=== PATIENT | female | born 1950 | race Caucasian/White ===

== ENCOUNTER → 2016-09-18 | Outpatient (CLI) | payer MEDICARE ==
[~2016-09-18] MED LIST: AMLO10TA2 PO; ASPI81TA13 PO; AZOP0.2S OU; AZUL500T3 PO; BIMA01SOL OD; BISO5TAB5 PO; COMB0.2S OU; DOXA1TAB41 PO; DRIS50002 PO; FENO145T PO; FOLI1TAB2 PO; HUMU70IN SC; METH2.5TA PO; MULTCAP PO; PRED1SUS OS; PRED5TA PO; QUIN40TA5 PO; SPIR50TA2 PO; SULF500T2 PO; VITA1CAP25 PO
[2016-09-18 13:36] LABS: CALCIUM LEVEL 8.6 MG/DL (8.8-10.2); CREATININE FOR GFR 2.72 MG/DL (0.55-1.02); GLOMERULAR FILTRATION RATE 18.7 (>45); POTASSIUM SERUM 3.6 MEQ/L (3.5-5.1)
== END ==
LOC: M WUC 09:45
PROVIDERS: ATTEND Physician Assistant Surgical
DX: N18.4 Chronic kidney disease, stage 4 (severe) (principal)

== ENCOUNTER 2017-08-04 19:52 | Emergency (ER) | payer MEDICARE, OTHER, BC ==
[2017-08-04] MEDS: MORPHINE 2 MG/ML 1ML SYRINGE (J2270) IV (21:00)
[2017-08-04 21:14] LABS: BASO % 0.5 % (0.0-1.0); EOS # 0.1 10^3/uL (0.0-0.50); EOS % 1.6 % (0.0-3.0); HEMATOCRIT 35.1 % (36.0-47.0); HEMOGLOBIN 11.1 g/dl (12.0-16.0); IMMATURE GRANULOCYTE % 1.3 % (0-3.0); LYMPH # 1.2 10^3/uL (1.5-4.5); LYMPH % 13.5 % (24.0-44.0); MEAN CORPUSCULAR HGB CONC 31.6 g/dl (32.0-36.5); MEAN CORPUSCULAR VOLUME 85.4 fl (80.0-96.0); MONO # 0.4 10^3/uL (0.0-0.8); MONO % 4.9 % (0.0-5.0); NEUTROPHILS # 6.8 10^3/uL (1.8-7.7); NEUTROPHILS % 78.2 % (36.0-66.0); PLATELET COUNT, AUTOMATED 194 10^3/uL (150-450); RED BLOOD COUNT 4.11 10^6/uL (4.00-5.40); RED CELL DISTRIBUTION WIDTH 14.6 % (11.5-14.5); WHITE BLOOD COUNT 8.6 10^3/uL (4.0-10.0)
[2017-08-04] MEDS: ASPIRIN 325 MG TAB PO (21:30)
[2017-08-04] MEDS: cloNIDine 0.1 MG TAB PO ×2 (21:30→23:49)
[2017-08-04 21:45] LABS: ANION GAP 11 MEQ/L (8-16); BLOOD UREA NITROGEN 43 MG/DL (7-18); CALCIUM LEVEL 9.2 MG/DL (8.8-10.2); CARBON DIOXIDE LEVEL 24 MEQ/L (21-32); CHLORIDE LEVEL 107 MEQ/L (98-107); CPK CREATINE PHOSPHOKINASE 76 U/L (26-192); CREATININE FOR GFR 2.99 MG/DL (0.55-1.30); GLOMERULAR FILTRATION RATE 16.7 (>45); GLUCOSE, FASTING 199 MG/DL (70-100); POTASSIUM SERUM 3.5 MEQ/L (3.5-5.1); SODIUM LEVEL 142 MEQ/L (136-145); TROPONIN I < 0.02 NG/ML (< 0.10)
[2017-08-04 21:46] LABS: CK-MB VALUE MASS 1.1 NG/ML (0.0-3.6); MB/CK RELATIVE INDEX 1.44 (< OR =4)
[2017-08-04 23:08] LABS: BEDSIDE GLUCOSE 155 MG/DL (80-115)
[2017-08-05 02:49] LABS: CPK CREATINE PHOSPHOKINASE 112 U/L (26-192); TROPONIN I 0.67 NG/ML (< 0.10)
[2017-08-05 02:50] LABS: CK-MB VALUE MASS 2.6 NG/ML (0.0-3.6); MB/CK RELATIVE INDEX 2.32 (< OR =4)
[2017-08-05 03:21] LABS: INR 1.08; PROTHROMBIN TIME 14.2 SECONDS (12.4-14.5)
[2017-08-05 03:22] LABS: PARTIAL THROMBOPLASTIN TIME 36.2 SECONDS (26.8-37.9)
[2017-08-05] MEDS: HEPARIN DRIP 25,000 UNITS in APPROPRIATE DILUENT 1 EA IV (03:25)
[2017-08-05] MEDS: HEPARIN SOD (PORCINE) 5000 UNITS/ML VIAL IV (03:25)
== END 2017-08-05 04:20 | disposition short-term general hospital (02) ==
LOC: M ED 08-05 04:20
DX: I21.4 Non-ST elevation (NSTEMI) myocardial infarction (principal); E11.9 Type 2 diabetes mellitus without complications; I10 Essential (primary) hypertension; E78.5 Hyperlipidemia, unspecified; N28.9 Disorder of kidney and ureter, unspecified; I25.10 Atherosclerotic heart disease of native coronary artery without angina pectoris; Z99.2 Dependence on renal dialysis; Z95.5 Presence of coronary angioplasty implant and graft; Z79.899 Other long term (current) drug therapy; Z79.82 Long term (current) use of aspirin; Z79.4 Long term (current) use of insulin
CPT/HCPCS: 71045

== ENCOUNTER → 2018-03-09 | Outpatient (CLI) | payer MEDICARE, OTHER | LOC: M WUC 09:33 | DX: M17.12 Unilateral primary osteoarthritis, left knee (principal); I73.9 Peripheral vascular disease, unspecified; M25.562 Pain in left knee ==

== ENCOUNTER 2018-03-10 02:13 | Inpatient (IN) | payer MEDICARE, OTHER ==
[2018-03-10 02:43] LABS: BEDSIDE GLUCOSE 120 MG/DL (80-115)
[2018-03-10 03:03] LABS: ABG BASE EXCESS -2.7 (-2.0-2.0); ABG HCO3 23.3 MEQ/L (22.0-26.0); ABG O2 SATURATION 91.2 % (95.0-99.0); ABG PARTIAL PRESSURE CO2 45.8 mmHg (35.0-45.0); ABG PARTIAL PRESSURE O2 67.6 mmHg (75.0-100.0); ABG STANDARD HCO3 22.1 MEQ/L (22.0-26.0); ABG TOTAL CO2 24.7 MEQ/L (23.0-31.0); ABG pH (ARTERIAL) 7.324 UNITS (7.350-7.450); BASO % 0.2 % (0.0-1.0); EOS # 0.2 10^3/uL (0.0-0.50); EOS % 1.5 % (0.0-3.0); HEMOGLOBIN 8.6 g/dl (12.0-15.5); IMMATURE GRANULOCYTE % 0.7 % (0-3.0); LYMPH # 1.1 10^3/uL (1.5-4.5); LYMPH % 8.1 % (24.0-44.0); MEAN CORPUSCULAR HEMOGLOBIN 27.2 pg (27.0-33.0); MEAN CORPUSCULAR HGB CONC 30.7 g/dl (32.0-36.5); MEAN CORPUSCULAR VOLUME 88.6 fl (80.0-96.0); MONO # 0.7 10^3/uL (0.0-0.8); MONO % 5.5 % (0.0-5.0); NEUTROPHILS # 10.9 10^3/uL (1.8-7.7); PLATELET COUNT, AUTOMATED 164 10^3/uL (150-450); RED BLOOD COUNT 3.16 10^6/uL (4.00-5.40); RED CELL DISTRIBUTION WIDTH 14.8 % (11.5-14.5)
[2018-03-10] MEDS: NITROGLYCERIN 2% OINT 1 GM *U/D* PKT TOP (03:03)
[2018-03-10 03:14] LABS: ANION GAP 12 MEQ/L (8-16); BLOOD UREA NITROGEN 60 MG/DL (7-18); CALCIUM LEVEL 8.4 MG/DL (8.8-10.2); CARBON DIOXIDE LEVEL 22 MEQ/L (21-32); CHLORIDE LEVEL 111 MEQ/L (98-107); CPK CREATINE PHOSPHOKINASE 78 U/L (26-192); CREATININE FOR GFR 3.68 MG/DL (0.55-1.30); GLOMERULAR FILTRATION RATE 13.1 (>45); GLUCOSE, FASTING 119 MG/DL (70-100); MB/CK RELATIVE INDEX 1.41 (< OR =4); NT-PRO BNP 23771 PG/ML (<125); SODIUM LEVEL 145 MEQ/L (136-145); TROPONIN I 0.05 NG/ML (< 0.10)
[2018-03-10] MEDS ORDERED: NITROGLYCERIN IN D5W 25MG/250ML (100MCG/ML) As Ordered (03:33)
[2018-03-10] MEDS ORDERED: FUROSEMIDE 100 MG/10 ML VIAL (J1940) As Ordered (03:42)
[2018-03-10] MEDS: FUROSEMIDE 100 MG/10 ML VIAL (J1940) IV ×3 (03:45→10:57)
[2018-03-10] MEDS: NITROGLYCERIN/D5W 100MCG/ML 25 MG in APPROPRIATE DILUENT 1 EA IV ×2 (03:45→09:06)
[2018-03-10] MEDS: hydrALAZINE INJ 20 MG/ML VIAL IV (04:45)
[2018-03-10] MEDS ORDERED: GLUCOSE 4 GM CHEW TABLET PO (06:00)
[2018-03-10] MEDS ORDERED: GLUCAGON FOR INJ 1 MG VIAL (J1610) SC (06:00)
[2018-03-10] MEDS: HumaLOG INSULIN (NovoLOG) PER UNIT SC ×3 (06:00→18:00)
[2018-03-10] MEDS ORDERED: DEXTROSE 50% 50 ML SYRINGE IV (06:00)
[2018-03-10 06:14] LABS: FERRITIN 105 NG/ML (8-252); IRON (FE) 20 UG/DL (50-170); MAGNESIUM LEVEL 2.2 MG/DL (1.8-2.4); PERCENT SATURATION 7.5 % (13.2-45.0); PHOSPHORUS LEVEL 5.3 MG/DL (2.5-4.9); THYROID STIMULATING HORMONE 0.698 uIU/ML (0.358-3.740); TOTAL IRON BINDING CAPACITY 266 UG/DL (250-450)
[2018-03-10 06:44] LABS: BEDSIDE GLUCOSE 139 MG/DL (80-115)
[2018-03-10] MEDS: cefTRIAXone SOD 1 GM in D5W MINI-BAG PLUS 50 ML IV (07:01)
[2018-03-10] MEDS: CHLOROTHIAZIDE 500 MG VIAL (J1205) IV ×2 (07:01→16:07)
[2018-03-10 08:26] LABS: TROPONIN I 0.28 NG/ML (< 0.10)
[2018-03-10] MEDS: TICAGRELOR 90 MG TABLET (BRILINTA) PO ×2 (08:58→21:30)
[2018-03-10] MEDS: sulfaSALAzine 500 MG TABEC PO ×2 (08:58→21:18)
[2018-03-10] MEDS: POTASSIUM CHLORIDE 10 MEQ SR TABLET PO (08:59)
[2018-03-10] MEDS: FOLIC ACID 1 MG TAB PO (08:59)
[2018-03-10] MEDS: predniSONE 5 MG TAB PO (08:59)
[2018-03-10] MEDS: ASPIRIN 81 MG ENTERIC TAB PO (08:59)
[2018-03-10] MEDS: TIMOLOL MALEATE 0.5% OPHTH SOLN 5 ML OU ×2 (09:06→21:26)
[2018-03-10] MEDS: AZITHROMYCIN INJ 500 MG, VIAL MATE ADAPTER 1 EACH in D5W 250 ML IV (09:06)
[2018-03-10] MEDS: prednisoLONE ACET 1% OPHTH SUSP 5ML OS (09:09)
[2018-03-10 12:24] LABS: BEDSIDE GLUCOSE 242 MG/DL (80-115)
[2018-03-10] MEDS: FUROSEMIDE injection 250 MG in D5W 225 ML IV (12:25)
[2018-03-10] MEDS ORDERED: ETOMIDATE INJ 20MG/10ML VIAL As Ordered (12:50)
[2018-03-10] MEDS ORDERED: fentaNYL 100 MCG/2 ML INJECTION (J3010) As Ordered (12:50)
[2018-03-10] MEDS ORDERED: PROPOFOL 1,000 MG/100 ML VIAL As Ordered (12:50)
[2018-03-10] MEDS: fentaNYL 100 MCG/2 ML INJECTION (J3010) IV (12:57)
[2018-03-10] MEDS: ETOMIDATE INJ 20MG/10ML VIAL IV (13:00)
[2018-03-10] MEDS ORDERED: MIDAZOLAM INJ 2 MG/2 ML VIAL (J2250) As Ordered ×3 (13:01→13:33)
[2018-03-10] MEDS: MIDAZOLAM INJ 2 MG/2 ML VIAL (J2250) IV ×2 (13:15→13:43)
[2018-03-10] MEDS: PROPOFOL 1,000 MG in APPROPRIATE DILUENT 1 EA IV ×4 (13:20→18:48)
[2018-03-10 14:40] LABS: HEMOGLOBIN 7.4 g/dl (12.0-15.5)
[2018-03-10 15:06] LABS: ANION GAP 10 MEQ/L (8-16); BLOOD UREA NITROGEN 60 MG/DL (7-18); CALCIUM LEVEL 7.7 MG/DL (8.8-10.2); CARBON DIOXIDE LEVEL 25 MEQ/L (21-32); CHLORIDE LEVEL 108 MEQ/L (98-107); CREATININE FOR GFR 3.92 MG/DL (0.55-1.30); GLOMERULAR FILTRATION RATE 12.2 (>45); GLUCOSE, FASTING 151 MG/DL (70-100); POTASSIUM SERUM 3.5 MEQ/L (3.5-5.1); SODIUM LEVEL 143 MEQ/L (136-145)
[2018-03-10] MEDS ORDERED: SODIUM CHLORIDE 0.9% INJ 10 ML SYR IV (15:15)
[2018-03-10 15:27] LABS: ABG O2 SATURATION 93.6 % (95.0-99.0); ABG PARTIAL PRESSURE CO2 33.8 mmHg (35.0-45.0); ABG PARTIAL PRESSURE O2 69.3 mmHg (75.0-100.0); ABG STANDARD HCO3 22.8 MEQ/L (22.0-26.0); ABG pH (ARTERIAL) 7.431 UNITS (7.350-7.450)
[2018-03-10] MEDS: PANTOPRAZOLE 40MG INJ (PROTONIX) (C9113) IV (16:07)
[2018-03-10 16:20] LABS: ESTIMATED AVERAGE GLUCOSE 160 MG/DL (60-110); HEMOGLOBIN A1c 7.2 %
[2018-03-10 16:34] LABS: CHOLESTEROL LEVEL 100 MG/DL (<200); CHOLESTEROL RISK RATIO 2.222 (<5); HDL CHOLESTEROL 45 MG/DL (>40); LDL CHOLESTEROL 29 MG/DL (<100); NON-HDL-C 55 MG/DL; TRIGLYCERIDES LEVEL 130 MG/DL (<150)
[2018-03-10 18:12] LABS: BEDSIDE GLUCOSE 80 MG/DL (80-115)
[2018-03-10 18:52] LABS: BEDSIDE GLUCOSE 73 MG/DL (80-115)
[2018-03-10 19:34] LABS: BEDSIDE GLUCOSE 74 MG/DL (80-115)
[2018-03-10] MEDS: AMPICILLIN SOD/SULBACTAM SOD 3 GM in D5W MINI-BAG PLUS 100 ML IV (19:47)
[2018-03-10 19:50] LABS: HEMATOCRIT 25.2 % (36.0-47.0); HEMOGLOBIN 7.9 g/dl (12.0-15.5)
[2018-03-10 19:57] LABS: BEDSIDE GLUCOSE 62 MG/DL (80-115)
[2018-03-10 19:58] LABS: BEDSIDE GLUCOSE 66 MG/DL (80-115)
[2018-03-10 20:16] LABS: BEDSIDE GLUCOSE 95 MG/DL (80-115)
[2018-03-10] MEDS: IPRATROPIUM 0.5MG/ALBUTEROL 2.5MG INH SOL UD 3ML (DUONEB)(J7620) NEB (20:24)
[2018-03-10] MEDS ORDERED: HEPARIN SOD (PORCINE) 5000 UNITS/ML VIAL SQ (21:00)
[2018-03-10] MEDS: CARVedilol 12.5 MG TAB PO ×3 (21:00→21:58)
[2018-03-10] MEDS: ATORVASTATIN 20 MG TAB PO (21:18)
[2018-03-10] MEDS: TERAZOSIN 1 MG CAP PO (21:20)
[2018-03-10] MEDS: CHLORHEXIDINE ORAL RINSE 0.12%/15ML 120ML BOTTLE MT (21:25)
[2018-03-10] MEDS: LEVEMIR (INSULIN DETEMIR) 1 UNITS/0.01ML SC (21:26)
[2018-03-10] MEDS: SODIUM CHLORIDE 0.9% INJ 10 ML SYR IV (21:27)
[2018-03-10 21:47] LABS: BEDSIDE GLUCOSE 94 MG/DL (80-115)
[2018-03-10 22:03] LABS: CPK CREATINE PHOSPHOKINASE 117 U/L (26-192); MB/CK RELATIVE INDEX 3.08 (< OR =4); TROPONIN I 1.34 NG/ML (< 0.10)
[2018-03-11] MEDS: FUROSEMIDE injection 250 MG in D5W 225 ML IV ×2 (00:53→14:19)
[2018-03-11 00:58] LABS: BEDSIDE GLUCOSE 81 MG/DL (80-115)
[2018-03-11] MEDS: PROPOFOL 1,000 MG in APPROPRIATE DILUENT 1 EA IV ×3 (04:07→18:24)
[2018-03-11 05:30] LABS: HEMATOCRIT 23.8 % (36.0-47.0); HEMOGLOBIN 7.4 g/dl (12.0-15.5); MEAN CORPUSCULAR HEMOGLOBIN 26.7 pg (27.0-33.0); MEAN CORPUSCULAR HGB CONC 31.1 g/dl (32.0-36.5); MEAN CORPUSCULAR VOLUME 85.9 fl (80.0-96.0); PLATELET COUNT, AUTOMATED 109 10^3/uL (150-450); RED BLOOD COUNT 2.77 10^6/uL (4.00-5.40); RED CELL DISTRIBUTION WIDTH 14.9 % (11.5-14.5); WHITE BLOOD COUNT 14.7 10^3/uL (4.0-10.0)
[2018-03-11 05:31] LABS: BEDSIDE GLUCOSE 80 MG/DL (80-115)
[2018-03-11 05:35] LABS: ABG BASE EXCESS 1.2 (-2.0-2.0); ABG HCO3 23.5 MEQ/L (22.0-26.0); ABG O2 SATURATION 98.8 % (95.0-99.0); ABG PARTIAL PRESSURE CO2 28.3 mmHg (35.0-45.0); ABG STANDARD HCO3 25.6 MEQ/L (22.0-26.0); ABG TOTAL CO2 24.4 MEQ/L (23.0-31.0); ABG pH (ARTERIAL) 7.537 UNITS (7.350-7.450)
[2018-03-11 05:58] LABS: ANION GAP 9 MEQ/L (8-16); BLOOD UREA NITROGEN 32 MG/DL (7-18); CALCIUM LEVEL 7.9 MG/DL (8.8-10.2); CARBON DIOXIDE LEVEL 28 MEQ/L (21-32); CHLORIDE LEVEL 105 MEQ/L (98-107); CREATININE FOR GFR 2.82 MG/DL (0.55-1.30); GLOMERULAR FILTRATION RATE 17.9 (>45); GLUCOSE, FASTING 76 MG/DL (70-100); POTASSIUM SERUM 3.4 MEQ/L (3.5-5.1); SODIUM LEVEL 142 MEQ/L (136-145)
[2018-03-11] MEDS: SODIUM CHLORIDE 0.9% INJ 10 ML SYR IV ×3 (06:00→21:14)
[2018-03-11] MEDS: HumaLOG INSULIN (NovoLOG) PER UNIT SC ×4 (06:00→18:25)
[2018-03-11] MEDS ORDERED: FUROSEMIDE 40 MG/4 ML VIAL (J1940) IV (06:00)
[2018-03-11] MEDS: IPRATROPIUM 0.5MG/ALBUTEROL 2.5MG INH SOL UD 3ML (DUONEB)(J7620) NEB ×4 (07:15→19:36)
[2018-03-11] MEDS ORDERED: FLUBLOK(EGG FREE)(QUAD)INFLUENZA VACC 0.5ML SYRINGE (90682)18YRS&OLDER IM (09:00)
[2018-03-11] MEDS: predniSONE 5 MG TAB PO (09:00)
[2018-03-11] MEDS: CHLORHEXIDINE ORAL RINSE 0.12%/15ML 120ML BOTTLE MT ×2 (09:28→20:16)
[2018-03-11] MEDS: prednisoLONE ACET 1% OPHTH SUSP 5ML OS (09:29)
[2018-03-11] MEDS: PANTOPRAZOLE 40MG INJ (PROTONIX) (C9113) IV (09:29)
[2018-03-11] MEDS: TIMOLOL MALEATE 0.5% OPHTH SOLN 5 ML OU ×2 (09:29→20:16)
[2018-03-11] MEDS ORDERED: PILL CRUSHER/CUTTER 1 EACH XX (09:30)
[2018-03-11 10:00] LABS: HEPATITIS B SURFACE ANTIBODY NEGATIVE (POSITIVE)
[2018-03-11] MEDS: ASPIRIN 81 MG ENTERIC TAB PO (10:08)
[2018-03-11] MEDS: methylPREDNISolone INJ 40 MG/1 ML VIAL (J2920) IV (10:08)
[2018-03-11] MEDS: sulfaSALAzine 500 MG TABEC PO ×2 (10:09→20:16)
[2018-03-11] MEDS: TICAGRELOR 90 MG TABLET (BRILINTA) PO ×2 (10:09→20:15)
[2018-03-11] MEDS: FOLIC ACID 1 MG TAB PO (10:09)
[2018-03-11 10:11] LABS: HEPATITIS B SURFACE ANTIGEN NEGATIVE (NEGATIVE)
[2018-03-11 10:39] LABS: HEPATITIS B CORE ANTIBODY IGM NEGATIVE (NEGATIVE); HEPATITIS C VIRUS ABY INDEX 0.1 INDEX (<0.8)
[2018-03-11 10:41] LABS: ABG BASE EXCESS 3.7 (-2.0-2.0); ABG HCO3 26.7 MEQ/L (22.0-26.0); ABG PARTIAL PRESSURE CO2 33.4 mmHg (35.0-45.0); ABG STANDARD HCO3 27.7 MEQ/L (22.0-26.0); ABG TOTAL CO2 27.7 MEQ/L (23.0-31.0)
[2018-03-11] MEDS: HEPARIN SOD (PORCINE) 5000 UNITS/ML VIAL SQ ×2 (12:04→20:16)
[2018-03-11 12:19] LABS: BEDSIDE GLUCOSE 116 MG/DL (80-115)
[2018-03-11 13:13] LABS: IMMEDIATE SPIN CROSSMATCH 1 1
[2018-03-11 13:25] LABS: PROCALCITONIN 18.93 NG/ML (<0.10)
[2018-03-11] MEDS: POTASSIUM CHLORIDE 10% LIQ 20 MEQ/15 ML UDC PO (13:52)
[2018-03-11 17:55] LABS: BEDSIDE GLUCOSE 202 MG/DL (80-115)
[2018-03-11] MEDS: AMPICILLIN SOD/SULBACTAM SOD 3 GM in D5W MINI-BAG PLUS 100 ML IV (18:25)
[2018-03-11] MEDS: TERAZOSIN 1 MG CAP PO (20:14)
[2018-03-11] MEDS: ATORVASTATIN 20 MG TAB PO (20:16)
[2018-03-12] MEDS: HumaLOG INSULIN (NovoLOG) PER UNIT SC ×4 (00:08→17:50)
[2018-03-12 00:09] LABS: BEDSIDE GLUCOSE 307 MG/DL (80-115)
[2018-03-12] MEDS: PROPOFOL 1,000 MG in APPROPRIATE DILUENT 1 EA IV ×3 (02:14→17:49)
[2018-03-12 05:09] LABS: HEMOGLOBIN 8.4 g/dl (12.0-15.5); MEAN CORPUSCULAR HEMOGLOBIN 26.5 pg (27.0-33.0); MEAN CORPUSCULAR HGB CONC 32.3 g/dl (32.0-36.5); PLATELET COUNT, AUTOMATED 106 10^3/uL (150-450); RED BLOOD COUNT 3.17 10^6/uL (4.00-5.40); RED CELL DISTRIBUTION WIDTH 15.7 % (11.5-14.5); WHITE BLOOD COUNT 15.8 10^3/uL (4.0-10.0)
[2018-03-12 05:45] LABS: ANION GAP 9 MEQ/L (8-16); BLOOD UREA NITROGEN 50 MG/DL (7-18); CALCIUM LEVEL 7.6 MG/DL (8.8-10.2); CARBON DIOXIDE LEVEL 29 MEQ/L (21-32); CHLORIDE LEVEL 102 MEQ/L (98-107); CREATININE FOR GFR 3.99 MG/DL (0.55-1.30); GLUCOSE, FASTING 301 MG/DL (70-100); POTASSIUM SERUM 3.5 MEQ/L (3.5-5.1); SODIUM LEVEL 140 MEQ/L (136-145)
[2018-03-12 05:51] LABS: ABG HCO3 26.5 MEQ/L (22.0-26.0); ABG O2 SATURATION 98.2 % (95.0-99.0); ABG PARTIAL PRESSURE CO2 35.6 mmHg (35.0-45.0); ABG PARTIAL PRESSURE O2 100.7 mmHg (75.0-100.0); ABG STANDARD HCO3 27.2 MEQ/L (22.0-26.0); ABG TOTAL CO2 27.6 MEQ/L (23.0-31.0); ABG pH (ARTERIAL) 7.489 UNITS (7.350-7.450)
[2018-03-12] MEDS: SODIUM CHLORIDE 0.9% INJ 10 ML SYR IV ×3 (06:14→22:34)
[2018-03-12] MEDS: IPRATROPIUM 0.5MG/ALBUTEROL 2.5MG INH SOL UD 3ML (DUONEB)(J7620) NEB ×4 (08:09→20:17)
[2018-03-12] MEDS: TIMOLOL MALEATE 0.5% OPHTH SOLN 5 ML OU ×2 (08:16→20:09)
[2018-03-12] MEDS: prednisoLONE ACET 1% OPHTH SUSP 5ML OS (08:16)
[2018-03-12] MEDS: PANTOPRAZOLE 40MG INJ (PROTONIX) (C9113) IV (08:23)
[2018-03-12] MEDS: sulfaSALAzine 500 MG TABEC PO ×2 (08:24→20:05)
[2018-03-12] MEDS: HEPARIN SOD (PORCINE) 5000 UNITS/ML VIAL SQ ×3 (08:24→22:34)
[2018-03-12] MEDS: TICAGRELOR 90 MG TABLET (BRILINTA) PO ×2 (08:24→20:07)
[2018-03-12] MEDS: ASPIRIN 81 MG ENTERIC TAB PO (08:24)
[2018-03-12] MEDS: FOLIC ACID 1 MG TAB PO (08:25)
[2018-03-12] MEDS: CHLORHEXIDINE ORAL RINSE 0.12%/15ML 120ML BOTTLE MT ×2 (08:25→20:04)
[2018-03-12 08:39] LABS: HEPATITIS B CORE ANTIBODY IGG Negative (Negative)
[2018-03-12] MEDS: methylPREDNISolone INJ 40 MG/1 ML VIAL (J2920) IV (09:10)
[2018-03-12 09:12] LABS: TROPONIN I 0.99 NG/ML (< 0.10)
[2018-03-12 12:04] LABS: BEDSIDE GLUCOSE 293 MG/DL (80-115)
[2018-03-12] MEDS: CARVedilol 12.5 MG TAB PO ×2 (12:08→20:07)
[2018-03-12] MEDS ORDERED: DOCUSATE SOD LIQ 100MG/10ML UDC GT (13:30)
[2018-03-12] MEDS: IRON POLYSAC (NIFEREX) 150 MG CAP PO ×2 (15:21→20:05)
[2018-03-12 17:39] LABS: BEDSIDE GLUCOSE 230 MG/DL (80-115)
[2018-03-12] MEDS: AMPICILLIN SOD/SULBACTAM SOD 3 GM in D5W MINI-BAG PLUS 100 ML IV (17:49)
[2018-03-12] MEDS: LEVEMIR (INSULIN DETEMIR) 1 UNITS/0.01ML SC (20:04)
[2018-03-12] MEDS: ATORVASTATIN 20 MG TAB PO (20:08)
[2018-03-12] MEDS: TERAZOSIN 1 MG CAP PO (20:09)
[2018-03-12] MEDS: FUROSEMIDE injection 250 MG in D5W 225 ML IV (20:12)
[2018-03-12] MEDS ORDERED: IRON SUCROSE 100MG 5ML VIAL (J1756 PER 1MG) IV (20:45)
[2018-03-13 00:08] LABS: BODY FLUID CULTURE Not Indicated (.); LEGIONELLA ANTIGEN URINE Negative (Negative); ORGANISM ID Not indicated. (.); SPECIMEN SOURCE Urine (.); URINE STREP PNEUMONIAE ANTIGEN Negative (Negative)
[2018-03-13 00:12] LABS: BEDSIDE GLUCOSE 283 MG/DL (80-115)
[2018-03-13] MEDS: HumaLOG INSULIN (NovoLOG) PER UNIT SC ×5 (01:08→23:40)
[2018-03-13 05:22] LABS: HEMATOCRIT 24.7 % (36.0-47.0); HEMOGLOBIN 7.8 g/dl (12.0-15.5); MEAN CORPUSCULAR HEMOGLOBIN 26.2 pg (27.0-33.0); MEAN CORPUSCULAR HGB CONC 31.6 g/dl (32.0-36.5); MEAN CORPUSCULAR VOLUME 82.9 fl (80.0-96.0); PLATELET COUNT, AUTOMATED 124 10^3/uL (150-450); RED BLOOD COUNT 2.98 10^6/uL (4.00-5.40); RED CELL DISTRIBUTION WIDTH 15.9 % (11.5-14.5); WHITE BLOOD COUNT 15.3 10^3/uL (4.0-10.0)
[2018-03-13 05:49] LABS: ANION GAP 7 MEQ/L (8-16); BLOOD UREA NITROGEN 41 MG/DL (7-18); CALCIUM LEVEL 8.2 MG/DL (8.8-10.2); CARBON DIOXIDE LEVEL 31 MEQ/L (21-32); CHLORIDE LEVEL 102 MEQ/L (98-107); CREATININE FOR GFR 2.82 MG/DL (0.55-1.30); GLOMERULAR FILTRATION RATE 17.9 (>45); GLUCOSE, FASTING 187 MG/DL (70-100); POTASSIUM SERUM 3.8 MEQ/L (3.5-5.1); SODIUM LEVEL 140 MEQ/L (136-145)
[2018-03-13 06:17] LABS: BEDSIDE GLUCOSE 169 MG/DL (80-115)
[2018-03-13] MEDS: HEPARIN SOD (PORCINE) 5000 UNITS/ML VIAL SQ ×3 (06:25→22:39)
[2018-03-13] MEDS: SODIUM CHLORIDE 0.9% INJ 10 ML SYR IV ×3 (06:26→22:39)
[2018-03-13 06:27] LABS: ABG BASE EXCESS 4.1 (-2.0-2.0); ABG HCO3 27.2 MEQ/L (22.0-26.0); ABG O2 SATURATION 97.3 % (95.0-99.0); ABG PARTIAL PRESSURE CO2 34.9 mmHg (35.0-45.0); ABG PARTIAL PRESSURE O2 89.3 mmHg (75.0-100.0); ABG STANDARD HCO3 28.1 MEQ/L (22.0-26.0); ABG TOTAL CO2 28.3 MEQ/L (23.0-31.0)
[2018-03-13] MEDS: IPRATROPIUM 0.5MG/ALBUTEROL 2.5MG INH SOL UD 3ML (DUONEB)(J7620) NEB ×4 (07:16→19:47)
[2018-03-13] MEDS: PROPOFOL 1,000 MG in APPROPRIATE DILUENT 1 EA IV (07:55)
[2018-03-13] MEDS: CHLORHEXIDINE ORAL RINSE 0.12%/15ML 120ML BOTTLE MT (08:49)
[2018-03-13] MEDS: ASPIRIN 81 MG CHEW TABLET NG (08:49)
[2018-03-13] MEDS: PANTOPRAZOLE 40MG INJ (PROTONIX) (C9113) IV (08:49)
[2018-03-13] MEDS: FOLIC ACID 1 MG TAB PO (08:50)
[2018-03-13] MEDS: CARVedilol 12.5 MG TAB PO ×2 (08:50→20:26)
[2018-03-13] MEDS: TICAGRELOR 90 MG TABLET (BRILINTA) PO ×2 (08:50→20:26)
[2018-03-13] MEDS: predniSONE 20 MG TAB PO (08:50)
[2018-03-13] MEDS: TIMOLOL MALEATE 0.5% OPHTH SOLN 5 ML OU ×2 (08:50→20:26)
[2018-03-13] MEDS: sulfaSALAzine 500 MG TABEC PO ×2 (08:51→20:27)
[2018-03-13] MEDS: prednisoLONE ACET 1% OPHTH SUSP 5ML OS (08:51)
[2018-03-13] MEDS: IRON POLYSAC (NIFEREX) 150 MG CAP PO ×2 (09:00→20:24)
[2018-03-13 09:23] LABS: ABG BASE EXCESS 2.5 (-2.0-2.0); ABG HCO3 25.2 MEQ/L (22.0-26.0); ABG O2 SATURATION 95.3 % (95.0-99.0); ABG PARTIAL PRESSURE CO2 31.9 mmHg (35.0-45.0); ABG PARTIAL PRESSURE O2 73.9 mmHg (75.0-100.0); ABG STANDARD HCO3 26.6 MEQ/L (22.0-26.0); ABG TOTAL CO2 26.2 MEQ/L (23.0-31.0); ABG pH (ARTERIAL) 7.516 UNITS (7.350-7.450)
[2018-03-13 12:01] LABS: BEDSIDE GLUCOSE 137 MG/DL (80-115)
[2018-03-13] MEDS: hydrALAZINE INJ 20 MG/ML VIAL IV (12:47)
[2018-03-13 18:01] LABS: BEDSIDE GLUCOSE 220 MG/DL (80-115)
[2018-03-13] MEDS: AMPICILLIN SOD/SULBACTAM SOD 3 GM in D5W MINI-BAG PLUS 100 ML IV (18:06)
[2018-03-13] MEDS: amLODIPine 10 MG TAB PO (18:31)
[2018-03-13] MEDS: ATORVASTATIN 20 MG TAB PO (20:20)
[2018-03-13] MEDS: LEVEMIR (INSULIN DETEMIR) 1 UNITS/0.01ML SC (20:22)
[2018-03-13] MEDS: TERAZOSIN 1 MG CAP PO (20:24)
[2018-03-13 23:37] LABS: BEDSIDE GLUCOSE 155 MG/DL (80-115)
[2018-03-14 05:38] LABS: BEDSIDE GLUCOSE 68 MG/DL (80-115)
[2018-03-14 05:53] LABS: HEMATOCRIT 25.9 % (36.0-47.0); HEMOGLOBIN 8.3 g/dl (12.0-15.5); MEAN CORPUSCULAR HEMOGLOBIN 26.8 pg (27.0-33.0); MEAN CORPUSCULAR VOLUME 83.5 fl (80.0-96.0); PLATELET COUNT, AUTOMATED 136 10^3/uL (150-450); RED CELL DISTRIBUTION WIDTH 15.9 % (11.5-14.5)
[2018-03-14] MEDS: HumaLOG INSULIN (NovoLOG) PER UNIT SC ×4 (06:00→21:44)
[2018-03-14 06:05] LABS: BEDSIDE GLUCOSE 71 MG/DL (80-115)
[2018-03-14] MEDS: HEPARIN SOD (PORCINE) 5000 UNITS/ML VIAL SQ ×3 (06:30→21:43)
[2018-03-14] MEDS: SODIUM CHLORIDE 0.9% INJ 10 ML SYR IV ×3 (06:30→22:37)
[2018-03-14 06:34] LABS: BEDSIDE GLUCOSE 90 MG/DL (80-115)
[2018-03-14 06:52] LABS: ANION GAP 10 MEQ/L (8-16); BLOOD UREA NITROGEN 61 MG/DL (7-18); CALCIUM LEVEL 7.7 MG/DL (8.8-10.2); CARBON DIOXIDE LEVEL 30 MEQ/L (21-32); CHLORIDE LEVEL 103 MEQ/L (98-107); GLOMERULAR FILTRATION RATE 14.4 (>45); GLUCOSE, FASTING 62 MG/DL (70-100); POTASSIUM SERUM 3.6 MEQ/L (3.5-5.1); SODIUM LEVEL 143 MEQ/L (136-145)
[2018-03-14] MEDS: IPRATROPIUM 0.5MG/ALBUTEROL 2.5MG INH SOL UD 3ML (DUONEB)(J7620) NEB (07:47)
[2018-03-14] MEDS: TIMOLOL MALEATE 0.5% OPHTH SOLN 5 ML OU ×2 (09:44→21:41)
[2018-03-14] MEDS: prednisoLONE ACET 1% OPHTH SUSP 5ML OS (09:44)
[2018-03-14] MEDS: PANTOPRAZOLE 40MG INJ (PROTONIX) (C9113) IV (09:44)
[2018-03-14] MEDS: CARVedilol 12.5 MG TAB PO ×2 (09:45→21:42)
[2018-03-14] MEDS: predniSONE 20 MG TAB PO (09:45)
[2018-03-14] MEDS: HEPARIN 1,000 UNITS/ML 10ML VIAL (FOR RADIOLOGY& DIALYSIS ONLY) IV (11:45)
[2018-03-14] MEDS ORDERED: DARBEPOETIN 100 MCG/0.5 ML *DIALYSIS* SYRINGE (J0882) IV (12:00)
[2018-03-14 12:57] LABS: BEDSIDE GLUCOSE 147 MG/DL (80-115)
[2018-03-14] MEDS: FOLIC ACID 1 MG TAB PO (13:24)
[2018-03-14] MEDS: ASPIRIN 81 MG CHEW TABLET NG (13:24)
[2018-03-14] MEDS: TICAGRELOR 90 MG TABLET (BRILINTA) PO ×2 (13:24→21:42)
[2018-03-14] MEDS: IRON POLYSAC (NIFEREX) 150 MG CAP PO ×2 (13:25→21:43)
[2018-03-14] MEDS: amLODIPine 10 MG TAB PO (13:26)
[2018-03-14] MEDS: sulfaSALAzine 500 MG TABEC PO ×2 (13:35→21:43)
[2018-03-14 17:27] LABS: BEDSIDE GLUCOSE 279 MG/DL (80-115)
[2018-03-14] MEDS: AMPICILLIN SOD/SULBACTAM SOD 3 GM in D5W MINI-BAG PLUS 100 ML IV (17:35)
[2018-03-14] MEDS: BRIMONIDINE 0.15% OPHTH SOLN 5 ML OU ×2 (17:36→21:41)
[2018-03-14] MEDS: BRINZOLAMIDE 1 % OPHTH SUSP (AZOPT) 10ML OU ×2 (17:36→21:41)
[2018-03-14] MEDS: LATANOPROST 0.005% OPHTH SOLN 2.5 ML OD (21:41)
[2018-03-14] MEDS: ATORVASTATIN 20 MG TAB PO (21:42)
[2018-03-14] MEDS: TERAZOSIN 1 MG CAP PO (21:43)
[2018-03-14] MEDS: LEVEMIR (INSULIN DETEMIR) 1 UNITS/0.01ML SC (21:44)
[2018-03-14 23:59] LABS: BEDSIDE GLUCOSE 238 MG/DL (80-115)
[2018-03-15] MEDS: SODIUM CHLORIDE 0.9% INJ 10 ML SYR IV ×4 (05:03→22:00)
[2018-03-15] MEDS: HEPARIN SOD (PORCINE) 5000 UNITS/ML VIAL SQ ×3 (05:04→21:13)
[2018-03-15 05:19] LABS: HEMATOCRIT 26.8 % (36.0-47.0); HEMOGLOBIN 8.3 g/dl (12.0-15.5); MEAN CORPUSCULAR HEMOGLOBIN 26.3 pg (27.0-33.0); MEAN CORPUSCULAR VOLUME 85.1 fl (80.0-96.0); PLATELET COUNT, AUTOMATED 143 10^3/uL (150-450); RED BLOOD COUNT 3.15 10^6/uL (4.00-5.40); RED CELL DISTRIBUTION WIDTH 15.6 % (11.5-14.5); WHITE BLOOD COUNT 10.9 10^3/uL (4.0-10.0)
[2018-03-15 05:53] LABS: ANION GAP 7 MEQ/L (8-16); BLOOD UREA NITROGEN 39 MG/DL (7-18); CALCIUM LEVEL 7.8 MG/DL (8.8-10.2); CARBON DIOXIDE LEVEL 30 MEQ/L (21-32); CHLORIDE LEVEL 105 MEQ/L (98-107); CREATININE FOR GFR 2.45 MG/DL (0.55-1.30); GLUCOSE, FASTING 144 MG/DL (70-100); POTASSIUM SERUM 3.5 MEQ/L (3.5-5.1); SODIUM LEVEL 142 MEQ/L (136-145)
[2018-03-15] MEDS: PANTOPRAZOLE 40MG TAB (PROTONIX) PO (08:40)
[2018-03-15] MEDS: HumaLOG INSULIN (NovoLOG) PER UNIT SC ×4 (08:40→21:12)
[2018-03-15] MEDS: sulfaSALAzine 500 MG TABEC PO ×2 (08:41→20:15)
[2018-03-15] MEDS: amLODIPine 10 MG TAB PO (08:43)
[2018-03-15] MEDS: predniSONE 10 MG TAB PO (08:43)
[2018-03-15] MEDS: TICAGRELOR 90 MG TABLET (BRILINTA) PO ×2 (08:43→20:15)
[2018-03-15] MEDS: ASPIRIN 81 MG CHEW TABLET NG (08:43)
[2018-03-15] MEDS: IRON POLYSAC (NIFEREX) 150 MG CAP PO ×2 (08:44→20:15)
[2018-03-15] MEDS: CARVedilol 12.5 MG TAB PO ×2 (08:44→20:16)
[2018-03-15] MEDS: TIMOLOL MALEATE 0.5% OPHTH SOLN 5 ML OU ×2 (08:44→20:17)
[2018-03-15] MEDS: FOLIC ACID 1 MG TAB PO (08:44)
[2018-03-15] MEDS: prednisoLONE ACET 1% OPHTH SUSP 5ML OS (08:44)
[2018-03-15] MEDS: BRIMONIDINE 0.15% OPHTH SOLN 5 ML OU ×3 (08:45→20:17)
[2018-03-15] MEDS: BRINZOLAMIDE 1 % OPHTH SUSP (AZOPT) 10ML OU ×3 (08:45→20:17)
[2018-03-15 11:44] LABS: BEDSIDE GLUCOSE 177 MG/DL (80-115)
[2018-03-15 16:54] LABS: BEDSIDE GLUCOSE 268 MG/DL (80-115)
[2018-03-15] MEDS: AMPICILLIN SOD/SULBACTAM SOD 3 GM in D5W MINI-BAG PLUS 100 ML IV (18:24)
[2018-03-15 20:00] LABS: BEDSIDE GLUCOSE 319 MG/DL (80-115)
[2018-03-15] MEDS: ATORVASTATIN 20 MG TAB PO (20:16)
[2018-03-15] MEDS: TERAZOSIN 1 MG CAP PO (20:16)
[2018-03-15] MEDS: LATANOPROST 0.005% OPHTH SOLN 2.5 ML OD (20:17)
[2018-03-15] MEDS: LEVEMIR (INSULIN DETEMIR) 1 UNITS/0.01ML SC (21:12)
[2018-03-16] MEDS: HEPARIN SOD (PORCINE) 5000 UNITS/ML VIAL SQ ×4 (05:09→21:54)
[2018-03-16] MEDS: SODIUM CHLORIDE 0.9% INJ 10 ML SYR IV ×3 (05:10→21:54)
[2018-03-16 05:41] LABS: HEMATOCRIT 26.7 % (36.0-47.0); HEMOGLOBIN 8.4 g/dl (12.0-15.5); MEAN CORPUSCULAR HEMOGLOBIN 26.3 pg (27.0-33.0); MEAN CORPUSCULAR HGB CONC 31.5 g/dl (32.0-36.5); MEAN CORPUSCULAR VOLUME 83.7 fl (80.0-96.0); PLATELET COUNT, AUTOMATED 167 10^3/uL (150-450); RED BLOOD COUNT 3.19 10^6/uL (4.00-5.40); RED CELL DISTRIBUTION WIDTH 15.3 % (11.5-14.5); WHITE BLOOD COUNT 14.8 10^3/uL (4.0-10.0)
[2018-03-16 06:25] LABS: ANION GAP 9 MEQ/L (8-16); BLOOD UREA NITROGEN 52 MG/DL (7-18); CALCIUM LEVEL 7.8 MG/DL (8.8-10.2); CARBON DIOXIDE LEVEL 28 MEQ/L (21-32); CHLORIDE LEVEL 105 MEQ/L (98-107); CREATININE FOR GFR 3.14 MG/DL (0.55-1.30); GLOMERULAR FILTRATION RATE 15.8 (>45); GLUCOSE, FASTING 101 MG/DL (70-100); POTASSIUM SERUM 3.1 MEQ/L (3.5-5.1); SODIUM LEVEL 142 MEQ/L (136-145)
[2018-03-16] MEDS: BRIMONIDINE 0.15% OPHTH SOLN 5 ML OU ×3 (08:54→21:56)
[2018-03-16] MEDS: IRON POLYSAC (NIFEREX) 150 MG CAP PO ×2 (08:56→21:57)
[2018-03-16] MEDS: sulfaSALAzine 500 MG TABEC PO ×2 (08:56→21:55)
[2018-03-16] MEDS: FOLIC ACID 1 MG TAB PO (08:57)
[2018-03-16] MEDS: predniSONE 10 MG TAB PO (08:57)
[2018-03-16] MEDS: amLODIPine 10 MG TAB PO (08:57)
[2018-03-16] MEDS: **hydrALAZINE HCL** 25 MG TAB PO ×3 (08:57→21:56)
[2018-03-16] MEDS: TICAGRELOR 90 MG TABLET (BRILINTA) PO ×2 (08:57→21:56)
[2018-03-16] MEDS: CARVedilol 12.5 MG TAB PO ×2 (08:58→21:56)
[2018-03-16] MEDS: ASPIRIN 81 MG CHEW TABLET NG (08:58)
[2018-03-16] MEDS: PANTOPRAZOLE 40MG TAB (PROTONIX) PO (08:58)
[2018-03-16] MEDS: HumaLOG INSULIN (NovoLOG) PER UNIT SC ×4 (09:00→21:53)
[2018-03-16] MEDS: BRINZOLAMIDE 1 % OPHTH SUSP (AZOPT) 10ML OU ×3 (09:01→21:56)
[2018-03-16] MEDS: prednisoLONE ACET 1% OPHTH SUSP 5ML OS (09:01)
[2018-03-16] MEDS: TIMOLOL MALEATE 0.5% OPHTH SOLN 5 ML OU ×2 (09:02→21:57)
[2018-03-16 11:57] LABS: BEDSIDE GLUCOSE 186 MG/DL (80-115)
[2018-03-16] MEDS: POTASSIUM CHLORIDE 10 MEQ SR TABLET PO (12:30)
[2018-03-16 16:36] LABS: BEDSIDE GLUCOSE 275 MG/DL (80-115)
[2018-03-16] MEDS: AMPICILLIN SOD/SULBACTAM SOD 3 GM in D5W MINI-BAG PLUS 100 ML IV (17:18)
[2018-03-16 21:27] LABS: BEDSIDE GLUCOSE 296 MG/DL (80-115)
[2018-03-16] MEDS: LEVEMIR (INSULIN DETEMIR) 1 UNITS/0.01ML SC (21:54)
[2018-03-16] MEDS: TERAZOSIN 1 MG CAP PO (21:55)
[2018-03-16] MEDS: ATORVASTATIN 20 MG TAB PO (21:56)
[2018-03-16] MEDS: LATANOPROST 0.005% OPHTH SOLN 2.5 ML OD (21:57)
[2018-03-17] MEDS: SODIUM CHLORIDE 0.9% INJ 10 ML SYR IV ×3 (06:38→22:11)
[2018-03-17] MEDS: HEPARIN SOD (PORCINE) 5000 UNITS/ML VIAL SQ ×3 (06:38→22:09)
[2018-03-17] MEDS: **hydrALAZINE HCL** 25 MG TAB PO ×3 (06:38→22:07)
[2018-03-17 06:57] LABS: HEMOGLOBIN 8.7 g/dl (12.0-15.5); MEAN CORPUSCULAR HEMOGLOBIN 26.7 pg (27.0-33.0); MEAN CORPUSCULAR HGB CONC 31.1 g/dl (32.0-36.5); MEAN CORPUSCULAR VOLUME 85.9 fl (80.0-96.0); PLATELET COUNT, AUTOMATED 194 10^3/uL (150-450); RED BLOOD COUNT 3.26 10^6/uL (4.00-5.40); RED CELL DISTRIBUTION WIDTH 15.7 % (11.5-14.5); WHITE BLOOD COUNT 15.3 10^3/uL (4.0-10.0)
[2018-03-17 07:30] LABS: ANION GAP 12 MEQ/L (8-16); BLOOD UREA NITROGEN 58 MG/DL (7-18); CALCIUM LEVEL 8.2 MG/DL (8.8-10.2); CARBON DIOXIDE LEVEL 25 MEQ/L (21-32); CHLORIDE LEVEL 107 MEQ/L (98-107); CREATININE FOR GFR 3.43 MG/DL (0.55-1.30); GLOMERULAR FILTRATION RATE 14.2 (>45); GLUCOSE, FASTING 141 MG/DL (70-100); POTASSIUM SERUM 3.3 MEQ/L (3.5-5.1); SODIUM LEVEL 144 MEQ/L (136-145)
[2018-03-17] MEDS: sulfaSALAzine 500 MG TABEC PO ×2 (08:58→22:07)
[2018-03-17] MEDS: predniSONE 20 MG TAB PO (08:58)
[2018-03-17] MEDS: HumaLOG INSULIN (NovoLOG) PER UNIT SC ×4 (08:58→22:10)
[2018-03-17] MEDS: TICAGRELOR 90 MG TABLET (BRILINTA) PO ×2 (08:58→22:08)
[2018-03-17] MEDS: FOLIC ACID 1 MG TAB PO (08:58)
[2018-03-17] MEDS: IRON POLYSAC (NIFEREX) 150 MG CAP PO ×2 (08:58→22:07)
[2018-03-17] MEDS: PANTOPRAZOLE 40MG TAB (PROTONIX) PO (08:58)
[2018-03-17] MEDS: ASPIRIN 81 MG CHEW TABLET NG (08:58)
[2018-03-17] MEDS: prednisoLONE ACET 1% OPHTH SUSP 5ML OS ×2 (08:59→22:11)
[2018-03-17] MEDS: CARVedilol 12.5 MG TAB PO ×2 (08:59→22:09)
[2018-03-17] MEDS: amLODIPine 10 MG TAB PO (08:59)
[2018-03-17] MEDS: TIMOLOL MALEATE 0.5% OPHTH SOLN 5 ML OU ×2 (08:59→22:11)
[2018-03-17] MEDS: BRINZOLAMIDE 1 % OPHTH SUSP (AZOPT) 10ML OU ×3 (09:00→22:11)
[2018-03-17] MEDS: BRIMONIDINE 0.15% OPHTH SOLN 5 ML OU ×3 (09:00→22:20)
[2018-03-17 11:29] LABS: BEDSIDE GLUCOSE 182 MG/DL (80-115)
[2018-03-17] MEDS: POTASSIUM CHLORIDE 10 MEQ SR TABLET PO (13:14)
[2018-03-17 16:48] LABS: BEDSIDE GLUCOSE 229 MG/DL (80-115)
[2018-03-17] MEDS: AMPICILLIN SOD/SULBACTAM SOD 3 GM in D5W MINI-BAG PLUS 100 ML IV (17:31)
[2018-03-17 21:25] LABS: BEDSIDE GLUCOSE 293 MG/DL (80-115)
[2018-03-17] MEDS: ATORVASTATIN 20 MG TAB PO (22:08)
[2018-03-17] MEDS: TERAZOSIN 1 MG CAP PO (22:08)
[2018-03-17] MEDS: LEVEMIR (INSULIN DETEMIR) 1 UNITS/0.01ML SC (22:10)
[2018-03-17] MEDS: LATANOPROST 0.005% OPHTH SOLN 2.5 ML OD (22:11)
[2018-03-17] MEDS: ACETAMINOPHEN TAB 650MG DOSE (2X325MG) PO (22:50)
[2018-03-18] MEDS: HEPARIN SOD (PORCINE) 5000 UNITS/ML VIAL SQ ×3 (06:19→21:51)
[2018-03-18] MEDS: **hydrALAZINE HCL** 25 MG TAB PO ×3 (06:19→21:51)
[2018-03-18] MEDS: SODIUM CHLORIDE 0.9% INJ 10 ML SYR IV ×3 (06:20→21:52)
[2018-03-18 06:39] LABS: HEMATOCRIT 28.5 % (36.0-47.0); HEMOGLOBIN 8.6 g/dl (12.0-15.5); MEAN CORPUSCULAR HEMOGLOBIN 26.3 pg (27.0-33.0); MEAN CORPUSCULAR HGB CONC 30.2 g/dl (32.0-36.5); MEAN CORPUSCULAR VOLUME 87.2 fl (80.0-96.0); PLATELET COUNT, AUTOMATED 225 10^3/uL (150-450); RED BLOOD COUNT 3.27 10^6/uL (4.00-5.40); WHITE BLOOD COUNT 11.4 10^3/uL (4.0-10.0)
[2018-03-18 07:04] LABS: ALBUMIN 2.3 GM/DL (3.2-5.2); ANION GAP 9 MEQ/L (8-16); BLOOD UREA NITROGEN 57 MG/DL (7-18); C REACTIVE PROTEIN QUANTITATIV 3.06 MG/DL (0.00-0.30); CALCIUM LEVEL 7.9 MG/DL (8.8-10.2); CARBON DIOXIDE LEVEL 24 MEQ/L (21-32); CHLORIDE LEVEL 108 MEQ/L (98-107); CREATININE FOR GFR 3.57 MG/DL (0.55-1.30); GLOMERULAR FILTRATION RATE 13.6 (>45); GLUCOSE, FASTING 150 MG/DL (70-100); MAGNESIUM LEVEL 2.4 MG/DL (1.8-2.4); PHOSPHORUS LEVEL 3.6 MG/DL (2.5-4.9); POTASSIUM SERUM 3.2 MEQ/L (3.5-5.1); SODIUM LEVEL 141 MEQ/L (136-145)
[2018-03-18] MEDS: TICAGRELOR 90 MG TABLET (BRILINTA) PO ×2 (07:51→21:50)
[2018-03-18] MEDS: HumaLOG INSULIN (NovoLOG) PER UNIT SC ×4 (07:51→21:39)
[2018-03-18] MEDS: PANTOPRAZOLE 40MG TAB (PROTONIX) PO (07:52)
[2018-03-18] MEDS: sulfaSALAzine 500 MG TABEC PO ×2 (07:52→21:49)
[2018-03-18] MEDS: predniSONE 20 MG TAB PO (07:52)
[2018-03-18] MEDS: IRON POLYSAC (NIFEREX) 150 MG CAP PO ×2 (07:52→21:49)
[2018-03-18] MEDS: ASPIRIN 81 MG CHEW TABLET NG (07:52)
[2018-03-18] MEDS: FOLIC ACID 1 MG TAB PO (07:52)
[2018-03-18] MEDS: CARVedilol 12.5 MG TAB PO ×2 (07:53→21:50)
[2018-03-18] MEDS: amLODIPine 10 MG TAB PO (07:54)
[2018-03-18] MEDS: BRIMONIDINE 0.15% OPHTH SOLN 5 ML OU ×3 (07:54→21:52)
[2018-03-18] MEDS: TIMOLOL MALEATE 0.5% OPHTH SOLN 5 ML OU ×2 (07:54→21:52)
[2018-03-18] MEDS: prednisoLONE ACET 1% OPHTH SUSP 5ML OS (07:54)
[2018-03-18] MEDS: BRINZOLAMIDE 1 % OPHTH SUSP (AZOPT) 10ML OU ×3 (07:55→21:52)
[2018-03-18] MEDS ORDERED: HEPARIN 1,000 UNITS/ML 10ML VIAL (FOR RADIOLOGY& DIALYSIS ONLY) As Ordered (09:41)
[2018-03-18] MEDS ORDERED: LIDOCAINE 2% MDV 20 ML VIAL As Ordered (09:42)
[2018-03-18] MEDS ORDERED: fentaNYL 100 MCG/2 ML INJECTION (J3010) As Ordered (10:02)
[2018-03-18] MEDS ORDERED: MIDAZOLAM INJ 2 MG/2 ML VIAL (J2250) As Ordered (10:02)
[2018-03-18] MEDS ORDERED: ACETAMINOPHEN TAB 650MG DOSE (2X325MG) PO (10:15)
[2018-03-18 11:42] LABS: BEDSIDE GLUCOSE 218 MG/DL (80-115)
[2018-03-18] MEDS: HEPARIN 1,000 UNITS/ML 10ML VIAL (FOR RADIOLOGY& DIALYSIS ONLY) XX (12:15)
[2018-03-18] MEDS: HEPARIN 1,000 UNITS/ML 10ML VIAL (FOR RADIOLOGY& DIALYSIS ONLY) IV (12:15)
[2018-03-18] MEDS: AMPICILLIN SOD/SULBACTAM SOD 3 GM in D5W MINI-BAG PLUS 100 ML IV (18:50)
[2018-03-18] MEDS: ATORVASTATIN 20 MG TAB PO (21:49)
[2018-03-18] MEDS: TERAZOSIN 1 MG CAP PO (21:50)
[2018-03-18] MEDS: LEVEMIR (INSULIN DETEMIR) 1 UNITS/0.01ML SC (21:51)
[2018-03-18] MEDS: LATANOPROST 0.005% OPHTH SOLN 2.5 ML OD (21:52)
[2018-03-19 03:04] LABS: BEDSIDE GLUCOSE 127 MG/DL (80-115)
[2018-03-19 03:04] LABS: BEDSIDE GLUCOSE 203 MG/DL (80-115)
[2018-03-19] MEDS: **hydrALAZINE HCL** 25 MG TAB PO ×2 (05:46→14:00)
[2018-03-19] MEDS: HEPARIN SOD (PORCINE) 5000 UNITS/ML VIAL SQ ×2 (05:47→14:25)
[2018-03-19] MEDS: ASPIRIN 81 MG CHEW TABLET NG (08:41)
[2018-03-19] MEDS: CARVedilol 12.5 MG TAB PO (08:41)
[2018-03-19] MEDS: TICAGRELOR 90 MG TABLET (BRILINTA) PO (08:41)
[2018-03-19] MEDS: predniSONE 10 MG TAB PO (08:41)
[2018-03-19] MEDS: FOLIC ACID 1 MG TAB PO (08:42)
[2018-03-19] MEDS: sulfaSALAzine 500 MG TABEC PO (08:42)
[2018-03-19] MEDS: amLODIPine 10 MG TAB PO (08:42)
[2018-03-19] MEDS: PANTOPRAZOLE 40MG TAB (PROTONIX) PO (08:42)
[2018-03-19] MEDS: TIMOLOL MALEATE 0.5% OPHTH SOLN 5 ML OU (08:42)
[2018-03-19] MEDS: BRINZOLAMIDE 1 % OPHTH SUSP (AZOPT) 10ML OU (08:42)
[2018-03-19] MEDS: prednisoLONE ACET 1% OPHTH SUSP 5ML OS (08:43)
[2018-03-19] MEDS: BRIMONIDINE 0.15% OPHTH SOLN 5 ML OU (08:43)
[2018-03-19] MEDS: HumaLOG INSULIN (NovoLOG) PER UNIT SC ×2 (08:44→13:38)
[2018-03-19] MEDS: IRON POLYSAC (NIFEREX) 150 MG CAP PO (08:45)
[2018-03-19] MEDS ORDERED: ISOVUE-300 61% 50ML VIAL (Q9967) As Ordered (11:25)
[2018-03-19] MEDS ORDERED: LIDOCAINE 2% MDV 20 ML VIAL As Ordered (11:25)
[2018-03-19] MEDS ORDERED: fentaNYL 100 MCG/2 ML INJECTION (J3010) As Ordered (11:57)
[2018-03-19] MEDS ORDERED: MIDAZOLAM INJ 2 MG/2 ML VIAL (J2250) As Ordered (11:58)
[2018-03-19 13:24] LABS: HEMATOCRIT 29.8 % (36.0-47.0); HEMOGLOBIN 9.2 g/dl (12.0-15.5); MEAN CORPUSCULAR HEMOGLOBIN 26.9 pg (27.0-33.0); MEAN CORPUSCULAR HGB CONC 30.9 g/dl (32.0-36.5); MEAN CORPUSCULAR VOLUME 87.1 fl (80.0-96.0); PLATELET COUNT, AUTOMATED 254 10^3/uL (150-450); RED BLOOD COUNT 3.42 10^6/uL (4.00-5.40); RED CELL DISTRIBUTION WIDTH 17.5 % (11.5-14.5); WHITE BLOOD COUNT 13.6 10^3/uL (4.0-10.0)
[2018-03-19 13:57] LABS: ALBUMIN 2.6 GM/DL (3.2-5.2); ANION GAP 12 MEQ/L (8-16); BLOOD UREA NITROGEN 24 MG/DL (7-18); C REACTIVE PROTEIN QUANTITATIV 3.43 MG/DL (0.00-0.30); CALCIUM LEVEL 8.9 MG/DL (8.8-10.2); CARBON DIOXIDE LEVEL 26 MEQ/L (21-32); CHLORIDE LEVEL 104 MEQ/L (98-107); CREATININE FOR GFR 2.65 MG/DL (0.55-1.30); GLOMERULAR FILTRATION RATE 19.2 (>45); GLUCOSE, FASTING 169 MG/DL (70-100); MAGNESIUM LEVEL 2.2 MG/DL (1.8-2.4); PHOSPHORUS LEVEL 2.9 MG/DL (2.5-4.9); POTASSIUM SERUM 3.9 MEQ/L (3.5-5.1); SODIUM LEVEL 142 MEQ/L (136-145)
[2018-03-19 14:19] LABS: ERYTHROCYTE SEDIMENTATION RATE 71 mm/hr (0-30)
[2018-03-19] MEDS: FLUBLOK(EGG FREE)(QUAD)INFLUENZA VACC 0.5ML SYRINGE (90682)18YRS&OLDER IM (14:26)
[2018-03-20 12:01] LABS: BEDSIDE GLUCOSE 171 MG/DL (80-115)
[2018-03-20 12:01] LABS: BEDSIDE GLUCOSE 129 MG/DL (80-115)
[2018-03-21] MEDS ORDERED: predniSONE 5 MG TAB PO (09:00)
== END 2018-03-19 15:10 | disposition home or self-care (01) | DRG 981 ==
LOC: M MSPAV 03-14 15:22 → M ED 02:13 → M ED INP 05:51 → M ICU 06:30
PROC: 0JH60WZ Insertion of Totally Implantable Vascular Access Device into Chest Subcutaneous Tissue and Fascia, Open Approach (ICD-10-PCS; principal; 2018-03-10)
PROC: 5A1945Z Respiratory Ventilation, 24-96 Consecutive Hours (ICD-10-PCS; 2018-03-10)
PROC: 0JH60XZ Insertion of Tunneled Vascular Access Device into Chest Subcutaneous Tissue and Fascia, Open Approach (ICD-10-PCS; 2018-03-10)
PROC: 0JH63XZ Insertion of Tunneled Vascular Access Device into Chest Subcutaneous Tissue and Fascia, Percutaneous Approach (ICD-10-PCS; 2018-03-10)
PROC: 30233N1 Transfusion of Nonautologous Red Blood Cells into Peripheral Vein, Percutaneous Approach (ICD-10-PCS; 2018-03-11)
DX: J96.01 Acute respiratory failure with hypoxia (principal); J69.0 Pneumonitis due to inhalation of food and vomit; N18.6 End stage renal disease; N17.9 Acute kidney failure, unspecified; I16.1 Hypertensive emergency; E46 Unspecified protein-calorie malnutrition; E87.79 Other fluid overload; K21.9 Gastro-esophageal reflux disease without esophagitis; E78.5 Hyperlipidemia, unspecified; E11.9 Type 2 diabetes mellitus without complications; M06.9 Rheumatoid arthritis, unspecified; I25.10 Atherosclerotic heart disease of native coronary artery without angina pectoris; Z95.2 Presence of prosthetic heart valve; Z79.82 Long term (current) use of aspirin; Z79.4 Long term (current) use of insulin; Z79.899 Other long term (current) drug therapy; I25.2 Old myocardial infarction; Z79.52 Long term (current) use of systemic steroids; D63.1 Anemia in chronic kidney disease; D50.9 Iron deficiency anemia, unspecified; E87.6 Hypokalemia; I15.0 Renovascular hypertension; M79.81 Nontraumatic hematoma of soft tissue

== ENCOUNTER 2018-03-19 15:32 | Inpatient (IN) | payer MEDICARE ==
[2018-03-19] MEDS ORDERED: NITROGLYCERIN 0.4 MG SUBL TABLET SL (17:00)
[2018-03-19] MEDS: AMPICILLIN SOD/SULBACTAM SOD 3 GM in D5W MINI-BAG PLUS 100 ML IV (18:12)
[2018-03-19 20:20] LABS: BEDSIDE GLUCOSE 220 MG/DL (80-115)
[2018-03-19] MEDS: LEVEMIR (INSULIN DETEMIR) 1 UNITS/0.01ML SC (21:13)
[2018-03-19] MEDS: TICAGRELOR 90 MG TABLET (BRILINTA) PO (21:13)
[2018-03-19] MEDS: sulfaSALAzine 500 MG TABEC PO (21:13)
[2018-03-19] MEDS: HEPARIN SOD (PORCINE) 5000 UNITS/ML VIAL SQ (21:14)
[2018-03-19] MEDS: **hydrALAZINE HCL** 25 MG TAB PO (21:15)
[2018-03-19] MEDS: BRINZOLAMIDE 1 % OPHTH SUSP (AZOPT) 10ML OU (21:15)
[2018-03-19] MEDS: BRIMONIDINE 0.1% OPHTH SOLN 5 ML OU (21:16)
[2018-03-19] MEDS: TIMOLOL XE GFS 0.5% OPHTH 5 ML OU (21:16)
[2018-03-19] MEDS: TERAZOSIN 1 MG CAP PO (21:17)
[2018-03-19] MEDS: ATORVASTATIN 20 MG TAB PO (21:17)
[2018-03-20 06:03] LABS: BEDSIDE GLUCOSE 78 MG/DL (80-115)
[2018-03-20] MEDS: **hydrALAZINE HCL** 25 MG TAB PO ×3 (06:11→21:48)
[2018-03-20] MEDS: HEPARIN SOD (PORCINE) 5000 UNITS/ML VIAL SQ ×3 (06:12→21:48)
[2018-03-20] MEDS ORDERED: AMPICILLIN SOD/SULBACTAM SOD 3 GM in D5W MINI-BAG PLUS 100 ML IV (06:15)
[2018-03-20 07:23] LABS: HEMATOCRIT 30.3 % (36.0-47.0); HEMOGLOBIN 9.4 g/dl (12.0-15.5); MEAN CORPUSCULAR HEMOGLOBIN 27.1 pg (27.0-33.0); MEAN CORPUSCULAR VOLUME 87.3 fl (80.0-96.0); PLATELET COUNT, AUTOMATED 246 10^3/uL (150-450); RED BLOOD COUNT 3.47 10^6/uL (4.00-5.40); RED CELL DISTRIBUTION WIDTH 18.2 % (11.5-14.5); WHITE BLOOD COUNT 11.2 10^3/uL (4.0-10.0)
[2018-03-20 07:24] LABS: POS COUNT POS FLAG; POSITIVE MORPH POS FLAG
[2018-03-20 07:25] LABS: ADD MANUAL DIFFER YES; DIFF SLIDE NUMBER 76
[2018-03-20 07:58] LABS: BANDS 2 % (< 11); EOSINOPHILS 2 % (0-5); LYMPHOCYTES 13 % (16-52); METAMYELOCYTES 2 % (0-0); MONOCYTES 5 % (0-8); MYELOCYTES 3 % (0-0); NEUTROPHILS 73 % (35-75)
[2018-03-20 07:59] LABS: ANISOCYTOSIS 1+; MICROCYTOSIS 1+; POLYCHROMASIA 1+
[2018-03-20 08:00] LABS: PLATELET ESTIMATE NORMAL (NORMAL)
[2018-03-20 08:03] LABS: ALBUMIN 2.4 GM/DL (3.2-5.2); ALBUMIN/GLOBULIN RATIO 0.67 (1.00-1.93); ALKALINE PHOSPHATASE 45 U/L (45-117); ALT/SGPT 14 U/L (12-78); ANION GAP 10 MEQ/L (8-16); AST/SGOT 17 U/L (7-37); BILIRUBIN,TOTAL 0.6 MG/DL (0.2-1.0); BLOOD UREA NITROGEN 27 MG/DL (7-18); CALCIUM LEVEL 8.5 MG/DL (8.8-10.2); CARBON DIOXIDE LEVEL 27 MEQ/L (21-32); CHLORIDE LEVEL 108 MEQ/L (98-107); CREATININE FOR GFR 3.09 MG/DL (0.55-1.30); GLOMERULAR FILTRATION RATE 16.1 (>45); GLUCOSE, FASTING 79 MG/DL (70-100); POTASSIUM SERUM 3.3 MEQ/L (3.5-5.1); SODIUM LEVEL 145 MEQ/L (136-145)
[2018-03-20] MEDS: predniSONE 5 MG TAB PO (08:50)
[2018-03-20] MEDS: ASPIRIN 81 MG CHEW TABLET GT (08:50)
[2018-03-20] MEDS: FOLIC ACID 1 MG TAB PO (08:51)
[2018-03-20] MEDS: amLODIPine 10 MG TAB PO (08:51)
[2018-03-20] MEDS: sulfaSALAzine 500 MG TABEC PO ×2 (08:51→21:49)
[2018-03-20] MEDS: PANTOPRAZOLE 40MG TAB (PROTONIX) PO (08:51)
[2018-03-20] MEDS: TICAGRELOR 90 MG TABLET (BRILINTA) PO ×2 (08:52→21:50)
[2018-03-20] MEDS: BRIMONIDINE 0.1% OPHTH SOLN 5 ML OU ×3 (08:53→21:50)
[2018-03-20] MEDS: TIMOLOL XE GFS 0.5% OPHTH 5 ML OU ×2 (08:54→21:50)
[2018-03-20] MEDS: BRINZOLAMIDE 1 % OPHTH SUSP (AZOPT) 10ML OU ×3 (08:55→21:50)
[2018-03-20] MEDS: prednisoLONE ACET 1% OPHTH SUSP 5ML OS (08:55)
[2018-03-20] MEDS ORDERED: predniSONE 10 MG TAB PO (09:00)
[2018-03-20 09:24] LABS: C REACTIVE PROTEIN QUANTITATIV 3.59 MG/DL (0.00-0.30)
[2018-03-20] MEDS: CARVedilol 12.5 MG TAB PO ×2 (10:00→21:00)
[2018-03-20] MEDS ORDERED: DARBEPOETIN 100 MCG/0.5 ML *DIALYSIS* SYRINGE (J0882) IV (11:00)
[2018-03-20] MEDS: POTASSIUM CHLORIDE 10 MEQ SR TABLET PO (11:04)
[2018-03-20 12:35] LABS: BEDSIDE GLUCOSE 299 MG/DL (80-115)
[2018-03-20 16:47] LABS: BEDSIDE GLUCOSE 265 MG/DL (80-115)
[2018-03-20] MEDS: AMPICILLIN SOD/SULBACTAM SOD 3 GM in D5W MINI-BAG PLUS 100 ML IV (17:31)
[2018-03-20 19:42] LABS: BEDSIDE GLUCOSE 310 MG/DL (80-115)
[2018-03-20 21:47] LABS: APPEARANCE, URINE HAZY (CLEAR); BACTERIA, URINE AUTO NEGATIVE (NEGATIVE); BILIRUBIN, URINE AUTO NEGATIVE (NEGATIVE); BLOOD, URINE BLOOD NEGATIVE (NEGATIVE); COLOR, URINE YELLOW (YELLOW); GLUCOSE, URINE (UA) AUTO 3+ mg/dL (NEGATIVE); KETONE, URINE AUTO TRACE mg/dL (NEGATIVE); LEUKOCYTE ESTERASE, URINE AUTO TRACE (NEGATIVE); NITRITE, URINE AUTO NEGATIVE (NEGATIVE); PROTEIN, URINE AUTO 2+ mg/dL (NEGATIVE); RBC, URINE AUTO 3 /HPF (0-3); SPECIFIC GRAVITY URINE AUTO 1.018 (1.002-1.035); SQUAMOUS EPITHELIAL CELL UR AU 6 /HPF (0-6); UROBILINOGEN, URINE AUTO 0.2 mg/dL (0.0-2.0); WBC, URINE AUTO 6 /HPF (0-3); YEAST LIKE CELL URINE AUTO LARGE
[2018-03-20] MEDS: ATORVASTATIN 20 MG TAB PO (21:48)
[2018-03-20] MEDS: ACETAMINOPHEN TAB 650MG DOSE (2X325MG) PO (21:48)
[2018-03-20] MEDS: TERAZOSIN 1 MG CAP PO (21:49)
[2018-03-20] MEDS: LEVEMIR (INSULIN DETEMIR) 1 UNITS/0.01ML SC (21:49)
[2018-03-21 05:48] LABS: BEDSIDE GLUCOSE 150 MG/DL (80-115)
[2018-03-21] MEDS: **hydrALAZINE HCL** 25 MG TAB PO ×3 (06:13→21:10)
[2018-03-21] MEDS: HEPARIN SOD (PORCINE) 5000 UNITS/ML VIAL SQ ×3 (06:13→21:10)
[2018-03-21] MEDS: ASPIRIN 81 MG CHEW TABLET GT (06:14)
[2018-03-21] MEDS: TICAGRELOR 90 MG TABLET (BRILINTA) PO ×2 (06:14→21:10)
[2018-03-21] MEDS: sulfaSALAzine 500 MG TABEC PO ×2 (06:14→21:11)
[2018-03-21] MEDS: ACETAMINOPHEN TAB 650MG DOSE (2X325MG) PO ×2 (06:14→21:09)
[2018-03-21] MEDS: predniSONE 5 MG TAB PO (06:14)
[2018-03-21] MEDS: PANTOPRAZOLE 40MG TAB (PROTONIX) PO (06:15)
[2018-03-21] MEDS: FOLIC ACID 1 MG TAB PO (06:15)
[2018-03-21 07:10] LABS: HEMATOCRIT 28.1 % (36.0-47.0); HEMOGLOBIN 8.7 g/dl (12.0-15.5); MEAN CORPUSCULAR HEMOGLOBIN 27.2 pg (27.0-33.0); MEAN CORPUSCULAR VOLUME 87.8 fl (80.0-96.0); PLATELET COUNT, AUTOMATED 236 10^3/uL (150-450); RED CELL DISTRIBUTION WIDTH 18.5 % (11.5-14.5)
[2018-03-21 07:12] LABS: ADD MANUAL DIFFER YES; DIFF SLIDE NUMBER 49; POS COUNT POS FLAG; POSITIVE MORPH POS FLAG
[2018-03-21 07:40] LABS: ANION GAP 12 MEQ/L (8-16); BLOOD UREA NITROGEN 29 MG/DL (7-18); CARBON DIOXIDE LEVEL 24 MEQ/L (21-32); CHLORIDE LEVEL 108 MEQ/L (98-107); CREATININE FOR GFR 3.47 MG/DL (0.55-1.30); GLOMERULAR FILTRATION RATE 14.1 (>45); GLUCOSE, FASTING 149 MG/DL (70-100); POTASSIUM SERUM 3.9 MEQ/L (3.5-5.1); SODIUM LEVEL 144 MEQ/L (136-145)
[2018-03-21 07:50] LABS: ATYPICAL LYMPH 1 % (0-5); BANDS 1 % (< 11); BASOPHILS 1 % (0-4); EOSINOPHILS 1 % (0-5); LYMPHOCYTES 22 % (16-52); METAMYELOCYTES 2 % (0-0); MONOCYTES 6 % (0-8); MYELOCYTES 1 % (0-0); NEUTROPHILS 65 % (35-75); PLATELET ESTIMATE NORMAL (NORMAL)
[2018-03-21 07:51] LABS: ANISOCYTOSIS 2+; POLYCHROMASIA 1+
[2018-03-21 07:52] LABS: HYPOCHROMASIA 1+; OVALOCYTES 1+
[2018-03-21] MEDS ORDERED: IRON SUCROSE 100MG 5ML VIAL (J1756 PER 1MG) IV (08:00)
[2018-03-21] MEDS: CARVedilol 12.5 MG TAB PO ×2 (08:52→21:00)
[2018-03-21] MEDS: amLODIPine 10 MG TAB PO (08:52)
[2018-03-21] MEDS: prednisoLONE ACET 1% OPHTH SUSP 5ML OS (08:53)
[2018-03-21] MEDS: TIMOLOL XE GFS 0.5% OPHTH 5 ML OU ×2 (08:53→21:11)
[2018-03-21] MEDS: BRINZOLAMIDE 1 % OPHTH SUSP (AZOPT) 10ML OU ×3 (08:54→21:11)
[2018-03-21] MEDS: BRIMONIDINE 0.1% OPHTH SOLN 5 ML OU ×3 (08:54→21:11)
[2018-03-21 11:27] LABS: BEDSIDE GLUCOSE 275 MG/DL (80-115)
[2018-03-21] MEDS: HEPARIN 1,000 UNITS/ML 10ML VIAL (FOR RADIOLOGY& DIALYSIS ONLY) XX (13:00)
[2018-03-21] MEDS: HEPARIN 1,000 UNITS/ML 10ML VIAL (FOR RADIOLOGY& DIALYSIS ONLY) IV (13:00)
[2018-03-21 16:24] LABS: BEDSIDE GLUCOSE 156 MG/DL (80-115)
[2018-03-21 20:34] LABS: BEDSIDE GLUCOSE 163 MG/DL (80-115)
[2018-03-21] MEDS: ATORVASTATIN 20 MG TAB PO (21:10)
[2018-03-21] MEDS: TERAZOSIN 1 MG CAP PO (21:11)
[2018-03-21] MEDS: LEVEMIR (INSULIN DETEMIR) 1 UNITS/0.01ML SC (21:11)
[2018-03-22 06:17] LABS: BEDSIDE GLUCOSE 108 MG/DL (80-115)
[2018-03-22] MEDS: HEPARIN SOD (PORCINE) 5000 UNITS/ML VIAL SQ ×3 (06:26→21:40)
[2018-03-22] MEDS: **hydrALAZINE HCL** 25 MG TAB PO ×3 (06:27→22:00)
[2018-03-22] MEDS: ASPIRIN 81 MG CHEW TABLET GT (08:43)
[2018-03-22] MEDS: amLODIPine 10 MG TAB PO (08:43)
[2018-03-22] MEDS: sulfaSALAzine 500 MG TABEC PO ×2 (08:43→21:37)
[2018-03-22] MEDS: TICAGRELOR 90 MG TABLET (BRILINTA) PO ×2 (08:44→21:38)
[2018-03-22] MEDS: CARVedilol 12.5 MG TAB PO ×2 (08:44→21:38)
[2018-03-22] MEDS: FOLIC ACID 1 MG TAB PO (08:44)
[2018-03-22] MEDS: predniSONE 5 MG TAB PO (08:44)
[2018-03-22] MEDS: BRINZOLAMIDE 1 % OPHTH SUSP (AZOPT) 10ML OU ×3 (08:44→21:41)
[2018-03-22] MEDS: PANTOPRAZOLE 40MG TAB (PROTONIX) PO (08:44)
[2018-03-22] MEDS: TIMOLOL XE GFS 0.5% OPHTH 5 ML OU ×2 (08:45→21:42)
[2018-03-22] MEDS: prednisoLONE ACET 1% OPHTH SUSP 5ML OS (08:45)
[2018-03-22] MEDS: BRIMONIDINE 0.1% OPHTH SOLN 5 ML OU ×3 (08:45→21:41)
[2018-03-22 11:33] LABS: BEDSIDE GLUCOSE 253 MG/DL (80-115)
[2018-03-22 16:37] LABS: BEDSIDE GLUCOSE 195 MG/DL (80-115)
[2018-03-22 19:31] LABS: BEDSIDE GLUCOSE 181 MG/DL (80-115)
[2018-03-22] MEDS: TERAZOSIN 1 MG CAP PO (21:37)
[2018-03-22] MEDS: ATORVASTATIN 20 MG TAB PO (21:38)
[2018-03-22] MEDS: LEVEMIR (INSULIN DETEMIR) 1 UNITS/0.01ML SC (21:38)
[2018-03-23] MEDS: HEPARIN SOD (PORCINE) 5000 UNITS/ML VIAL SQ ×3 (05:58→21:11)
[2018-03-23] MEDS: **hydrALAZINE HCL** 25 MG TAB PO ×3 (05:58→22:17)
[2018-03-23 06:50] LABS: BEDSIDE GLUCOSE 95 MG/DL (80-115)
[2018-03-23] MEDS: BRINZOLAMIDE 1 % OPHTH SUSP (AZOPT) 10ML OU ×3 (08:35→21:14)
[2018-03-23] MEDS: ASPIRIN 81 MG CHEW TABLET GT (08:37)
[2018-03-23] MEDS: sulfaSALAzine 500 MG TABEC PO ×2 (08:37→21:13)
[2018-03-23] MEDS: PANTOPRAZOLE 40MG TAB (PROTONIX) PO (08:37)
[2018-03-23] MEDS: FOLIC ACID 1 MG TAB PO (08:39)
[2018-03-23] MEDS: CARVedilol 12.5 MG TAB PO ×2 (08:39→21:12)
[2018-03-23] MEDS: predniSONE 5 MG TAB PO (08:39)
[2018-03-23] MEDS: amLODIPine 10 MG TAB PO (08:39)
[2018-03-23] MEDS: BRIMONIDINE 0.1% OPHTH SOLN 5 ML OU ×3 (08:40→21:13)
[2018-03-23] MEDS: TICAGRELOR 90 MG TABLET (BRILINTA) PO ×2 (08:40→21:12)
[2018-03-23] MEDS: prednisoLONE ACET 1% OPHTH SUSP 5ML OS (08:42)
[2018-03-23] MEDS: TIMOLOL XE GFS 0.5% OPHTH 5 ML OU ×2 (08:42→21:14)
[2018-03-23 11:33] LABS: BEDSIDE GLUCOSE 252 MG/DL (80-115)
[2018-03-23 16:31] LABS: BEDSIDE GLUCOSE 253 MG/DL (80-115)
[2018-03-23 19:47] LABS: BEDSIDE GLUCOSE 210 MG/DL (80-115)
[2018-03-23] MEDS: LEVEMIR (INSULIN DETEMIR) 1 UNITS/0.01ML SC (21:11)
[2018-03-23] MEDS: ATORVASTATIN 20 MG TAB PO (21:12)
[2018-03-23] MEDS: TERAZOSIN 1 MG CAP PO (21:13)
[2018-03-24] MEDS: HEPARIN SOD (PORCINE) 5000 UNITS/ML VIAL SQ (05:42)
[2018-03-24] MEDS: **hydrALAZINE HCL** 25 MG TAB PO (05:42)
[2018-03-24 06:25] LABS: BEDSIDE GLUCOSE 125 MG/DL (80-115)
[2018-03-24] MEDS: predniSONE 5 MG TAB PO (08:34)
[2018-03-24] MEDS: sulfaSALAzine 500 MG TABEC PO (08:34)
[2018-03-24] MEDS: ASPIRIN 81 MG CHEW TABLET GT (08:34)
[2018-03-24] MEDS: PANTOPRAZOLE 40MG TAB (PROTONIX) PO (08:34)
[2018-03-24] MEDS: FOLIC ACID 1 MG TAB PO (08:34)
[2018-03-24] MEDS: amLODIPine 10 MG TAB PO (08:34)
[2018-03-24] MEDS: BRINZOLAMIDE 1 % OPHTH SUSP (AZOPT) 10ML OU (08:35)
[2018-03-24] MEDS: CARVedilol 12.5 MG TAB PO (08:35)
[2018-03-24] MEDS: prednisoLONE ACET 1% OPHTH SUSP 5ML OS (08:35)
[2018-03-24] MEDS: BRIMONIDINE 0.1% OPHTH SOLN 5 ML OU (08:36)
[2018-03-24] MEDS: TIMOLOL XE GFS 0.5% OPHTH 5 ML OU (08:36)
[2018-03-24] MEDS: TICAGRELOR 90 MG TABLET (BRILINTA) PO (08:41)
[2018-03-24 11:26] LABS: BEDSIDE GLUCOSE 244 MG/DL (80-115)
== END 2018-03-24 13:40 | disposition home or self-care (01) | DRG 947 ==
LOC: M PM&R 15:32
PROVIDERS: Physical Medicine & Rehabilitation
PROC: 5A1D70Z Performance of Urinary Filtration, Intermittent, Less than 6 Hours Per Day (ICD-10-PCS; principal; 2018-03-21)
DX: R53.81 Other malaise (principal); N18.6 End stage renal disease; I12.0 Hypertensive chronic kidney disease with stage 5 chronic kidney disease or end stage renal disease; E46 Unspecified protein-calorie malnutrition; I25.10 Atherosclerotic heart disease of native coronary artery without angina pectoris; E11.22 Type 2 diabetes mellitus with diabetic chronic kidney disease; K21.9 Gastro-esophageal reflux disease without esophagitis; H02.402 Unspecified ptosis of left eyelid; M06.9 Rheumatoid arthritis, unspecified; D50.9 Iron deficiency anemia, unspecified; E87.6 Hypokalemia; H40.9 Unspecified glaucoma; M70.42 Prepatellar bursitis, left knee; E78.5 Hyperlipidemia, unspecified; D63.1 Anemia in chronic kidney disease; Z99.2 Dependence on renal dialysis; Z95.828 Presence of other vascular implants and grafts; Z79.02 Long term (current) use of antithrombotics/antiplatelets; Z79.82 Long term (current) use of aspirin; Z79.4 Long term (current) use of insulin; Z79.52 Long term (current) use of systemic steroids; Z79.899 Other long term (current) drug therapy; Z68.22 Body mass index [BMI] 22.0-22.9, adult

== ENCOUNTER → 2018-04-21 | Outpatient (CLI) | payer MEDICARE ==
[~2018-04-21] MED LIST changes: -AMLO10TA2 PO; -ASPI81TA13 PO; -AZOP0.2S OU; -AZUL500T3 PO; -BIMA01SOL OD; -BISO5TAB5 PO; -COMB0.2S OU; -DOXA1TAB41 PO; -DRIS50002 PO; -FENO145T PO; -FOLI1TAB2 PO; -HUMU70IN SC; +ISOVUE-300 61% 50ML VIAL (Q9967) As Ordered; +LIDOCAINE 2% MDV 20 ML VIAL As Ordered; -METH2.5TA PO; +MIDAZOLAM INJ 2 MG/2 ML VIAL (J2250) As Ordered; -MULTCAP PO; -PRED1SUS OS; -PRED5TA PO; -QUIN40TA5 PO; -SPIR50TA2 PO; -SULF500T2 PO; -VITA1CAP25 PO; +fentaNYL 100 MCG/2 ML INJECTION (J3010) As Ordered
== END | disposition home or self-care (01) ==
LOC: M IRPRO 06:11
DX: T82.590A Other mechanical complication of surgically created arteriovenous fistula, initial encounter (principal); N18.6 End stage renal disease; Z99.2 Dependence on renal dialysis
CPT/HCPCS: 36901

== ENCOUNTER → 2018-07-09 | Outpatient (CLI) | payer MEDICARE ==
[~2018-07-09] MED LIST changes: +AMLO10TA5 PO; +ASPI81TA24 PO; +ATOR1TAB21 PO; +AZOP0.2S OU; +AZUL500T3 PO; +BIMA01SOL OD; +BIRLINTA; +BISO5TAB5 PO; +BRIL90TA PO; +BRIM0.2S13 OU; +CARV12.5 PO; +COMB0.2S OU; +DOXA1TAB41 PO; +DRIS50003 PO; +FENO145T13 PO; +FOLI1TAB11 PO; +HUMU70IN SC; +HYDR25TA PO; +INSUDET SC; +INSULANT SC; +INSURSDRX SC; +ISOS60TA2 PO; -ISOVUE-300 61% 50ML VIAL (Q9967) As Ordered; +ISOVUE-300 61% 50ML VIAL (Q9967) As Ordered ONE; +KLOR20TA42 PO; -LIDOCAINE 2% MDV 20 ML VIAL As Ordered; +LIDOCAINE 2% MDV 20 ML VIAL As Ordered ONE; +METH2.5T48 PO; -MIDAZOLAM INJ 2 MG/2 ML VIAL (J2250) As Ordered; +MULTCAP PO; +NITR4TASL SL; +PANT40TA3 PO; +PRED1SUS2 OS; +PRED5TA PO; +QUIN1TAB4 PO; +SPIR50TA4 PO; +SULF500T2 PO; +TERA2CAP3 PO; +TIMO0.5S29 OU; +TORS20TA2 PO; +VITA1CAP25 PO; -fentaNYL 100 MCG/2 ML INJECTION (J3010) As Ordered
--- NOTE | 2018-07-22 11:59 | REPIR ---
DATE OF PROCEDURE: 07/09/2018 ATTENDING SURGEON: Dr. Tessa See PREOPERATIVE DIAGNOSIS: End-stage renal disease, dysfunctional left basilic vein transposition arteriovenous fistula. POSTOPERATIVE DIAGNOSIS: End-stage renal disease, dysfunctional left basilic vein transposition arteriovenous fistula. PROCEDURE: Left basilic vein transposition arteriovenous fistulogram, selective left brachial artery catheter placement with angiogram and runoff. INDICATION: The patient is a 67-year-old female with a left basilic vein transposition arteriovenous fistula which has been unable to be used to to difficulty with cannulation. The patient undergo a fistulogram with possible angioplasty stent and/or atherectomy. Risks, benefits, alternative options were discussed with the patient. ANESTHESIA: was local with 2 mL of 2% lidocaine. FLUORO TIME: 0.1 minutes. CONTRAST: 2 mL. HEPARIN: None. COMPLICATIONS: None. DRAINS: None. SPECIMENS: None. IMPLANTS: None. PROCEDURE: The patient was taken to the angiography suite, placed on the angiography room table and then prepped and draped in a standard surgical fashion. The left basilic vein transposition arteriovenous fistula was cannulated with a micropuncture needle after anesthetizing the overlying skin with 2% lidocaine. A micropuncture wire was advanced to the micropuncture needle which was upsized to a micropuncture sheath which was advanced into the brachial artery and angiogram with runoff was performed showing the basilic vein to be widely patent but overlying directly over the brachial artery making cannulation difficult. The sheath was removed and manual compression applied at the puncture site for hemostasis. Dressings were then applied. The patient tolerated the procedure well. All instruments, sponge, and needle counts were correct at the end the case. There were no complications. Dr. See was present for directed the entire case. The patient was transferred to the holding area and subsequent discharged in stable condition. The patient will require surgical revision with translocation of the basilic vein to a more lateral position to be used for hemodialysis access.
== END | disposition home or self-care (01) ==
LOC: M IRPRO 06:46
PROVIDERS: ATTEND Surgery Vascular Surgery
DX: T82.590A Other mechanical complication of surgically created arteriovenous fistula, initial encounter (principal); N18.6 End stage renal disease; Z99.2 Dependence on renal dialysis
CPT/HCPCS: 36901; C1894; Q9967

== ENCOUNTER → 2018-07-30 | Outpatient (CLI) | payer OTHER ==
[~2018-07-30] MED LIST changes: -ISOVUE-300 61% 50ML VIAL (Q9967) As Ordered ONE; -LIDOCAINE 2% MDV 20 ML VIAL As Ordered ONE
--- NOTE | 2018-07-30 20:00 | REP ---
Clinical: Potential renal transplant recipient. Technique: Axial noncontrast images from the lung bases to the pubic symphysis with coronal and sagittal re-formations. Findings: Extensive atherosclerotic changes are noted involving the aorta as well as major branch vessels throughout the abdomen and pelvis. Specifically, the bilateral external iliac arteries demonstrate diffuse and essentially complete circumferential calcified atheromatous changes from their origins to the level of the common femoral arteries. A network of collateral vessels are also identified extending from the left upper quadrant along the left flank into the pelvis. Liver and spleen demonstrate small parenchymal calcifications suggesting prior granulomatous disease. Pancreas, gallbladder, bilateral adrenal glands are relatively normal for noncontrast evaluation. The kidneys demonstrate mild atrophic changes (left greater than right) along with subtle right renal lower pole hypodensity which may reflect cyst and extensive bilateral renovascular calcifications. Evaluation of the enteric system is without obstruction or acute inflammatory process. Pelvis demonstrates partially collapsed normal bladder and enlarged myomatous uterus with innumerable calcified and noncalcified fibroids. No ascites. No free air. No significant intraperitoneal or retroperitoneal adenopathy. Subcentimeter fat containing periumbilical hernia is identified. Musculoskeletal structures demonstrate age-related degenerative changes without focal osseous abnormality. Lung bases demonstrate mild fibroatelectatic changes primarily involving the right middle lobe and lingula. Extensive atherosclerotic changes noted involving the visualized coronary arteries. Impression: 1. Extensive and significantly calcified atheromatous plaquing throughout the abdomen and pelvis and specifically completely involving the bilateral external carotid arteries from their origins to the common femoral arteries. 2. Enlarged uterus with innumerable calcified and noncalcified leiomyomas. The Electronically Signed by Imtiaz Ramirez MD 07/30/2018 07:51 P
== END ==
LOC: M RAD 08:47
PROVIDERS: ATTEND Transplant Surgery
DX: Z01.818 Encounter for other preprocedural examination (principal); D25.9 Leiomyoma of uterus, unspecified; I65.23 Occlusion and stenosis of bilateral carotid arteries

== ENCOUNTER → 2018-08-13 | Outpatient (CLI) | payer OTHER ==
[~2018-08-13] MED LIST changes: -BIMA01SOL OD; +BIMA01SOL OU; +CARV3.12 PO; +ISOVUE-370 76% 125ML VIAL (Q9967 PER ML) As Ordered ONE; +LANTINJ4 SC; -PRED1SUS2 OS; +PRED1SUS2 OU; +RENATAB5 PO
--- NOTE | 2018-08-14 17:08 | REP ---
Clinical: Pre evaluation for renal transplant. Technique: Contrast enhanced CT of the abdomen and pelvis using abdominal angiographic technique for evaluation of arterial vascular disease. Images obtained in maximal arterial enhancement using 100 ml Isovue 370 intravenous contrast material multiplanar re-formations and MIP images. Comparison: Noncontrast CT of the abdomen dated 07/30/2018. Findings: Appropriate arterial enhancement is appreciated and while extensive calcified atherosclerotic changes are noted throughout the aorta and branch vessels including bilateral renal arteries and bilateral iliac arteries, the bilateral iliac vessels demonstrate appropriate, symmetric size and enhancement without evidence for stenosis or occlusion. No evidence for aneurysm or dissection. Hepatic and splenic calcifications consistent with prior granulomas disease. Pancreas, gallbladder, and bilateral adrenal glands appear normal. The kidneys demonstrate chronic atrophic changes. There is a complex low density lesion at the superior pole of the right kidney which cannot be classified as simple cyst. The enteric system is without obstruction or acute inflammatory process. Colonic diverticulosis noted without acute diverticulitis. Pelvis demonstrates partially collapsed bladder and extensive enlarged partially calcified dystrophic myomatous changes to the uterus. No ascites. No free air. No obvious intraperitoneal or retroperitoneal adenopathy. Musculoskeletal structures demonstrate age-related changes. Impression: 1. Extensive calcified atherosclerotic changes to the aorta and vasculature. No areas of stenosis or occlusion identified. 2. Few scattered colonic diverticula without acute diverticulitis. 3. Enlarged partially calcified myomatous uterus. Electronically Signed by Imtiaz Ramirez MD 08/14/2018 05:00 P
== END ==
LOC: M RAD 08:59
PROVIDERS: ATTEND Transplant Surgery
DX: Z01.818 Encounter for other preprocedural examination (principal); I70.0 Atherosclerosis of aorta; K57.90 Diverticulosis of intestine, part unspecified, without perforation or abscess without bleeding; I70.1 Atherosclerosis of renal artery
CPT/HCPCS: 74174; Q9967

== ENCOUNTER 2018-08-20 08:55 | Day surgery (SDC) | payer MEDICARE ==
[~2018-08-20] VITALS: Ht 149.9 cm; Wt 48.4 kg
[~2018-08-20 08:55] MED LIST changes: +BIMA01SOL OD; -BIMA01SOL OU; -ISOVUE-370 76% 125ML VIAL (Q9967 PER ML) As Ordered ONE; +LIDOCAINE 2% INJ 100 MG/5 ML SDV (FOR ANES.) As Ordered ONE; +LR 1,000 ML IV ONE; +MIDAZOLAM INJ 2 MG/2 ML VIAL (J2250) As Ordered ONE; +ONDANSETRON 4MG/2ML VIAL (J2405) As Ordered ONE; +PRED1SUS2 OS; -PRED1SUS2 OU; +PROPOFOL 500 MG/50 ML VIAL As Ordered ONE; +dexameTHASONE 4 MG/ML 1ML VIAL (J1100) As Ordered ONE; +fentaNYL 100 MCG/2 ML INJECTION (J3010) As Ordered ONE
[2018-08-20 09:43] LABS: HEMATOCRIT 39.5 % (36.0-47.0); HEMOGLOBIN 12.5 g/dl (12.0-15.5); MEAN CORPUSCULAR HEMOGLOBIN 28.5 pg (27.0-33.0); MEAN CORPUSCULAR HGB CONC 31.6 g/dl (32.0-36.5); PLATELET COUNT, AUTOMATED 175 10^3/uL (150-450); RED BLOOD COUNT 4.39 10^6/uL (4.00-5.40); WHITE BLOOD COUNT 9.8 10^3/uL (4.0-10.0)
[2018-08-20 09:56] LABS: ALBUMIN 3.6 GM/DL (3.2-5.2); BILIRUBIN,TOTAL 0.5 MG/DL (0.2-1.0); CALCIUM LEVEL 9.4 MG/DL (8.8-10.2); CREATININE FOR GFR 4.78 MG/DL (0.55-1.30); GLOMERULAR FILTRATION RATE 9.7 (>45); POTASSIUM SERUM 3.9 MEQ/L (3.5-5.1); TOTAL PROTEIN 7.5 GM/DL (6.4-8.2)
[2018-08-20] MEDS ORDERED: NS 1,000 ML IV ONE (10:00)
[2018-08-20] MEDS ORDERED: CLINDAMYCIN 600 MG/50 ML PREMIX BAG As Ordered ONE (10:24)
[2018-08-20] MEDS ORDERED: LIDOCAINE 1% SDV INJ 30 ML VIAL As Ordered ONE (10:24)
[2018-08-20] MEDS ORDERED: BUPIVACAINE HCL 0.5% 30 ML VIAL As Ordered ONE (10:25)
[2018-08-20] MEDS ORDERED: HEPARIN SOD (PORCINE) 5000 UNITS/ML VIAL As Ordered ONE ×3 (10:25→12:35)
[2018-08-20] MEDS ORDERED: ceFAZolin 2 GM/D5W 50 ML IV BAG (J0690 PER 500MG) As Ordered ONE (11:13)
[2018-08-20] MEDS ORDERED: CONRAY-60 60% 50ML VIAL (Q9961) As Ordered ONE ×2 (11:55→12:00)
[2018-08-20] MEDS ORDERED: PROTAMINE SULF INJ 50 MG/5 ML VIAL (J2720) As Ordered ONE (13:19)
[2018-08-20] MEDS ORDERED: THROMBIN SOLN 20,000 UNITS KIT As Ordered ONE (13:24)
[2018-08-20 15:45] VITALS: BP 147/72
[2018-08-20 16:15] VITALS: BP 118/60
[2018-08-20] MEDS ORDERED: HUMA100I5 SC (16:34)
[2018-08-20 17:15] VITALS: BP 135/63
[2018-08-20] MEDS ORDERED: NITROGLYCERIN 0.4 MG SUBL TABLET SL PRN (17:15)
[2018-08-20] MEDS ORDERED: GLUCOSE 4 GM CHEW TABLET PO PRN ×2 (17:30)
[2018-08-20] MEDS ORDERED: GLUCAGON FOR INJ 1 MG VIAL (J1610) SC PRN ×2 (17:30)
[2018-08-20] MEDS ORDERED: DEXTROSE 50% 50 ML SYRINGE IV PRN ×2 (17:30)
[2018-08-20] MEDS: HumaLOG INSULIN (NovoLOG) PER UNIT SC SCH (17:57)
[2018-08-20] MEDS: NORCO, ANEXSIA 5/325MG TABLET (HYDROcodone/ACETAMINOPHEN) PO PRN (17:58)
[2018-08-20] MEDS ORDERED: LEVEMIR (INSULIN DETEMIR) 1 UNITS/0.01ML SC SCH (21:00)
[2018-08-20] MEDS: CARVedilol 3.125 MG TAB PO SCH (21:00)
[2018-08-20] MEDS ORDERED: ATORVASTATIN 20 MG TAB PO SCH (21:00)
[2018-08-20 22:00] VITALS: BP 112/78
[2018-08-21 02:00] VITALS: BP 145/72
[2018-08-21] MEDS: NORCO, ANEXSIA 5/325MG TABLET (HYDROcodone/ACETAMINOPHEN) PO PRN (05:48)
[2018-08-21 06:00] VITALS: BP 175/84
[2018-08-21 07:34] VITALS: BP 175/84
[2018-08-21] MEDS: CARVedilol 3.125 MG TAB PO SCH (07:34)
[2018-08-21] MEDS: HumaLOG INSULIN (NovoLOG) PER UNIT SC SCH (07:34)
[2018-08-21] MEDS ORDERED: HYDR-3715 PO (07:36)
[2018-08-21] MEDS ORDERED: ASPIRIN 81 MG ENTERIC TAB PO SCH (09:00)
[2018-08-21] MEDS ORDERED: FOLIC ACID 1 MG TAB PO SCH (09:00)
[2018-08-21] MEDS ORDERED: predniSONE 5 MG TAB PO SCH (09:00)
[2018-08-21] MEDS ORDERED: prednisoLONE ACET 1% OPHTH SUSP 5ML OS SCH (09:00)
--- NOTE | 2018-08-26 14:08 | RO ---
DATE OF PROCEDURE: 08/20/2018 ATTENDING SURGEON: Dr. Tessa See CLASSROOM PARAPROFESSIONAL: Taya Combs PREOPERATIVE DIAGNOSIS: POSTOPERATIVE DIAGNOSIS: PROCEDURE: Revision of left basilic vein transposition arteriovenous fistula. INDICATION: The patient is a 68-year-old female with basilic vein transposition the in left upper extremity, which is unusable for hemodialysis. The patient requires translocation of the basilic vein with possible superficialization. Risks, benefits and alternative treatment options were discussed with the patient. ANESTHESIA: Local monitored anesthesia care (MAC). ESTIMATED BLOOD LOSS: 150 mL. INTRAVENOUS (IV) FLUIDS: 400 mL. HEPARIN: 7000 units. PROTAMINE: 50 mg. COMPLICATIONS: None. DRAINS: None. SPECIMENS: None. IMPLANTS: None. DESCRIPTION OF PROCEDURE: The patient was taken to the operating room, placed supine on the operating room table and the left upper extremity was prepped and draped in a standard surgical fashion. The incision from the previous translocation was opened and the basilic vein was sharply dissected free and then translocated to a more lateral portion of the upper arm. Hemostasis was obtained. After which, the wounds were closed using #2-0 Vicryl to approximate the deeper layers and samson to approximate the skin. Dressings were then applied. The patient tolerated the procedure well. All instrument, sponge and needle counts were correct at the end of the case. There were no complications. Dr. See was present for and directed the entire case. The patient was transferred to the recovery room awake, alert, extubated and in stable condition.
== END 2018-08-21 09:20 | disposition home or self-care (01) ==
LOC: M SDC 08:55 → M MS5PR 15:45 → M SDC 08-21 09:20
PROVIDERS: ATTEND Surgery Vascular Surgery
DX: T82.590A Other mechanical complication of surgically created arteriovenous fistula, initial encounter (principal)
CPT/HCPCS: 36415; 36832; 76000; 80053; 85027; C1725; C1768; C1769; C1887; C1894; J0690; J1100; J2250; J2405; J2720; J3010; Q9961

== ENCOUNTER → 2018-09-10 | Outpatient (CLI) | payer MEDICARE ==
[~2018-09-10] MED LIST changes: +BUPIVACAINE HCL 0.5% 10 ML VIAL As Ordered ONE; +HUMA100I5 SC; +HYDR-3715 PO; +ISOVUE-300 61% 100ML VIAL (Q9967) As Ordered ONE; -LIDOCAINE 2% INJ 100 MG/5 ML SDV (FOR ANES.) As Ordered ONE; +LIDOCAINE 2% MDV 20 ML VIAL As Ordered ONE; -LR 1,000 ML IV ONE; -ONDANSETRON 4MG/2ML VIAL (J2405) As Ordered ONE; -PROPOFOL 500 MG/50 ML VIAL As Ordered ONE; -dexameTHASONE 4 MG/ML 1ML VIAL (J1100) As Ordered ONE
--- NOTE | 2018-09-30 08:42 | REPIR ---
DATE OF PROCEDURE: 09/10/2018 PREPROCEDURE DIAGNOSES: End-stage renal disease, dysfunctional left basilic vein transposition, arteriovenous fistula status post revision. POSTPROCEDURE DIAGNOSES: End-stage renal disease, dysfunctional left basilic vein transposition arteriovenous fistula status post revision. PROCEDURE: Left basilic vein transposition arteriovenous fistulogram, retrograde left brachial artery angiogram, left basilic vein angioplasty with 6 x 100 and 8 x 200 balloon, left axillary vein angioplasty with 6 x 100 and 8 x 200 balloons. SURGEON: Dr. Tessa See MANAGER [place]: Harry Khan and Leann Montgomery. INDICATION: The patient is a 68-year-old female who underwent translocation of her dysfunctional left basilic vein transposition arteriovenous fistula due to inability to undergo cannulation. The patient will now undergo a fistulogram with possible angioplasty, stent and/or atherectomy. Risks, benefits and alternative treatment options were discussed with the patient. ANESTHESIA: Local with 1 mg Versed, 50 mcg of fentanyl and 2 mL of 2% lidocaine mixed with 0.5% Marcaine. FLUORO TIME: 1.2 minutes. CONTRAST: 3 mL of Isovue 300. SEDATION TIME: From 10:27 a.m. to 10:48 a.m. for a total of 21 minutes. COMPLICATIONS: None. DRAINS: None. SPECIMENS: None. IMPLANTS: None. PROCEDURE: The patient was taken to the angiography suite and placed supine on the angiography room table and the left upper extremity was prepped and draped in a standard surgical fashion. The left basilic vein transposition arteriovenous fistula was cannulated. A fistulogram performed showing stenosis at the basilic vein axillary vein junction. The left basilic vein and axillary vein were angioplastied first with a 6 x 100 and then 8 x 200 balloon. During inflation of the 8 x 200 balloon, a retrograde brachial artery angiogram was performed showing no intervention required. A completion fistulogram was performed showing resolution of the stenosis and excellent thrill was noted in the fistula. Catheters and wires were removed. The sheath was removed and a #2-0 Prolene suture was placed at the puncture site for hemostasis. Dressings were then applied. The patient tolerated the procedure well. All instrument, sponge, needle counts were correct at the end the case. There were no complications. Dr. See was present for and directed the entire case. The patient was transferred to the holding area and subsequently discharged in stable condition. The samson from her previous revision were removed during the procedure. The fistula is stable for use for attempted hemodialysis access.
== END | disposition home or self-care (01) ==
LOC: M IRPRO 08:53
PROVIDERS: ATTEND Surgery Vascular Surgery
DX: T82.858A Stenosis of other vascular prosthetic devices, implants and grafts, initial encounter (principal); N18.6 End stage renal disease; Z99.2 Dependence on renal dialysis
CPT/HCPCS: 36902; C1725; C1769; C1894; J2250; J3010; Q9967

== ENCOUNTER 2018-12-10 09:43 | Day surgery (SDC) | payer MEDICARE ==
[~2018-12-10] VITALS: Ht 147.3 cm; Wt 49.9 kg
[~2018-12-10 09:43] MED LIST changes: -BUPIVACAINE HCL 0.5% 10 ML VIAL As Ordered ONE; +FOSR1000 PO; -ISOVUE-300 61% 100ML VIAL (Q9967) As Ordered ONE; -LIDOCAINE 2% MDV 20 ML VIAL As Ordered ONE; -MIDAZOLAM INJ 2 MG/2 ML VIAL (J2250) As Ordered ONE; -fentaNYL 100 MCG/2 ML INJECTION (J3010) As Ordered ONE
[2018-12-10 11:11] LABS: HEMATOCRIT 36.7 % (36.0-47.0); HEMOGLOBIN 11.7 g/dl (12.0-15.5); MEAN CORPUSCULAR HEMOGLOBIN 29.8 pg (27.0-33.0); MEAN CORPUSCULAR HGB CONC 31.9 g/dl (32.0-36.5); MEAN CORPUSCULAR VOLUME 93.6 fl (80.0-96.0); PLATELET COUNT, AUTOMATED 148 10^3/uL (150-450); RED BLOOD COUNT 3.92 10^6/uL (4.00-5.40); WHITE BLOOD COUNT 6.4 10^3/uL (4.0-10.0)
[2018-12-10 11:44] LABS: CALCIUM LEVEL 8.2 MG/DL (8.8-10.2); CREATININE FOR GFR 3.33 MG/DL (0.55-1.30); GLOMERULAR FILTRATION RATE 14.7 (>45); POTASSIUM SERUM 4.5 MEQ/L (3.5-5.1)
[2018-12-10] MEDS ORDERED: ONDANSETRON 4MG/2ML VIAL (J2405) As Ordered ONE (11:46)
[2018-12-10] MEDS ORDERED: KETAMINE HCL 200 MG/20 ML VIAL As Ordered ONE (11:46)
[2018-12-10] MEDS ORDERED: PROPOFOL 200 MG/20 ML VIAL As Ordered ONE (11:46)
[2018-12-10] MEDS ORDERED: LIDOCAINE 2% INJ 100 MG/5 ML SDV (FOR ANES.) As Ordered ONE (11:46)
[2018-12-10] MEDS ORDERED: fentaNYL 100 MCG/2 ML INJECTION (J3010) As Ordered ONE (11:49)
[2018-12-10] MEDS ORDERED: MIDAZOLAM INJ 2 MG/2 ML VIAL (J2250) As Ordered ONE (11:50)
[2018-12-10] MEDS: LIDOCAINE 1% SDV INJ 30 ML VIAL As Ordered ONE (12:15)
[2018-12-10] MEDS: BUPIVACAINE HCL 0.5% 30 ML VIAL As Ordered ONE (12:15)
[2018-12-10] MEDS: HEPARIN SOD (PORCINE) 5000 UNITS/ML VIAL As Ordered ONE (12:21)
[2018-12-10] MEDS ORDERED: hydrALAZINE INJ 20 MG/ML VIAL As Ordered ONE (12:27)
[2018-12-10] MEDS: ISOVUE-300 61% 50ML VIAL (Q9967) As Ordered ONE (12:47)
[2018-12-10] MEDS ORDERED: NS 1,000 ML IV SCH (13:30)
[2018-12-10] MEDS ORDERED: fentaNYL 100 MCG/2 ML INJECTION (J3010) IV PRN (13:30)
[2018-12-10] MEDS ORDERED: ONDANSETRON 4MG/2ML VIAL (J2405) IV PRN (13:30)
[2018-12-10 14:04] VITALS: BP 168/71
--- NOTE | 2018-12-10 19:12 | ECGEPIP ---
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 Electronically Signed on 12-10-2018 19:12:23 EDT by Huber Tucker
[2019-01-06] MEDS ORDERED: PLAV1TAB2 PO (15:03)
--- NOTE | 2019-01-07 09:31 | RO ---
DATE OF PROCEDURE: 12/10/2018 ATTENDING PHYSICIAN: Dr. Mandy See SUPERVISOR GENERAL: None. PREOPERATIVE DIAGNOSES: End-stage renal disease, dysfunctional left basilic vein transposition arteriovenous fistula. POSTOPERATIVE DIAGNOSES: End-stage renal disease, dysfunctional left basilic vein transposition arteriovenous fistula. PROCEDURE: Right brachiocephalic arteriovenous fistula creation. INDICATION: The patient is 68-year-old female with end-stage renal disease who dialyzes through a right tunneled central venous catheter who requires access for hemodialysis. The patient will undergo a right arm arteriovenous fistula creation. ANESTHESIA: Local monitored anesthesia care (MAC). ESTIMATED BLOOD LOSS: 15 mL. IV FLUIDS: 200 mL. HEPARIN: None. COMPLICATIONS: None. DRAINS: None. SPECIMENS: None. IMPLANTS: None. PROCEDURE: The patient was taken to the operating room, placed supine on the operating room table, then prepped and draped in a standard surgical fashion. The skin and subcutaneous tissue at the antecubital fossa was anesthetized with 1% lidocaine mixed with 0.5% Marcaine. The incision was made and the cephalic vein was identified, dissected sharply and then transected as far distal as possible. The brachial artery was sharply dissected free proximally distally and then clamped. The cephalic vein was anastomosed to the brachial artery in an end-to-side fashion using #6-0 Prolene suture in a running continuous fashion. There was good flow in the fistula, which had to dual outflow through the basilic and cephalic veins into the upper arm. Hemostasis was obtained, after which, the incision was closed with #3-0 Monocryl to approximate the skin in a running subcuticular fashion. Steri-Strips and dressings were applied. The patient tolerated procedure well. All instrument, sponge, and needle counts were correct at the end the case. There were no complications. Dr. See was present for and directed the entire case. The patient was transferred to the recovery room and subsequently discharged in stable condition.
== END 2018-12-10 14:25 | disposition home or self-care (01) ==
LOC: M SDC 09:43
PROVIDERS: ATTEND Surgery Vascular Surgery
DX: N18.6 End stage renal disease (principal); T82.898A Other specified complication of vascular prosthetic devices, implants and grafts, initial encounter; I25.2 Old myocardial infarction; I25.10 Atherosclerotic heart disease of native coronary artery without angina pectoris; M06.9 Rheumatoid arthritis, unspecified; E78.5 Hyperlipidemia, unspecified; E11.22 Type 2 diabetes mellitus with diabetic chronic kidney disease; I12.0 Hypertensive chronic kidney disease with stage 5 chronic kidney disease or end stage renal disease; H40.9 Unspecified glaucoma; M81.0 Age-related osteoporosis without current pathological fracture; Z79.899 Other long term (current) drug therapy; Z79.82 Long term (current) use of aspirin; Z79.4 Long term (current) use of insulin; Z95.5 Presence of coronary angioplasty implant and graft; X58.XXXA Exposure to other specified factors, initial encounter; Y93.9 Activity, unspecified; Y92.9 Unspecified place or not applicable; Y99.9 Unspecified external cause status
CPT/HCPCS: 36415; 36821; 80048; 84132; 85027; 93005; J2250; J2405; J3010

== ENCOUNTER 2018-12-13 19:24 | Inpatient (IN) | payer MEDICARE ==
[~2018-12-13] VITALS: Ht 147.3 cm; Wt 51.1 kg
[~2018-12-13 19:24] MED LIST changes: +BISO5TAB14 PO; -BISO5TAB5 PO; -FENO145T13 PO; +FENO145T7 PO
[2018-12-13] MEDS ORDERED: GI COCKTAIL 50ML BTL(HYOSCYAMINE/MAALOX/LIDOCAINE VISCOUS)(1:3:1) PO ONE (20:00)
[2018-12-13] MEDS ORDERED: NITROGLYCERIN 2% OINT 1 GM *U/D* PKT TOP ONE (20:00)
[2018-12-13] MEDS ORDERED: MORPHINE 2 MG/ML 1ML VIAL (J2270) IV PRN (20:15)
[2018-12-13 20:17] LABS: BASO # 0.1 10^3/uL (0.0-0.2); EOS # 0.1 10^3/uL (0.0-0.50); EOS % 0.9 % (0.0-3.0); HEMATOCRIT 39.9 % (36.0-47.0); HEMOGLOBIN 12.6 g/dl (12.0-15.5); LYMPH # 1.1 10^3/uL (1.5-4.5); LYMPH % 11.5 % (24.0-44.0); MEAN CORPUSCULAR HEMOGLOBIN 29.5 pg (27.0-33.0); MEAN CORPUSCULAR HGB CONC 31.6 g/dl (32.0-36.5); MEAN CORPUSCULAR VOLUME 93.4 fl (80.0-96.0); MONO # 0.2 10^3/uL (0.0-0.8); MONO % 2.5 % (0.0-5.0); NEUTROPHILS # 7.6 10^3/uL (1.8-7.7); NEUTROPHILS % 83.2 % (36.0-66.0); PLATELET COUNT, AUTOMATED 168 10^3/uL (150-450); RED BLOOD COUNT 4.27 10^6/uL (4.00-5.40); WHITE BLOOD COUNT 9.2 10^3/uL (4.0-10.0)
[2018-12-13 20:21] LABS: PROTHROMBIN TIME 12.9 SECONDS (11.8-14.0)
[2018-12-13 20:22] LABS: PARTIAL THROMBOPLASTIN TIME 33.8 SECONDS (25.0-38.4)
[2018-12-13 20:49] LABS: ALBUMIN 3.5 GM/DL (3.2-5.2); BILIRUBIN,DIRECT 0.1 MG/DL (0.0-0.2); BILIRUBIN,TOTAL 0.3 MG/DL (0.2-1.0); C REACTIVE PROTEIN QUANTITATIV 0.3 MG/DL (0.00-0.30); CALCIUM LEVEL 9.2 MG/DL (8.8-10.2); CREATININE FOR GFR 4.76 MG/DL (0.55-1.30); GLOMERULAR FILTRATION RATE 9.7 (>45); MB/CK RELATIVE INDEX 1.83 (< OR =4); POTASSIUM SERUM 4.8 MEQ/L (3.5-5.1); THYROID STIMULATING HORMONE 0.197 uIU/ML (0.358-3.740); TOTAL PROTEIN 7.1 GM/DL (6.4-8.2); TROPONIN I 0.03 NG/ML (< 0.10)
[2018-12-13] MEDS: DOCUSATE SODIUM 100 MG CAP PO SCH (21:00)
[2018-12-13] MEDS: CARVedilol 3.125 MG TAB PO SCH (21:00)
[2018-12-13] MEDS ORDERED: ATORVASTATIN 20 MG TAB PO SCH (21:00)
[2018-12-13] MEDS ORDERED: ISOVUE-370 76% 100ML VIAL (Q9967) As Ordered ONE (21:13)
[2018-12-13] MEDS ORDERED: hydrALAZINE INJ 20 MG/ML VIAL IV STA (22:22)
--- NOTE | 2018-12-13 23:25 | REPVR ---
EXAM: CT Abdomen and Pelvis With Contrast EXAM DATE/TIME: 12/13/2018 9:25 PM CLINICAL HISTORY: 68 years old, female; Abnormal Findings; Abnormal Lab Test; Elevated Lipase; Additional Info: elevated lipase (approved by nephro) TECHNIQUE: Imaging protocol: Axial computed tomography images of the abdomen and pelvis with intravenous contrast. Coronal and sagittal reformatted images were created and reviewed. Radiation optimization: All CT scans at this facility use at least one of these dose optimization techniques: automated exposure control; mA and/or kV adjustment per patient size (includes targeted exams where dose is matched to clinical indication); or iterative reconstruction. Contrast material: ISOVUE 370; Contrast volume: 100 ml; Contrast route: IV; COMPARISON: CT ANGIO ABD/PEL 08/13/2018 9:15 AM FINDINGS: Lungs: Abnormal lungs. Liver: Multiple calcified granulomas in the liver. No masses. Gallbladder and bile ducts: Normal. No calcified stones. No ductal dilation. Pancreas: Normal. No ductal dilation. Spleen: Multiple calcified myomas in the spleen. No masses. Adrenals: Normal. No mass. Kidneys and ureters: No hydronephrosis. Hypodense lesion in upper pole right kidney measuring 10 mm. Stomach and bowel: No obstruction. Diffuse mild thickening of the small bowel. Copious stool throughout the colon. Appendix: The appendix is not seen. However, there is no evidence of appendicitis. Intraperitoneal space: Normal. No free air. No significant fluid collection. Vasculature: Severe atherosclerotic disease. No aortic aneurysm. Splenorenal collaterals. Lymph nodes: Normal. No enlarged lymph nodes. Bladder: Unremarkable as visualized. Reproductive: Multiple calcified fibroids in the uterus. Bones/joints: No acute fracture. No dislocation. Soft tissues: Mild diffuse subcutaneous edema. IMPRESSION: 1. Pancreas is unremarkable. 2. Diffuse mild thickening of the small bowel. Mild enteritis cannot be excluded. 3. Hypodense lesion in upper pole right kidney. No change from prior. No followup is necessary. 4. Additional findings as described. 5. See CT chest report. COMMENT: Consistent with the [employer]'s Incidental Findings Committee Report (J Am Jamel Radiol 2010): Unless the patient's specific circumstances suggest otherwise, any liver lesion 0.5 cm or less, any cystic kidney lesion less than 1.0 cm, and/or any adrenal lesion 1.0 cm or less not otherwise characterized in this report as possessing suspicious or indeterminate imaging features is/are highly likely to be benign and do not require follow-up imaging or biopsy. Electronically signed by: Michael Tillman On 12/13/2018 23:25:07 PM
--- NOTE | 2018-12-13 23:28 | REPVR ---
EXAM: CT Angiography Chest With Contrast EXAM DATE/TIME: 12/13/2018 9:25 PM CLINICAL HISTORY: 68 years old, female; Chest pain; Additional Info: chest pain, radiates to back (approved by nephro) TECHNIQUE: Imaging protocol: Axial computed tomographic angiography images of the chest with intravenous contrast using CT angiography protocol. Coronal and sagittal reformatted images were created and reviewed. 3D rendering: MIP reconstructed images were created and reviewed. Radiation optimization: All CT scans at this facility use at least one of these dose optimization techniques: automated exposure control; mA and/or kV adjustment per patient size (includes targeted exams where dose is matched to clinical indication); or iterative reconstruction. Contrast material: ISOVUE 370; Contrast volume: 100 ml; Contrast route: IV; COMPARISON: CR PORTABLE CHEST X-RAY 12/13/2018 8:21 PM FINDINGS: Limitations: Examination is limited by motion artifact. Tubes, catheters and devices: Left IJ central venous catheter with tip in the right atrium. Pulmonary arteries: Normal. No pulmonary emboli. Aorta: Mild atherosclerotic disease. No aortic aneurysm. No aortic dissection. Lungs: Diffuse septal thickening. Patchy ground glass opacities bilaterally. Diffuse bronchial thickening. Pleural space: Mild bilateral pleural effusions. No pneumothorax. Heart: Mild cardiomegaly. Lymph nodes: Unremarkable. No enlarged lymph nodes. Bones/joints: Mild degenerative spine. No acute fracture. Soft tissues: Unremarkable. IMPRESSION: 1. No pulmonary emboli. 2. No aortic dissection. 3. Abnormal lungs. Consistent with pulmonary edema. Viral pneumonia cannot be excluded. 4. Mild bilateral pleural effusions. 5. Additional findings as described. Electronically signed by: Michael Tillman On 12/13/2018 23:28:07 PM
[2018-12-13 23:41] LABS: CK-MB VALUE MASS 6.1 NG/ML (<3.6); MB/CK RELATIVE INDEX 4.07 (< OR =4); TROPONIN I 0.72 NG/ML (< 0.10)
[2018-12-14] MEDS ORDERED: MAALOX 30 ML SUSP *UDC PO PRN (00:45)
[2018-12-14] MEDS ORDERED: ACETAMINOPHEN TAB 650MG DOSE (2X325MG) PO PRN (00:45)
[2018-12-14] MEDS ORDERED: MOM 30ML SUSPENSION UDC PO PRN (00:45)
[2018-12-14] MEDS ORDERED: MORPHINE 4 MG/ML 1ML VIAL/SYRINGE (J2270) IV PRN (01:00)
--- NOTE | 2018-12-14 01:11 | HPEPDOC ---
General Date of Admission Dec 14, 2018 at 00:44 Date of Service: Dec 14, 2018 Attending Physician: BASILIO MCCANN MD Chief Complaint The patient is a 68-year-old female admitted with a reason for visit of Pulmonary Edema. Source: Patient Exam Limitations: No limitations Timing/Duration: This evening Severity: Moderate Associated Symptoms: Chest Pain History of Present Illness 68 years old white female who was noncompliant to diet. This weekend and few beers also had a barbecued food including hotdogs and now she presents with complaining of chest pain half hour prior to presentation in the emergency room at 1928 hrs. , Chest, pelvis midsternal dull in character to resolved now was present. There present there for half hour, nonradiating, associated with shortness of breath, not relieved with any meds or not exacerbated by any medications or position, Patient was diagnosed with volume overload. Nephrology was contacted and patient will be admitted to PCU for close monitoring and and possible hemodialysis in a.m. on interview patient feels much better since the presentation and chest pain is pretty much relieved Home Medications Scheduled Aspirin (Aspirin EC) 81 Mg Tab, 81 MG PO DAILY, (Reported) Atorvastatin Calcium (Atorvastatin Calcium) 20 Mg Tab, 20 MG PO QHS, (Reported) Bimatoprost (Lumigan) 50 Drop/2.5 Ml Ana Paula, 1 DROP OD QHS, (Reported) Brimonidine Tartrate (Brimonidine Tartrate) 0.2 % An [place], 1 DROP OU TID, (Reported) Brinzolamide (Azopt) 1 % Loraine, 1 DROP OU BID, (Reported) Carvedilol (Carvedilol) 3.125 Mg Tab, 3.125 MG PO BID, (Reported) TAKES IF BP >140 Cholecalciferol (Vitamin D3) (Vitamin D3) 50,000 Unit Cap, 50,000 UNIT PO 1XMONTH, (Reported) Folic Acid (Folic Acid) 1 Mg Tab, 1 MG PO DAILY, (Reported) Folic Acid/Vit B Complex and C (Jenni-Tres Tablet) 1 Tab Tab, 1 TAB PO DAILY, (Reported) Insulin Glargine,Hum.rec.anlog (Lantus Solostar) 100 Unit/Ml Inj, 5 UNITS SC QHS, (Reported) Insulin Lispro (Humalog Kwikpen U-100) 100 Unit/Ml Inj, 0 SC AC, (Reported) PER SLIDING SCALE Lanthanum Carbonate (Fosrenol) 1,000 Mg Tab.chew, 1,000 MG PO DAILY, (Reported) WITH BIGGEST MEAL Prednisolone Acetate (Pred Forte 1% Opth Susp) 1 % Loraine, 1 DROP OS DAILY, (Reported) Prednisone (Prednisone) 5 Mg Tab, 5 MG PO DAILY, (Reported) Timolol Maleate (Timolol Maleate) 0.5 % Ana Paula, 1 DROP OU BID, (Reported) Scheduled PRN Nitroglycerin (Nitrostat) 0.4 Mg Subl, 0.4 MG SL NITRO PRN for CHEST PAIN, (Reported) Allergies Coded Allergies: No Known Allergies (Unverified , 12/10/18) Past Medical History Medical History End-stage renal disease on hemodialysis, bladder suspension for stents in the past 6. 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 Patient hemodialysis on Friday, Friday and Fridays. Also, history of hyperlipidemia Surgical History As above Family History Significant Family History: No pertinent family hx Social History * Smoker: Denies Alcohol: occationally A-FIB/CHADSVASC A-FIB History Current/History of A-Fib/PAF?: No Review of Systems Constitutional: Denies: Chills, Fever, Malaise, Night Sweats, Weakness, Fatigue, Weight Loss, Lethargy, Other Eyes: Denies: Pain, Vision change, Conjunctivae inflammation, Eyelid inflammation, Redness, Other ENT: Denies: Head Aches, Ear Pain, Dysphagia, Sinus Congestion, Post Nasal Drip, Sore Throat, Epistaxis, Other Symptoms Skin: Denies: Rash, Lesions, Jaundice, Bruising, Itching, Dry, Breakdown, Nail Changes, Other Pulmonary: Reports: Dyspnea Cardiovascular: Reports: Chest Pain Gastrointestinal: Denies: Nausea, Vomiting, Abdominal Pain, Diarrhea, Constipation, Melena, Hematochezia, Other Symptoms Genitourinary: Denies: Dysuria, Frequency, Incontinence, Hematuria, Retention, Other Symptoms Hematologic: Denies: Bruising, Bleeding Excessively, Petecchia, Purpura, Enlarged Lymph Nodes, Other Hematologic Endocrine: Denies: Polydipsia, Polyphagia, Polyuria, Heat Intolerance, Cold Intolerance, Other Endocrine Sx Musculoskeletal: Denies: Neck Pain, Back Pain, Shoulder Pain, Arm Pain, Hand Pain, Leg Pain, Foot Pain, Joint Pain, Muscle Pain, Spasms, Other Symptoms Neurological: Denies: Weakness, Numbness, Incoordination, Change in speech, Confusion, Seizures, Other Symptoms Psych: Denies: Mood Normal, Anxiety, Depression, Memory Issues, Thoughts of Self Harm, Anger, Thoughts of Harming Other, Other Psych Physical Examination General Exam: Positive: Alert, Cooperative Eye Exam: Positive: PERRLA, Conjunctiva & lids normal ENT Exam: Positive: Atraumatic, Mucous membr. moist/pink Neck Exam: Positive: Supple Chest Exam: Positive: Rales (bilateral rales audible) Heart Exam: Positive: Rate Normal Abdomen Exam: Positive: Normal bowel sounds, Soft Extremity Exam: Positive: Normal pulses Skin Exam: Positive: Nl turgor and temperature Neuro Exam: Positive: Strength at 5/5 X4 ext, Sensation Intact Psych Exam: Positive: Mental status NL, Mood NL, Oriented x 3 Vital Signs Vital Signs Date Time Temp Pulse Resp B/P (MAP) Pulse Ox O2 Delivery O2 Flow Rate FiO2 12/14/18 00:50 106 96 12/14/18 00:30 18 171/81 (111) 12/13/18 22:55 Room Air 12/13/18 19:28 96.2 Laboratory Data Labs 24H Laboratory Tests 2 12/13/18 19:48: Immature Granulocyte % (Auto) 0.9, White Blood Count 9.2, Red Blood Count 4.27, Hemoglobin 12.6, Hematocrit 39.9, Mean Corpuscular Volume 93.4, Mean Corpuscular Hemoglobin 29.5, Mean Corpuscular Hemoglobin Concent 31.6L, Red Cell Dist ribution Width 13.5, Platelet Count 168, Neutrophils (%) (Auto) 83.2H, Lymphocytes (%) (Auto) 11.5L, Monocytes (%) (Auto) 2.5, Eosinophils (%) (Auto) 0.9, Basophils (%) (Auto) 1.0, Neutrophils # (Auto) 7.6, Lymphocytes # (Auto) 1.1L, Monocytes # (Auto) 0.2, Eosinophils # (Auto) 0.1, Basophils # (Auto) 0.1, Nucleated Red Blood Cells % (auto) 0.0, Prothrombin Time 12.9, Prothromb Time International Ratio 1.00, Activated Partial Thromboplast Time 33.8, Anion Gap 13, Glomerular Filtration Rate 9.7L, Calcium Level 9.2, Aspartate Amino Transf (AST/SGOT) 33, Alanine Aminotransferase (ALT/SGPT) 23, Alkaline Phosphatase 56, Total Bilirubin 0.3, Direct Bilirubin 0.1, Total Creatine Kinase 109, Creatine Kinase MB 2.0, Creatine Kinase MB Relative Index 1.83, Troponin I 0.03, C- Reactive Protein, Quantitative 0.30, FR-Exn-K-Type Natriuretic Peptide 91318Q, Total Protein 7.1, Albumin 3.5, Albumin/Globulin Ratio 0.97L, Lipase 515H, Thyroid Stimulating Hormone (TSH) 0.197L 12/13/18 22:52: Total Creatine Kinase 150, Creatine Kinase MB 6.1H, Creatine Kinase MB Relative Index 4.07H, Troponin I 0.72#H CBC/BMP Laboratory Tests 12/13/18 19:48 Red Blood Count 4.27, Mean Corpuscular Volume 93.4, Mean Corpuscular Hemoglobin 29.5, Mean Corpuscular Hemoglobin Concent 31.6 L, Red Cell Distribution Width 13.5, Neutrophils (%) (Auto) 83.2 H, Lymphocytes (%) (Auto) 11.5 L, Monocytes (%) (Auto) 2.5, Eosinophils (%) (Auto) 0.9, Basophils (%) (Auto) 1.0, Neutrophils # (Auto) 7.6, Lymphocytes # (Auto) 1.1 L, Monocytes # (Auto) 0.2, Eosinophils # (Auto) 0.1, Basophils # (Auto) 0.1 Microbiology Microbiology 12/13/18 Blood Culture, Received Pending 12/13/18 Blood Culture, Received Pending Problems (1) Pulmonary edema Status: Acute Problem Text: Admit to PCU with telemetry Saline lock Hydralazine 10 mg IV every 4 hours when necessary for systolic blood pressure more than 150 Nitroglycerin 1 inch to chest wall every 6 hours Continue all home medications Hemodialysis today to reduce the volume overload in a.m. Dr. Dove to spoken with nephrology regarding consultation Patient does have a high troponin, which is 0.7, most likely secondary to ischemia demand secondary to CHF Will order a third troponin in a.m. to compare the numbers Also, will order EKG in a.m. compare with old EKGs Extensive dietary counseling and counseling regarding compliance with the diet was done with family at bedside (2) Hypertensive urgency Status: Acute (3) ESRD (end stage renal disease) on dialysis Status: Acute Problem Text: Patient gets dialysis on Friday, Friday, Friday Nephrology was called. Patient will get HD in a.m. Plan / VTE VTE Prophylaxis Ordered?: Yes BASILIO MCCANN MD Dec 14, 2018 01:11
[2018-12-14 02:00] VITALS: BP 140/80
[2018-12-14] MEDS: NITROGLYCERIN 2% OINT 1 GM *U/D* PKT TOP SCH ×2 (04:30→09:52)
[2018-12-14] MEDS: hydrALAZINE INJ 20 MG/ML VIAL IV SCH ×3 (04:31→14:06)
[2018-12-14] MEDS ORDERED: ONDANSETRON 4MG/2ML VIAL (J2405) IV PRN (06:15)
[2018-12-14] MEDS ORDERED: GLUCOSE 4 GM CHEW TABLET PO PRN (06:30)
[2018-12-14] MEDS ORDERED: GLUCAGON FOR INJ 1 MG VIAL (J1610) SC PRN (06:30)
[2018-12-14] MEDS ORDERED: DEXTROSE 50% 50 ML SYRINGE IV PRN (06:30)
--- NOTE | 2018-12-14 07:09 | REP ---
Portable chest, 08:23 p.m., single AP view with the patient upright: Comparison is 03/15/2018. There is diffuse bilateral interstitial coarsening that has worsened from the prior study. This is compatible with interstitial infiltrates. No pleural effusions are identified. There is cardiomegaly, unchanged. The raffi and mediastinum are unchanged. There is a dual lumen left IJ central venous catheter with the tip in the right atrium in satisfactory position. This was not present previously. The previous right IJ central venous catheter has been removed. Impression: Interstitial infiltrates, worsened from the prior study . Chronic cardiomegaly. Electronically Signed by Micha Linda MD 12/14/2018 07:00 A
--- NOTE | 2018-12-14 07:25 | ECGEPIP ---
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
[2018-12-14] MEDS ORDERED: HumaLOG INSULIN (NovoLOG) PER UNIT SC SCH ×2 (07:30→21:00)
[2018-12-14] MEDS: DOCUSATE SODIUM 100 MG CAP PO SCH (08:36)
[2018-12-14] MEDS: CARVedilol 3.125 MG TAB PO SCH (08:36)
[2018-12-14 08:45] VITALS: BP 160/72
[2018-12-14] MEDS ORDERED: LANTHANUM CARBONATE 500 MG CHEW TABLET PO SCH (09:00)
[2018-12-14] MEDS ORDERED: predniSONE 5 MG TAB PO SCH (09:00)
[2018-12-14] MEDS ORDERED: ASPIRIN 81 MG ENTERIC TAB PO SCH (09:00)
[2018-12-14] MEDS ORDERED: prednisoLONE ACET 1% OPHTH SUSP 5ML OS SCH (09:00)
[2018-12-14] MEDS ORDERED: SLF 3 ML SYR IV PRN (09:00)
[2018-12-14] MEDS ORDERED: FOLIC ACID 1 MG TAB PO SCH (09:00)
[2018-12-14] MEDS ORDERED: ASPIRIN 325 MG TAB PO ONE (09:15)
[2018-12-14] MEDS ORDERED: METOPROLOL TART 25 MG TABLET PO ONE (09:15)
[2018-12-14] MEDS ORDERED: ATORVASTATIN 20 MG TAB PO ONE (09:15)
[2018-12-14] MEDS ORDERED: CLOPIDOGREL 300 MG TAB (PLAVIX) PO STA (09:16)
[2018-12-14] MEDS ORDERED: HEPARIN DRIP 25,000 UNITS in IV 1 EA IV SCH ×3 (09:23→09:54)
[2018-12-14] MEDS ORDERED: HEPARIN SOD (PORCINE) 5000 UNITS/ML VIAL IV PRN (09:30)
[2018-12-14] MEDS ORDERED: HEPARIN SOD (PORCINE) 5000 UNITS/ML VIAL IV ONE (09:30)
[2018-12-14 10:12] LABS: CK-MB VALUE MASS 44.3 NG/ML (<3.6); MB/CK RELATIVE INDEX 14.2 (< OR =4); TROPONIN I 7.92 NG/ML (< 0.10)
[2018-12-14] MEDS ORDERED: LABETALOL HCL 100 MG/20 ML VIAL IV ONE ×2 (11:45→15:00)
[2018-12-14] MEDS ORDERED: LABETALOL HCL 100 MG/20 ML VIAL As Ordered ONE (11:45)
[2018-12-14] MEDS ORDERED: HEPARIN 1,000 UNITS/ML 10ML VIAL (FOR RADIOLOGY& DIALYSIS ONLY) XX ONE (12:00)
[2018-12-14] MEDS ORDERED: SLF 3 ML SYR IV SCH (14:00)
[2018-12-14 14:56] VITALS: BP 160/80
--- NOTE | 2018-12-14 14:56 | DS.PDOC ---
Discharge Summary General Date of Admission Dec 14, 2018 at 00:44 Date of Discharge 12/14/18 Attending Physician: ARON JOHNSON MD Discharge Summary PROCEDURES PERFORMED DURING STAY: Dialysis, 12/14 ADMITTING DIAGNOSES: 1. Pulmonary edema. 2. Hypertensive urgency. 3. End-stage renal disease DISCHARGE DIAGNOSES: 1. Acute NSTEMI 2. Hypertensive emergency. 3. CHF exacerbation with pulmonary edema 4. End-stage renal disease SECONDARY DIAGNOSIS: Diabetes mellitus insulin dependent Coronary Artery disease with multiple stents in the past. Blocked Left Circumflex stents seen in July 2017 cardiac cath. Hypertension. Rheumatoid arthritis steroid dependent Gastroesophageal reflux disease. Dyslipidemia. Hypertension. Glaucoma Non rheumatic mitral regurgitation Moderate Mitral regurgitation COMPLICATIONS/CHIEF COMPLAINT: Pulmonary Edema. HISTORY OF PRESENT ILLNESS: Lyndsay is a 68-year-old female with a past pertinent medical history of NE (2014) requiring one stent, 3 more additional stents placed (July 2015), occluded stent in 2017, and end-stage renal disease on hemodialysis since February 2018, who presented to the ED yesterday evening (12/13) with a chief complaint of chest pain. Chest pain began a half hour prior to presentation to emergency department at 7:30 on 12/13. She describes the pain as being midsternal in location, dull in character, and nonradiating, but it soon resolved after being seen in the ED. Her pain was associated with dyspnea and nothing seemed to exacerbate or improve the pain while it was present. She was subsequently diagnosed with volume overload. The patient was then admitted to the PCU under the care of the hospitalist team for close monitoring. Nephrology was also contacted. Patient said she noticed last week that her blood pressure increased, so she took when necessary beta cat. HOSPITAL COURSE: After Lyndsay was admitted to PCU. She was given hydralazine and nitroglycerin for her hypertensive urgency, and all of her home medications were continued. Initial troponins were 0.03, but follow-up troponin meredith to 0. 72. It was thought at this time, the increase was likely secondary to ischemia demand due to her congestive heart failure. An EKG was also ordered for this morning (12/14) to compare with old EKGs A third troponin was ordered for this morning, which significantly increased to 5.1. At this point, the patient complained of dull left posterior shoulder pain as well as left posterior paraspinal thoracic pain, fluttering heartbeat, and vomiting this morning. EKG this morning showed ST depression in leads 1, V5 and v6 on admission which was similar to EKG in Feb 2018. This morning's EKG showed the persistent ST depression in lead I but eh V5 and V6 only showed flattening but no depression. Patient denied any chest pain at this point outside of the afore mentioned left shoulder and left upper back, dull discomfort. She was given a full dose of aspirin (325) put on a heparin drip and repeat cardiac markers were ordered. [facility] in [place] was contacted regarding a possible transfer, so has to undergo cardiac catheterization. Prior to her transfer, she was brought upstairs and underwent dialysis. During dialysis, her blood pressure peaked to 215 systolic and she was given 10 mg, labetalol. Elevated all help bring her systolic down 175. During dialysis she stated her left shoulder and left upper back, dull discomfort had resolved. Prior to discharge, she was given 5 mg of a second labe talol dose. A fourth troponin was taken and increased to 7.9 to from previous of 5.1. Patient continued to state she had no chest pain or difficulty breathing. 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 Victoria. DISCHARGE MEDICATIONS: Please see below. ALLERGIES: Please see below. PHYSICAL EXAMINATION ON DISCHARGE: VITAL SIGNS: Please see below. GENERAL: Appears stated age. In moderate distress due to back and shoulder pain, recent emesis. HEENT: Right eyeinjected sclera, left eye ptosis NECK: Supple, no lymphadenopathy CARDIOVASCULAR EXAMINATION: Tachycardic, regular rhythm, S1, S2 normal with no murmurs or rubs. No tenderness to anterior chest palpation and this did not reproduce chest pain that she felt earlier. RESPIRATORY EXAMINATION: Clear to auscultation bilaterally with mildly diminished tidal volume. No audible wheezes, crackles or rhonchi ABDOMINAL EXAMINATION:. Normoactive bowel sounds present all 4 quadrants. No tenderness to palpation. No masses palpated EXTREMITIES: 2+ radial and posterior tibial pulses bilaterally. On inspection of lower extremities, skin appeared to be bronzed SKIN: Bronzing of the skin bilateral lower extremities NEUROLOGICAL EXAMINATION: Alert and oriented 3. Sensation to light touch intact upper extremity, lower externa bilaterally. 5 out of 5 muscle strength testing upper extremity, lower extremity bilaterally LABORATORY DATA: Please see below. IMAGING: Chest x-ray, 12/14- showed interstitial infiltrates, worsened from the prior study. Chronic cardiomegaly. Angiography CT, 12/14 showed no pulmonary emboli. No aortic dissection. Abnormal lungs. Consistent with pulmonary edema. Viral pneumonia cannot be excluded. Mild bilateral pleural effusions. Additional findings as described. PROGNOSIS: Poor ACTIVITY: [As tolerated]. DIET: As tolerated DISCHARGE INSTRUCTIONS & OUTPATIENT FOLLOW-UP: -Patient to be transferred to [facility] for evaluation with cardiac catheterization capability. -Patient should follow up with her primary care physician in 7-10 days. -Patient should also follow up with her primary athletic training internship, Dr. Victoria in [place] within 2-3 weeks. -If patient's symptoms from today were to worsen after discharge from [place] or if she experiences an emergent medical issue, she should return to the emerge ncy DISCHARGE CONDITION: [Stable]. TIME SPENT ON DISCHARGE: 35 minutes. Vital Signs/I&Os Vital Signs Date Time Temp Pulse Resp B/P (MAP) Pulse Ox O2 Delivery O2 Flow Rate FiO2 12/14/18 11:53 82 215/102 12/14/18 08:45 97.6 17 99 12/14/18 01:30 Room Air Laboratory Data Labs 24H Laboratory Tests 2 12/13/18 19:48: Immature Granulocyte % (Auto) 0.9, White Blood Count 9.2, Red Blood Count 4.27, Hemoglobin 12.6, Hematocrit 39.9, Mean Corpuscular Volume 93.4, Mean Corpuscular Hemoglobin 29.5, Mean Corpuscular Hemoglobin Concent 31.6L, Red Cell Distribution Width 13.5, Platelet Count 168, Neutrophils (%) (Auto) 83.2H, Lymphocytes (%) (Auto) 11.5L, Monocytes (%) (Auto) 2.5, Eosinophils (%) (Auto) 0.9, Basophils (%) (Auto) 1.0, Neutrophils # (Auto) 7.6, Lymphocytes # (Auto) 1.1L, Monocytes # (Auto) 0.2, Eosinophils # (Auto) 0.1, Basophils # (Auto) 0.1, Nucleated Red Blood Cells % (auto) 0.0, Prothrombin Time 12.9, Prothromb Time International Ratio 1.00, Activated Partial Thromboplast Time 33.8, Anion Gap 13, Glomerular Filtration Rate 9.7L, Calcium Level 9.2, Aspartate Amino Transf (AST/SGOT) 33, Alanine Aminotransferase (ALT/SGPT) 23, Alkaline Phosphatase 56, Total Bilirubin 0.3, Direct Bilirubin 0.1, Total Creatine Kinase 109, Creatine Kinase MB 2.0, Creatine Kinase MB Relative Index 1.83, Troponin I 0.03, C- Reactive Protein, Quantitative 0.30, CC-Bhn-R-Type Natriuretic Peptide 01616T, Total Protein 7.1, Albumin 3.5, Albumin/Globulin Ratio 0.97L, Lipase 515H, Thyroid Stimulating Hormone (TSH) 0.197L 12/13/18 22:52: Total Creatine Kinase 150, Creatine Kinase MB 6.1H, Creatine Kinase MB Relative Index 4.07H, Troponin I 0.72#H 12/14/18 04:32: Bedside Glucose (Misc Panel) 166H 12/14/18 05:18: Troponin I 5.10#*H 12/14/18 09:15: Total Creatine Kinase 312#H, Creatine Kinase MB 44.3H, Creatine Kinase MB Relative Index 14.20H, Troponin I 7.92#*H 12/14/18 09:46: Activated Partial Thromboplast Time 33.4 CBC/BMP Laboratory Tests 12/13/18 19:48 Red Blood Count 4.27, Mean Corpuscular Volume 93.4, Mean Corpuscular Hemoglobin 29.5, Mean Corpuscular Hemoglobin Concent 31.6 L, Red Cell Distribution Width 13.5, Neutrophils (%) (Auto) 83.2 H, Lymphocytes (%) (Auto) 11.5 L, Monocytes (%) (Auto) 2.5, Eosinophils (%) (Auto) 0.9, Basophils (%) (Auto) 1.0, Neutrophils # (Auto) 7.6, Lymphocytes # (Auto) 1.1 L, Monocytes # (Auto) 0.2, Eosinophils # (Auto) 0.1, Basophils # (Auto) 0.1 FSBS Laboratory Tests Test 12/14/18 04:32 Range/Units Bedside Glucose (Misc Panel) 166 80-115 MG/DL Microbiology Microbiology 12/13/18 Blood Culture, Received Pending 12/13/18 Blood Culture, Received Pending Discharge Medications Scheduled Aspirin (Aspirin EC) 81 Mg Tab, 81 MG PO DAILY, (Reported) Atorvastatin Calcium (Atorvastatin Calcium) 20 Mg Tab, 20 MG PO QHS, (Reported) Bimatoprost (Lumigan) 50 Drop/2.5 Ml Ana Paula, 1 DROP OD QHS, (Reported) Brimonidine Tartrate (Brimonidine Tartrate) 0.2 % Ana Paula, 1 DROP OU TID, (Reported) Brinzolamide (Azopt) 1 % Loraine, 1 DROP OU BID, (Reported) Carvedilol (Carvedilol) 3.125 Mg Tab, 3.125 MG PO BID, (Reported) TAKES IF BP >140 Cholecalciferol (Vitamin D3) (Vitamin D3) 50,000 Unit Cap, 50,000 UNIT PO 1XMONTH, (Reported) Folic Acid (Folic Acid) 1 Mg Tab, 1 MG PO DAILY, (Reported) Folic Acid/Vit B Complex and C (Jenni-Tres Tablet) 1 Tab Tab, 1 TAB PO DAILY, (Reported) Insulin Glargine,Hum.rec.anlog (Lantus Solostar) 100 Unit/Ml Inj, 5 UNITS SC QHS, (Reported) Insulin Lispro (Humalog Kwikpen U-100) 100 Unit/Ml Inj, 0 SC AC, (Reported) PER SLIDING SCALE Lanthanum Carbonate (Fosrenol) 1,000 Mg Tab.chew, 1,000 MG PO DAILY, (Reported) WITH BIGGEST MEAL Prednisolone Acetate (Pred Forte 1% Opth Susp) 1 % Loraine, 1 DROP OS DAILY, (Reported) Prednisone (Prednisone) 5 Mg Tab, 5 MG PO DAILY, (Reported) Timolol Maleate (Timolol Maleate) 0.5 % Ana Paula, 1 DROP OU BID, (Reported) Scheduled PRN Nitroglycerin (Nitrostat) 0.4 Mg Subl, 0.4 MG SL NITRO PRN for CHEST PAIN, (Reported) Allergies Coded Allergies: No Known Allergies (Unverified , 12/10/18) Attending Note Attending Note I saw and examined the patient. I agree with the finding and the plan of care as documented in the resident's note. I spent 40 mins in the unit counselling the patient and her family, Calling the transfer center, speaking to her own athletic training internship who was accepting her in transfer, arranging her hemodialysis prior to discharge and coordinating the discharge. Patient is having an acute NSTEMI so transferred to higher level of care [facility] for cardiac cath and further management of AMI. PREETHI BLOCK PGY-1 Dec 14, 2018 14:56 ARON JOHNSON MD Dec 14, 2018 21:38
--- NOTE | 2018-12-15 09:43 | ECGEPIP ---
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
--- NOTE | 2018-12-15 16:22 | CR ---
DATE OF CONSULTATION: 12/14/2018 HISTORY OF PRESENT ILLNESS: Ms. Johnson is a 68-year-old female with a history of end-stage renal disease, on hemodialysis as well as coronary artery disease with multiple stent placements who presented to the [facility] emergency room with complaint of chest pain. She stated that her chest pain was present in ER and lasted approximately 30 minutes. She had noted that the pain had radiated down her left arm and to her back. She stated that the chest pain was associated with shortness of breath. In the Emergency Room the [place] [address] as well as imaging, both a chest x-ray and CT angiography that demonstrated likely pulmonary edema secondary to volume overload from heart failure. The patient subsequently received a troponin which were mildly elevated at the time of 0.03. On repeats her troponin elevated 0.72 and subsequently 5.10. The patient received and EKG which demonstrates some ST changes as well as T- wave depression in lead I, in AVL suggesting possible lateral ischemia. It was felt that this may likely be secondary to the patient's volume overload and demand ischemia secondary to her congestive heart failure (CHF). The primary team contacted [facility] as the patient would likely benefit from a catheterization. The plan is to dialyze the patient to achieve some more acceptable volume status and transfer the patient to [facility] for possible catheterization and management of her chest pain. In the meantime, the patient has been started on heparin drip. The patient was seen in dialysis this morning at bedside where she is receiving dialysis from her right internal jugular vein catheter. ALLERGIES: No known allergies. PAST MEDICAL HISTORY: 1. End-stage renal disease, on hemodialysis Friday, Friday, Friday. 2. Coronary artery disease with multiple stent placements. 3. Bueno's palsy. 4. Hyperlipidemia. 5. Poorly controlled hypertension. PAST SURGICAL HISTORY: 1. Right arteriovenous (AV) fistula creation. 2. Left internal jugular vein catheter. SOCIAL HISTORY: Patient denies any illicit drug use. She denies any IV drug use. She denies any smoking or tobacco use. Patient does admit to occasional alcohol use. FAMILY HISTORY: Patient denies any significant family history that she is aware of. INPATIENT MEDICATIONS: - heparin drip - folic acid 1 mg daily - Lanthanum carbonate 1000 mg daily - prednisolone 1 drop daily OS - prednisone 5 mg daily by mouth - Zofran 4 mg every 4 hours as needed - hydralazine 10 mg every 4 hours - nitroglycerin every 6 hours topical - morphine sulfate 4 mg every 3 hours as needed - acetaminophen 200 mg every 4 hours as needed for pain - magnesium hydroxide 30 mg daily - Mylanta 10 mg daily - Colace 100 mg twice a day - Coreg 3.125 mg twice a day REVIEW OF SYSTEMS: CONSTITUTIONAL: Patient denies any fevers, chills, night sweats. She denies any fatigue. She denies any unintentional weight loss or weight gain. EYES: Patient denies any vision changes. SKIN: Patient denies any rashes, lesions, she denies any bruising. PULMONARY: Patient currently denies any shortness of breath but states that upon admission she was shortness of breath. CARDIOVASCULAR: Patient currently denies any chest pain, although she states that on admission she had chest pain which lasted approximately 30 minutes. GASTROINTESTINAL: Patient denies any nausea, vomiting, diarrhea or constipation. She denies any abdominal pain. She denies any blood in her stool. She denies any dark tarry stools. : Patient receives dialysis Friday, Friday, Friday for end-stage renal disease. HEMATOLOGIC: Patient denies any easy bruising or bleeding. ENDOCRINE: Patient denies any hematology or cold intolerance. MUSCULOSKELETAL: Patient denies any neck pain, back pain, or muscle pain in general. PSYCHIATRIC: Patient denies any feelings of anxiety or depression. PHYSICAL EXAMINATION: GENERAL: Patient is awake, alert. She is oriented. She does not appear in any acute distress. She is lying in bed, currently recieving dialysis through her right internal jugular vein catheter. EYES: Patient has ptosis of her left eye secondary to Bueno's palsy. NECK: No jugular venous distention. Right sided internal jugular vein catheter present and currently accessed and receiving hemodialysis. CARDIOVASCULAR: Normal S1, S2, regular rate and rhythm. No clicks, rubs or murmurs auscultated. PULMONARY: Good respiratory effort. Crackles auscultated on examination. EXTREMITIES: Normal pulses throughout. No significant edema in bilateral lower extremities. PSYCHIATRIC: Mood and affect appear appropriate. LABORATORY DATA: Hematology: (From 12/13/2018). Sodium 143, potassium 4.8, chloride 108, carbon dioxide 22. BUN 35, creatinine 4.76. Glucose 229. BNP 69887. Troponin 0.72. Repeat troponin 5.10 and subsequent troponin 7.92. IMAGING: (from 12/13/2018). Chest x-ray demonstrating interstitial infiltrates, worsened from her prior study and chronic cardiomegaly. Angiography CT from 12/13/2018 demonstrating no pulmonary emboli noted or dissection. However, consistent with pulmonary edema with possible viral pneumonia, mild bilateral pleural effusions. Abdominal and pelvic CT from 12/13/2018 demonstrated unremarkable pancreas, diffuse mild thickening of the small bowel. Mild enteritis cannot be excluded. Hyperdense lesion in the upper pole of the right kidney with no change from prior. EKG findings demonstrated some nonspecific ST changes and T-wave depressions in leads I and AVL. ASSESSMENT AND PLAN: 1. Elevated troponins secondary to [id number] myocardial infarction (NSTEMI) versus increased demand from CHF: Patient had recently presented with chest pain. She does have some mild ST changes and T-wave depressions on EKG. The patient was placed on heparin drip per the primary team. [facility] was contacted in regards to possible transfer for heart catheterization. The plan is for the patient to receive her hemodialysis to achieve better volume status, at which point the patient will be transferred to [facility] for heart catheterization and workup of a possible NSTEMI. 2. End-stage renal disease, on hemodialysis Friday, Friday, Friday: She was found to have some pulmonary vascular congestion likely secondary to NSTEMI induced CHF exacerbation causing shortness of breath. The patient will receive hemodialysis today. She is currently receiving it through her right-sided internal jugular vein catheter. The plan is for her to complete dialysis at [facility] today and transfer to [facility] for further workup of her chest pain. 3. Hypertension: Patient came in with hypertensive urgency with a blood pressure of 227/113. Arguably hypertensive emergency as the patient does have elevation in her troponin as well. Her blood pressure has come down with IV hydralazine and pain control. She is currently being dialyzed. Will likely relieve some of her hypertension with removal of fluid. 4. Chronic mineral bone disease. Patient is currently receiving Fosrenol. Will continue. My faculty preceptor for this patient encounter was physically present during the encounter and was fully available. All aspects of the patient interview, examination, medical decision making process, and medical care plan development were reviewed and approved by the faculty preceptor. The faculty preceptor is aware and concurs with the plan as stated in the body of this note and will attest to such by his/her co-signature. ALETA
[2019-01-06] MEDS ORDERED: PLAV1TAB2 PO (15:03)
[2019-04-01] MEDS ORDERED: HYDR-3910 PO (10:15)
[2019-04-01] MEDS ORDERED: CARV3.12 PO (10:15)
== END 2018-12-14 14:55 | disposition short-term general hospital (02) | DRG 280 ==
LOC: M ED 19:24 → M ED INP 12-14 00:44 → M PCU 12-14 02:28
PROVIDERS: ADMIT Internal Medicine; ATTEND Internal Medicine Nephrology
DX: I21.4 Non-ST elevation (NSTEMI) myocardial infarction (principal); N18.6 End stage renal disease; I12.0 Hypertensive chronic kidney disease with stage 5 chronic kidney disease or end stage renal disease; I16.0 Hypertensive urgency; K21.9 Gastro-esophageal reflux disease without esophagitis; Z79.52 Long term (current) use of systemic steroids; I34.0 Nonrheumatic mitral (valve) insufficiency; M06.9 Rheumatoid arthritis, unspecified; E78.5 Hyperlipidemia, unspecified; H40.9 Unspecified glaucoma; Z79.4 Long term (current) use of insulin; I25.2 Old myocardial infarction; Z95.2 Presence of prosthetic heart valve; Z79.82 Long term (current) use of aspirin; Z79.899 Other long term (current) drug therapy; I25.10 Atherosclerotic heart disease of native coronary artery without angina pectoris

== ENCOUNTER → 2019-01-07 | Outpatient (CLI) | payer MEDICARE ==
[~2019-01-07] MED LIST changes: +BUPIVACAINE HCL 0.5% 10 ML VIAL As Ordered ONE; +CARV6.25 PO; +HYDR-3910 PO; +HYDR-3911 PO; +HYDR50TA PO; +ISOS30TAB PO; +ISOVUE-300 61% 50ML VIAL (Q9967) As Ordered ONE; +LIDOCAINE 2% MDV 20 ML VIAL As Ordered ONE; +MIDAZOLAM INJ 2 MG/2 ML VIAL (J2250) As Ordered ONE; +OXYC1TAB23 PO; +PLAV1TAB2 PO; +VELP5CHW PO; +fentaNYL 100 MCG/2 ML INJECTION (J3010) As Ordered ONE
[2019-01-07 13:01] VITALS: BP 162/74
--- NOTE | 2019-01-30 09:37 | REPIR ---
DATE OF PROCEDURE: 01/07/2019 ATTENDING SURGEON: Dr. Tessa See HIDE SPLITTER: Harry Lombardi and Gale Macias PREOPERATIVE DIAGNOSES: End-stage renal disease, non maturing right brachiocephalic autogenous arteriovenous fistula. POSTPROCEDURE DIAGNOSES: End-stage renal disease, non maturing right brachiocephalic autogenous arteriovenous fistula. PROCEDURE: Right brachiocephalic autogenous arteriovenous fistulogram. INDICATION: The patient is a 68-year-old female who underwent creation of a right brachiocephalic arteriovenous fistula which is non maturing. The patient will undergo a fistulogram with possible angioplasty, stent and/or atherectomy. ANESTHESIA: Local with 2 mL of 2% lidocaine mixed with 0.5% Marcaine. FLUORO TIME: 0.2 minutes. CONTRAST: 4 mL of Isovue-300 HEPARIN: None. COMPLICATIONS: None. DRAINS: None. SPECIMENS: None. IMPLANTS: None. PROCEDURE: The patient was taken to the angiography suite, placed supine on the angiography room table and then prepped and draped in a standard surgical fashion. The right brachiocephalic arteriovenous fistula was cannulated and a fistulogram performed showing the main outflow through the basilic vein with the cephalic vein occluding shortly after the antecubital fossa. Catheters and wires were removed. The sheath was removed and manual compression applied at the puncture site for hemostasis. Dressings were then applied. The patient tolerated procedure well. All instrument, sponge and needle counts were correct at the end of the case. There were no complications. Dr. See was present for and directed the entire case. The patient was transferred to the holding area and subsequently discharged in stable condition.
== END ==
LOC: M IRPRO 11:03
PROVIDERS: ATTEND Surgery Vascular Surgery
DX: T82.898A Other specified complication of vascular prosthetic devices, implants and grafts, initial encounter (principal); N18.6 End stage renal disease; I25.10 Atherosclerotic heart disease of native coronary artery without angina pectoris; M06.9 Rheumatoid arthritis, unspecified; E78.5 Hyperlipidemia, unspecified; E11.22 Type 2 diabetes mellitus with diabetic chronic kidney disease; I12.0 Hypertensive chronic kidney disease with stage 5 chronic kidney disease or end stage renal disease; H40.9 Unspecified glaucoma; X58.XXXA Exposure to other specified factors, initial encounter; Y93.9 Activity, unspecified; Y92.9 Unspecified place or not applicable; Y99.8 Other external cause status
CPT/HCPCS: 36901; C1894; Q9967

== ENCOUNTER 2019-03-08 02:27 | Inpatient (IN) | payer MEDICARE ==
[~2019-03-08] VITALS: Ht 147.3 cm; Wt 48.8 kg
[2019-03-08] VITALS (69 sets, daily range): BP systolic 94–180; BP diastolic 55–80
[~2019-03-08 02:27] MED LIST changes: -BISO5TAB14 PO; +BISO5TAB9 PO; -BUPIVACAINE HCL 0.5% 10 ML VIAL As Ordered ONE; -CARV6.25 PO; +FENO145T13 PO; -FENO145T7 PO; -HYDR-3910 PO; -HYDR-3911 PO; -HYDR50TA PO; -ISOS30TAB PO; -ISOVUE-300 61% 50ML VIAL (Q9967) As Ordered ONE; -LIDOCAINE 2% MDV 20 ML VIAL As Ordered ONE; -MIDAZOLAM INJ 2 MG/2 ML VIAL (J2250) As Ordered ONE; -OXYC1TAB23 PO; -VELP5CHW PO; -fentaNYL 100 MCG/2 ML INJECTION (J3010) As Ordered ONE
[2019-03-08 03:09] LABS: BASO # 0.1 10^3/uL (0.0-0.2); BASO % 0.6 % (0.0-1.0); EOS % 0.5 % (0.0-3.0); HEMATOCRIT 34.8 % (36.0-47.0); HEMOGLOBIN 11.1 g/dl (12.0-15.5); LYMPH # 1.2 10^3/uL (1.5-5.0); LYMPH % 13.3 % (24.0-44.0); MEAN CORPUSCULAR HEMOGLOBIN 29.5 pg (27.0-33.0); MEAN CORPUSCULAR HGB CONC 31.9 g/dl (32.0-36.5); MEAN CORPUSCULAR VOLUME 92.6 fl (80.0-96.0); MONO # 0.3 10^3/uL (0.0-0.8); NEUTROPHILS # 7.2 10^3/uL (1.5-8.5); NEUTROPHILS % 81.7 % (36.0-66.0); PLATELET COUNT, AUTOMATED 169 10^3/uL (150-450); RED BLOOD COUNT 3.76 10^6/uL (4.00-5.40); WHITE BLOOD COUNT 8.8 10^3/uL (4.0-10.0)
[2019-03-08] MEDS ORDERED: NITROGLYCERIN IN D5W 25MG/250ML (100MCG/ML) As Ordered ONE (03:09)
[2019-03-08] MEDS ORDERED: FUROSEMIDE 100 MG/10 ML VIAL (J1940) IV ONE (03:15)
[2019-03-08] MEDS ORDERED: NITROGLYCERIN 2% OINT 1 GM *U/D* PKT TOP ONE (03:15)
[2019-03-08] MEDS ORDERED: NITROGLYCERIN/D5W 100MCG/ML 25 MG in IV 1 EA IV SCH (03:15)
[2019-03-08 03:19] LABS: INR 1.06; PROTHROMBIN TIME 13.5 SECONDS (11.8-14.0)
[2019-03-08 03:36] LABS: ALBUMIN 3.4 GM/DL (3.2-5.2); ALT/SGPT 21 U/L (12-78); BILIRUBIN,DIRECT 0.1 MG/DL (0.0-0.2); BILIRUBIN,TOTAL 0.4 MG/DL (0.2-1.0); CPK CREATINE PHOSPHOKINASE 47 U/L (26-192); LIPASE 430 U/L (73-393); MB/CK RELATIVE INDEX 2.13 (< OR =4); TOTAL PROTEIN 6.7 GM/DL (6.4-8.2); TROPONIN I < 0.02 NG/ML (< 0.10)
[2019-03-08] MEDS ORDERED: hydrALAZINE INJ 20 MG/ML VIAL IV STA ×2 (03:41→03:54)
[2019-03-08] MEDS ORDERED: hydrALAZINE INJ 20 MG/ML VIAL As Ordered ONE (03:42)
[2019-03-08] MEDS ORDERED: ACETAMINOPHEN TAB 650MG DOSE (2X325MG) PO PRN (03:45)
--- NOTE | 2019-03-08 03:49 | HPEPDOC ---
General Date of Admission 03/08/19 Date of Service: Mar 08, 2019 Primary Care Physician: GENE REZA M.D. Chief Complaint The patient is a 68-year-old female admitted with a reason for visit of Chest Pain. Source: Patient, Family Exam Limitations: Clinical conditions Severity: Severe Associated Symptoms: Chest Pain, Diaphoresis History of Present Illness This is 68 years old white female. She has a past medical history of noncompliance to diet. Also history of end-stage renal disease on hemodialysis, was recently admitted and discharged from this hospital 12/14/2018 after being treated for acute pulmonary edema. Patient again presented this time with chief complaints of shortness of breath, left-sided chest pain, sharp in nature, radiating to the back, persistent relieved with the nitroglycerin, no association with diet or ambulation. Patient also complained of diaphoresis. Took 2 nitroglycerin with some relief and came to ER. Patient had her last dialysis done on Friday. Patient has been started on a nitroglycerin drip in ED to reduce blood pressure and decrease the preload until the dialysis is arranged. Limited history. Secondary to patient's clinical status and gentleman accompanying her does not know much history Home Medications Scheduled Aspirin (Aspirin EC) 81 Mg Tab, 81 MG PO DAILY, (Reported) Atorvastatin Calcium (Atorvastatin Calcium) 20 Mg Tab, 20 MG PO QHS, (Reported) Bimatoprost (Lumigan) 50 Drop/2.5 Ml Ana Paula, 1 DROP OD QHS, (Reported) Brimonidine Tartrate (Brimonidine Tartrate) 0.2 % Ana Paula, 1 DROP OU TID, (Reported) Brinzolamide (Azopt) 1 % Loraine, 1 DROP OU BID, (Reported) Carvedilol (Carvedilol) 3.125 Mg Tab, 3.125 MG PO BID, (Reported) TAKES IF BP >140 Cholecalciferol (Vitamin D3) (Vitamin D3) 50,000 Unit Cap, 50,000 UNIT PO 1XMONTH, (Reported) Clopidogrel Bisulfate (Plavix) 75 Mg Tablet, 75 MG PO DAILY, (Reported) Folic Acid (Folic Acid) 1 Mg Tab, 1 MG PO DAILY, (Reported) Folic Acid/Vit B Complex and C (Jenni-Tres Tablet) 1 Tab Tab, 1 TAB PO DAILY, (Reported) Hydralazine HCl (Hydralazine HCl) 25 Mg Tablet, 25 MG PO BID, (Reported) Insulin Glargine,Hum.rec.anlog (Lantus Solostar) 100 Unit/Ml Inj, 6 UNITS SC DAILY, (Reported) Insulin Lispro (Humalog Kwikpen U-100) 100 Unit/Ml Inj, 1 DOSE SC AC, (Reported) SLIDING SCALE PER HOME REGIMEN Isosorbide Dinitrate (Isosorbide Dinitrate) 30 Mg Tablet, 30 MG PO BID, (Reported) Prednisolone Acetate (Pred Forte 1% Opth Susp) 1 % Loraine, 1 DROP OS QHS, (Reported) Prednisone (Prednisone) 5 Mg Tab, 5 MG PO DAILY, (Reported) Sucroferric Oxyhydroxide (Velphoro) 500 Mg Tab.chew, 500 MG PO QPM, (Reported) AT DINNER Timolol Maleate (Timolol Maleate) 0.5 % Ana Paula, 1 DROP OU BID, (Reported) Scheduled PRN Nitroglycerin (Nitrostat) 0.4 Mg Subl, 0.4 MG SL NITRO PRN for CHEST PAIN, (Reported) Allergies Coded Allergies: No Known Allergies (Unverified , 12/10/18) Past Medical History Medical History End-stage renal disease on dialysis, bladder suspension, history of , A V fistula, Bueno's palsy, left eye decreased vision Surgical History AV fistula Social History * Smoker: Denies Alcohol: Denies Drugs: denies A-FIB/CHADSVASC A-FIB History Current/History of A-Fib/PAF?: No Review of Systems Constitutional: Reports: Other (apheresis) Eyes: Denies: Pain, Vision change, Conjunctivae inflammation, Eyelid inflammation, Redness, Other ENT: Denies: Head Aches, Ear Pain, Dysphagia, Sinus Congestion, Post Nasal Drip, Sore Throat, Epistaxis, Other Symptoms Pulmonary: Reports: Dyspnea Cardiovascular: Reports: Chest Pain Gastrointestinal: Denies: Nausea, Vomiting, Abdominal Pain, Diarrhea, Constipation, Melena, Hematochezia, Other Symptoms Genitourinary: Denies: Dysuria, Frequency, Incontinence, Hematuria, Retention, Other Symptoms Hematologic: Denies: Bruising, Bleeding Excessively, Petecchia, Purpura, Enlarged Lymph Nodes, Other Hematologic Endocrine: Denies: Polydipsia, Polyphagia, Polyuria, Heat Intolerance, Cold Intolerance, Other Endocrine Sx Musculoskeletal: Denies: Neck Pain, Back Pain, Shoulder Pain, Arm Pain, Hand Pain, Leg Pain, Foot Pain, Joint Pain, Muscle Pain, Spasms, Other Symptoms Neurological: Denies: Weakness, Numbness, Incoordination, Change in speech, Confusion, Seizures, Other Symptoms Psych: Denies: Mood Normal, Anxiety, Depression, Memory Issues, Thoughts of Self Harm, Anger, Thoughts of Harming Other, Other Psych Physical Examination General Exam: Positive: Severe Distress, Other (awake, alert, but in severe distress) Eye Exam: Positive: PERRLA, Conjunctiva & lids normal ENT Exam: Positive: Atraumatic, Mucous membr. moist/pink Neck Exam: Positive: Supple, JVD (. Positive JVD) Chest Exam: Positive: Rales (, bilateral audible rales) Heart Exam: Positive: Rate Normal, Normal S1, Normal S2 Abdomen Exam: Positive: Normal bowel sounds Extremity Exam: Positive: Edema (bipedal edema positive) Skin Exam: Positive: Nl turgor and temperature Neuro Exam: Positive: Strength at 5/5 X4 ext, Sensation Intact Psych Exam: Positive: Anxiety Vital Signs Vital Signs Date Time Temp Pulse Resp B/P (MAP) Pulse Ox O2 Delivery O2 Flow Rate FiO2 03/08/19 03:17 234/119 03/08/19 03:05 96.9 03/08/19 02:57 106 93 03/08/19 02:52 20 Nasal Cannula 4.0 Laboratory Data Labs 24H Laboratory Tests 2 03/08/19 03:00: Immature Granulocyte % (Auto) 0.9, White Blood Count 8.8, Red Blood Count 3.76L, Hemoglobin 11.1L, Hematocrit 34.8L, Mean Corpuscular Volume 92.6, Mean Corpuscular Hemoglobin 29.5, Mean Corpuscular Hemoglobin Concent 31.9L, Red Cell Distribution Width 13.0, Platelet Count 169, Neutrophils (%) (Auto) 81.7H, Lymphocytes (%) (Auto) 13.3L, Monocytes (%) (Auto) 3.0, Eosinophils (%) (Auto) 0.5, Basophils (%) (Auto) 0.6, Neutrophils # (Auto) 7.2, Lymphocytes # (Auto) 1.2L, Monocytes # (Auto) 0.3, Eosinophils # (Auto) 0.0, Basophils # (Auto) 0.1, Nucleated Red Blood Cells % (auto) 0.0, Prothrombin Time 13.5, Prothromb Time International Ratio 1.06, Aspartate Amino Transf (AST/SGOT) 23, Alanine Aminotransferase (ALT/SGPT) 21, Alkaline Phosphatase 51, Total Bilirubin 0.4, Direct Bilirubin 0.1, Total Creatine Kinase 47, Creatine Kinase MB 1.0, Creatine Kinase MB Relative Index 2.13, Troponin I < 0.02, Total Protein 6.7, Albumin 3.4, Albumin/Globulin Ratio 1.03, Lipase 430H CBC/BMP Laboratory Tests 03/08/19 03:00 Red Blood Count 3.76 L, Mean Corpuscular Volume 92.6, Mean Corpuscular Hemoglobin 29.5, Mean Corpuscular Hemoglobin Concent 31.9 L, Red Cell Distribution Width 13.0, Neutrophils (%) (Auto) 81.7 H, Lymphocytes (%) (Auto) 13.3 L, Monocytes (%) (Auto) 3.0, Eosinophils (%) (Auto) 0.5, Basophils (%) (Auto) 0.6, Neutrophils # (Auto) 7.2, Lymphocytes # (Auto) 1.2 L, Monocytes # (Auto) 0.3, Eosinophils # (Auto) 0.0, Basophils # (Auto) 0.1 Problems (1) Pulmonary edema Status: Acute Problem Text: This 8 years old white female with past medical history of end- stage renal disease on hemodialysis. She is noncompliant to her diet and was recently admitted with similar complaint. Again, this time she presented with hypertensive emergency, chest pain, and acute pulmonary edema. In ED, patient did receive 1 dose of Lasix and has been started on nitroglycerin drip to reduce preload and also to correct her blood pressure Admit patient to ICU for close monitoring Telemetry Continue nitroglycerin drip titrated to bring systolic blood pressure under 150 and till patient is comfortable Will call nephrology consultation for emergency dialysis Nothing by mouth in the meantime Bed rest Heparin for DVT prophylaxis Continue by mouth meds (2) Hypertensive urgency Status: Acute Problem Text: Hypertensive emergency, most likely secondary to volume overload Has been started on nitro drip to control blood pressure to the dialysis performed Continue home meds Close monitoring (3) ESRD (end stage renal disease) on dialysis Status: Acute Problem Text: As above Plan / VTE VTE Prophylaxis Ordered?: Yes BASILIO MCCANN MD Mar 08, 2019 03:49
[2019-03-08 03:53] LABS: ABG BASE EXCESS -2.7 (-2.0-2.0); ABG HCO3 23.2 MEQ/L (22.0-26.0); ABG O2 SATURATION 99.1 % (95.0-99.0); ABG PARTIAL PRESSURE CO2 44.5 mmHg (35.0-45.0); ABG PARTIAL PRESSURE O2 181.3 mmHg (75.0-100.0); ABG STANDARD HCO3 22.3 MEQ/L (22.0-26.0); ABG TOTAL CO2 24.6 MEQ/L (23.0-31.0); ABG pH (ARTERIAL) 7.335 UNITS (7.350-7.450)
[2019-03-08] MEDS ORDERED: ISOS30TAB PO (04:11)
[2019-03-08] MEDS ORDERED: HYDR-3910 PO (04:11)
[2019-03-08] MEDS ORDERED: VELP5CHW PO (04:11)
[2019-03-08 05:45] LABS: BLOOD UREA NITROGEN 49 MG/DL (7-18); CARBON DIOXIDE LEVEL 23 MEQ/L (21-32); CHLORIDE LEVEL 109 MEQ/L (98-107); CREATININE FOR GFR 4.61 MG/DL (0.55-1.30); GLOMERULAR FILTRATION RATE 10.1 (>45); GLUCOSE, FASTING 196 MG/DL (70-100); POTASSIUM SERUM 4.3 MEQ/L (3.5-5.1); SODIUM LEVEL 142 MEQ/L (136-145)
--- NOTE | 2019-03-08 05:46 | ECGEPIP ---
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
--- NOTE | 2019-03-08 08:00 | REP ---
Portable chest x-ray: Single view. History: Chest pain. Comparison study: December 13, 2018. Findings: Monitoring electrodes overlie the chest. There is a left-sided tunnel catheter in place with its tip in the expected location of the superior vena cava. There are surgical clips in the soft tissues of the left upper arm. Oxygen tubing is seen. There is cardiomegaly, vascular congestion, and severe diffuse interstitial edema pattern again noted similar to the appearance December 13, 2018. There is very slight blunting of the lateral pleural angles. There is a diastatic unhealed fracture of the distal clavicle on the right. Impression: CHF pattern with severe diffuse interstitial pulmonary edema. Electronically Signed by Juan Carlos Hodgosn MD 03/08/2019 07:52 A
--- NOTE | 2019-03-08 08:25 | ECGEPIP ---
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
[2019-03-08] MEDS ORDERED: DEXTROSE 50% 50 ML SYRINGE IV PRN (08:30)
[2019-03-08] MEDS ORDERED: GLUCAGON FOR INJ 1 MG VIAL (J1610) SC PRN (08:30)
[2019-03-08] MEDS ORDERED: GLUCOSE 4 GM CHEW TABLET PO PRN (08:30)
[2019-03-08] MEDS: HEPARIN SOD (PORCINE) 5000 UNITS/ML VIAL SQ SCH ×2 (08:48→20:57)
[2019-03-08] MEDS: NITROGLYCERIN/D5W 100MCG/ML 25 MG in IV 1 EA IV SCH ×2 (08:50→18:13)
--- NOTE | 2019-03-08 09:23 | IPNPDOC ---
Date Seen The patient was seen on 03/08/19. Progress Note SUBJECTIVE: Patient is a 68-year-old white female seen for F/U after admission for SOB secondary to pulmonary edema as well as Hypertensive Urgency. Pt was seen this morning and reported improvement in her symptoms since last night. She reports a decrease in her chest pain down to 1/10 from an initial 9/10. She denies any SOB, nausea/vomiting or dizziness. Pt explained she was walking around her home yesterday evening when she felt she "couldn't breath." She had a previous admission to [facility] on 12/14/18 for Pulmonary Edema. She has ongoing dialysis for her ESRD (M,W,F); she went on Friday (03/05) and had no problems. She has a right sided A/V fistula placed that is planned to be evaluated at the end of the month for potential dialysis use. Additionally she explains her BP has been elevated in the evenings for the past month, averaging around 188-198 Systolic. During those episodes she would take 1-2 pills of Nitroglycerin which would bring her down to around 144-154. She also explains last month she was seen for a coronary angiogram which showed partial occlusion of a previously stented artery, as well as formation of collaterals. Patient also suffers from diabetes which she claims is well controlled. OBJECTIVE: PHYSICAL EXAMINATION: VITAL SIGNS: Please see below. GENERAL: Patient is lying in bed, cooperative and in no acute distress. HEENT: Normocephalic, atraumatic. Patient appears to have some facial swelling. Her left eyelid is slightly swollen. Conjunctival injection noted b/l, anicteric. She is slightly hard of hearing. Trachea is midline. CARDIOVASCULAR: Normal S1, S2. No murmurs noted. Patient has a left sided he modialysis catheter placed. RESPIRATORY: B/L lower lobe rales. No wheezing or rhonchi noted. ABDOMINAL: No lesions noted. No pain upon palpation, rebound tenderness, guarding or rigidity. EXTREMITIES: Patient has 2/4 pedal pulses b/l. Normal capillary refill. No calve tenderness or swelling. NEUROLOGICAL: A&Ox 3. 5/5 strength b/l. LABORATORY DATA: Please see below. MICROBIOLOGY: Please see below. IMAGING: CXR (03/08/19): CXR showed CHF Pattern with diffuse interstitial pulmonary edema. ASSESSMENT: This is a 68-year-old white female with SOB secondary to Pulmonary Edema and ESRD. She has shown improvement in her symptoms since admission with a continuous IV nitroglycerin drip. She is scheduled to undergo bedside dialysis followed by transition from the nitroglycerin drip to re-initiation of her home oral medications for blood pressure control. PROBLEMS: #Pulmonary Edema: Suspected to be secondary to volume overload, no progression to ARDS Patient shows improvement in her SOB after diuresis and nitroglycerin drip Continue on telemetry, 2 L of oxygen via nasal cannula Echocardiogram to be performed later today to assess for cardiogenic causes #HTN Emergency: Suspected to be secondary to volume overload. Patient did receive diuresis and continuous nitroglycerin drip. ST-depressions noted on admission, negative initial troponin. Repeat does d emonstrate some troponin elevation, suspected to be likely to HTN. Continue to trend for improvement. Repeat EKG demonstrates resolution of ST changes. Continue on telemetry. Plan to restart patient on her home medications with hold parameters following completion of bedside dialysis. #ESRD on Dialysis: Patient has ESRD, HD MWF. Nephrology has been consulted and we appreciate their input. Patient is scheduled to undergo bedside dialysis today followed by re-initiation of her daily oral medications. 1800 mL fluid restriction #Diabetes: Patient to be given half of her long-acting home insulin Distant carb diet Continue sliding scale insulin DISPOSITION: Pt is receiving 5000U of Heparin SQ BID. VS, I&O, 24H, Fishbone Vital Signs/I&O Vital Signs Date Time Temp Pulse Resp B/P (MAP) Pulse Ox O2 Delivery O2 Flow Rate FiO2 03/08/19 07:32 2.0 03/08/19 07:31 98.2 105 20 141/66 (91) 97 03/08/19 07:20 40 03/08/19 03:35 Non-Rebreather I&O- Last 24 Hours up to 6 AM 03/08/19 06:00 Intake Total 0 ml Output Total 0 ml Balance 0 ml Laboratory Data 24H LABS Laboratory Tests 2 03/08/19 03:00: Immature Granulocyte % (Auto) 0.9, White Blood Count 8.8, Red Blood Count 3.76L, Hemoglobin 11.1L, Hematocrit 34.8L, Mean Corpuscular Volume 92.6, Mean Corpusc ular Hemoglobin 29.5, Mean Corpuscular Hemoglobin Concent 31.9L, Red Cell Distribution Width 13.0, Platelet Count 169, Neutrophils (%) (Auto) 81.7H, Lymphocytes (%) (Auto) 13.3L, Monocytes (%) (Auto) 3.0, Eosinophils (%) (Auto) 0.5, Basophils (%) (Auto) 0.6, Neutrophils # (Auto) 7.2, Lymphocytes # (Auto) 1.2L, Monocytes # (Auto) 0.3, Eosinophils # (Auto) 0.0, Basophils # (Auto) 0.1, Nucleated Red Blood Cells % (auto) 0.0, Prothrombin Time 13.5, Prothromb Time International Ratio 1.06, Anion Gap 10, Glomerular Filtration Rate 10.1L, Blood Urea Nitrogen 49H, Creatinine 4.61H, Sodium Level 142, Potassium Level 4.3, Chloride Level 109H, Carbon Dioxide Level 23, Calcium Level 9.0, Aspartate Amino Transf (AST/SGOT) 23, Alanine Aminotransferase (ALT/SGPT) 21, Total Creatine Kinase 47, Alkaline Phosphatase 51, Total Bilirubin 0.4, Direct Bilirubin 0.1, Total Protein 6.7, Albumin 3.4, Creatine Kinase MB 1.0, Creatine Kinase MB Relative Index 2.13, Troponin I < 0.02, Albumin/Globulin Ratio 1.03, Lipase 430H 03/08/19 03:07: POC Glucose (Misc Panel) 206H, POC Sodium (Misc Panel) 141, POC Potassium (Misc Panel) 4.8, POC Chloride (Misc Panel) 109, POC Total CO2 (Misc Panel) 23.0, POC Blood Urea Nitrogen (Misc Panel 48H, POC Ionized Calcium (Misc Panel) 4.6, POC Creatinine (Misc Panel) 4.9H, POC Hematocrit (Misc Panel) 35.0L 03/08/19 03:48: Blood Gas Bicarbonate Standard 22.3, Arterial Blood pH 7.335L, Arterial Blood Partial Pressure CO2 44.5, Arterial Blood Partial Pressure O2 181.3H, Arterial Blood Total CO2 24.6, Arterial Blood HCO3 23.2, Arterial Blood Base Excess - 2.7L, Arterial Blood Oxygen Saturation 99.1H 03/08/19 07:43: Troponin I 0.49#H CBC/BMP Laboratory Tests 03/08/19 03:00 Red Blood Count 3.76 L, Mean Corpuscular Volume 92.6, Mean Corpuscular Hemoglobin 29.5, Mean Corpuscular Hemoglobin Concent 31.9 L, Red Cell Distribution Width 13.0, Neutrophils (%) (Auto) 81.7 H, Lymphocytes (%) (Auto) 13.3 L, Monocytes (%) (Auto) 3.0, Eosinophils (%) (Auto) 0.5, Basophils (%) (Auto) 0.6, Neutrophils # (Auto) 7.2, Lymphocytes # (Auto) 1.2 L, Monocytes # (Auto) 0.3, Eosinophils # (Auto) 0.0, Basophils # (Auto) 0.1, Calcium Level 9.0, Aspartate Amino Transf (AST/SGOT) 23, Alanine Aminotransferase (ALT/SGPT) 21, Total Creatine Kinase 47, Alkaline Phosphatase 51, Total Bilirubin 0.4, Direct Bilirubin 0.1, Total Protein 6.7, Albumin 3.4 GME ATTESTATION GME ATTESTATION My faculty preceptor for this patient encounter was physically present during the encounter and was fully available. All aspects of the patient interview, examination, medical decision making process, and medical care plan development were reviewed and approved by the faculty preceptor. The faculty preceptor is aware and concurs with the plan as stated in the body of this note and will attest to such by his/her cosignature. ATTENDING NOTE I, Ramesh Saunders, have independently examined this patient and performed my own physical exam, as well as reviewed the documentation and edited where necessary. I have discussed in detail with the resident / student the findings and plan of treatment as documented by the resident / student and edited their note. I agree with their findings and treatment plan and have edited their documentation. I will continue to follow the patient during this hospital stay. ALEXIS FELIX OMS-3 Mar 08, 2019 09:23 JUAN MIGUEL HELLER DO Mar 08, 2019 12:14 RAMESH SAUNDERS MD Mar 09, 2019 17:49
[2019-03-08] MEDS ORDERED: ONDANSETRON 4MG/2ML VIAL (J2405) IV PRN (11:00)
[2019-03-08] MEDS: HumaLOG INSULIN (NovoLOG) PER UNIT SC SCH ×3 (12:00→20:56)
[2019-03-08] MEDS: FOLIC ACID 1 MG TAB PO SCH (12:24)
[2019-03-08] MEDS: BRINZOLAMIDE 1 % OPHTH SUSP (AZOPT) 10ML OU SCH ×2 (12:25→20:57)
[2019-03-08] MEDS: TIMOLOL MALEATE 0.5% OPHTH SOLN 5 ML OU SCH ×2 (12:25→20:58)
[2019-03-08] MEDS: CARVedilol 3.125 MG TAB PO SCH ×2 (12:28→20:55)
[2019-03-08] MEDS: CLOPIDOGREL 75 MG TAB PO SCH (12:29)
[2019-03-08] MEDS: predniSONE 5 MG TAB PO SCH (12:29)
[2019-03-08] MEDS: ISOSORBIDE DIN. (ISORDIL) 30 MG TAB PO SCH ×2 (12:30→20:55)
[2019-03-08 12:46] LABS: MB/CK RELATIVE INDEX 10.58 (< OR =4); TROPONIN I 2.83 NG/ML (< 0.10)
--- NOTE | 2019-03-08 14:20 | CR.PDOC ---
General Date of Consultation: Mar 08, 2019 Referring Provider: BASILIO MCCANN MD Attending Physician: ROSA JONES MD Consultation REASON FOR CONSULTATION/CHIEF COMPLAINT: Pulmonary edema and Hypertensive Emergency in the setting of ESRD. HISTORY OF PRESENT ILLNESS: Lyndsay Johnson is a 68 YO F with history of ESRD on HD (M, W, F) who presents with chest pain and shortness of breath and hypertensive urgency. This is her second admission for this reason since 11/2018. On the previous admission, she reported with chest pain and was found to have pulmonary edema secondary to volume overload from CHF. Given that her troponin was elevated and her EKG demonstrated ST changes and T-wave depressions suggesting lateral ischemia, she was sent to [facility] for further workup. The workup revealed one cardiac stent almost completely occluded and another partially occluded. Her chest pain and shortness of breath was then attributed to her hypervolemic fluid status in the setting of diet and HD noncompliance. On this admission she presents with the same complaint--SOB and left-sided chest pain that radiated to her back that was not relieved with nitroglycerin. She was also found to be hypertensive and fluid overloaded. Nephrology was consulted for emergent dialysis. ALLERGIES: Please see below. HOME MEDICATIONS: Please see below. PAST MEDICAL HISTORY: 1. ESRD on HD (M, W, F) 2. History of NSTEMI 3. History of hypertensive emergency 4. CHF with history of exacerbations 5. CAD with multiple stents 6. Rheumatoid arthritis depended on steroids and immunomodulators 7. Dyslipidemia 8. Glaucoma 9. Non-rheumatic Mitral regurgitation 10. 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 Bladder suspension 2. 3. AV fistula placement FAMILY HISTORY: Noncontributory SOCIAL HISTORY: Nonsmoker. Occasional alcohol REVIEW OF SYSTEMS: CONSTITUTIONAL: Feels weak and tired; HEENT: denies vision changes other than decreased vision in L eye, no sinus problems, denies any trouble swallowing CARDIOVASCULAR: Chest pain was 8/10 but now resolved RESPIRATORY: Reports increasing shortness of breath GENITOURINARY: No dysuria MUSCULOSKELETAL: Denies any joint/muscle pain GASTROINTESTINAL: Denies any abdominal pain, nausea or vomiting. No diarrhea rep orted SKIN: No new rashes or lesions NEUROLOGICAL: No loss of sensation PSYCHIATRIC: Reports normal mood/affect ENDOCRINE: No hot/cold intolerance HEMATOLOGIC/LYMPHATIC: No easy bruising, no lumps/bumps ALLERGIC/IMMUNOLOGIC: No sinus symptoms All other ROS is negative PHYSICAL EXAMINATION: VITAL SIGNS: Please see below. GENERAL APPEARANCE: Laying in bed undergoing dialysis, appears stated age, no acute distress HEENT: EOMI, PERRLA, neck is supple with no thyromegaly or lymphadenopathy RESPIRATORY: Crackles throughout both lung allred up to the middle lobes bilaterally CARDIOVASCULAR: JVD is elevated to 12-14cm at the sternal angle, RRR without murmurs/rubs/gallops ABDOMEN: Soft, nontender to palpation, no masses/organomegaly EXTREMITIES: no clubbing, cyanosis or edema noted NEUROLOGICAL: No obvious focal deficits PSYCHIATRIC: normal mood/affect Skin: No rashes or ulcers. LN: No significant cervical or inguinal lymphadenopathy LABORATORY DATA: Please see below. ASSESSMENT/PLAN: This is a 68 YO F with history of ESRD on HD who presents with chest pain and SOB found to have hypertensive emergency and pulmonary edema 1. ESRD on HD M,W,F: p -Patient being dialyzed at the bedside today with goal of 2500L removal -Zofran PRN for nausea 2. Hypertensive emergency: BP was found to be 234/119 on admission -S/p nitroglycerin drip -It has come down with dialysis to 130s-140s/70s. Likely to improve -Continue Hydralazine, Isordil, Coreg 3. Pulmonary edema: likely 2/2 fluid overload and will improve with dialysis -Fluid appears to be concentrated in her lungs. JVD is elevated but there is no peripheral edema -Another echo has been ordered, as she does have a history of CHF 4. Elevated troponins: -Likely 2/2 stress-induced ischemia. 5. CAD s/p multiple stents: -continue Atorvastatin, ASA, Plavix 6. DM2: -Continue Levemir and SSI 7. Chronic anemia 2/2 CKD: -Continue Velphoro Dispo: Pending improvement in volume status. Vital Signs/I&O Vital Signs Date Time Temp Pulse Resp B/P (MAP) Pulse Ox O2 Delivery O2 Flow Rate FiO2 03/08/19 12:28 182/83 03/08/19 12:00 2.0 03/08/19 12:00 97.2 90 16 99 03/08/19 07:20 40 03/08/19 03:35 Non-Rebreather Laboratory Data Labs 24H Laboratory Tests 2 03/08/19 03:00: Immature Granulocyte % (Auto) 0.9, White Blood Count 8.8, Red Blood Count 3.76L, Hemoglobin 11.1L, Hematocrit 34.8L, Mean Corpuscular Volume 92.6, Mean Corpuscular Hemoglobin 29.5, Mean Corpuscular Hemoglobin Concent 31.9L, Red Cell Distribution Width 13.0, Platelet Count 169, Neutrophils (%) (Auto) 81.7H, Lymphocytes (%) (Auto) 13.3L, Monocytes (%) (Auto) 3.0, Eosinophils (%) (Auto) 0.5, Basophils (%) (Auto) 0.6, Neutrophils # (Auto) 7.2, Lymphocytes # (Auto) 1.2L, Monocytes # (Auto) 0.3, Eosinophils # (Auto) 0.0, Basophils # (Auto) 0.1, Nucleated Red Blood Cells % (auto) 0.0, Prothrombin Time 13.5, Prothromb Time International Ratio 1.06, Anion Gap 10, Glomerular Filtration Rate 10.1L, Blood Urea Nitrogen 49H, Creatinine 4.61H, Sodium Level 142, Potassium Level 4.3, Chloride Level 109H, Carbon Dioxide Level 23, Calcium Level 9.0, Aspartate Amino Transf (AST/SGOT) 23, Alanine Aminotransferase (ALT/SGPT) 21, Total Creatine Kinase 47, Alkaline Phosphatase 51, Total Bilirubin 0.4, Direct Bilirubin 0.1, Total Protein 6.7, Albumin 3.4, Creatine Kinase MB 1.0, Creatine Kinase MB Relative Index 2.13, Troponin I < 0.02, Albumin/Globulin Ratio 1.03, Lipase 430H 03/08/19 03:07: POC Glucose (Misc Panel) 206H, POC Sodium (Misc Panel) 141, POC Potassium (Misc Panel) 4.8, POC Chloride (Misc Panel) 109, POC Total CO2 (Misc Panel) 23.0, POC Blood Urea Nitrogen (Misc Panel 48H, POC Ionized Calcium (Misc Panel) 4.6, POC Creatinine (Misc Panel) 4.9H, POC Hematocrit (Misc Panel) 35.0L 03/08/19 03:48: Blood Gas Bicarbonate Standard 22.3, Arterial Blood pH 7.335L, Arterial Blood Partial Pressure CO2 44.5, Arterial Blood Partial Pressure O2 181.3H, Arterial Blood Total CO2 24.6, Arterial Blood HCO3 23.2, Arterial Blood Base Excess - 2.7L, Arterial Blood Oxygen Saturation 99.1H 03/08/19 07:43: Troponin I 0.49#H 03/08/19 10:23: Bedside Glucose (Misc Panel) 134H 03/08/19 11:50: Bedside Glucose (Misc Panel) 112 03/08/19 11:54: Total Creatine Kinase 104#, Creatine Kinase MB 11.0H, Creatine Kinase MB Relative Index 10.58H, Troponin I 2.83#*H CBC/BMP Laboratory Tests 03/08/19 03:00 Red Blood Count 3.76 L, Mean Corpuscular Volume 92.6, Mean Corpuscular Hemoglobi n 29.5, Mean Corpuscular Hemoglobin Concent 31.9 L, Red Cell Distribution Width 13.0, Neutrophils (%) (Auto) 81.7 H, Lymphocytes (%) (Auto) 13.3 L, Monocytes (%) (Auto) 3.0, Eosinophils (%) (Auto) 0.5, Basophils (%) (Auto) 0.6, Neutrophils # (Auto) 7.2, Lymphocytes # (Auto) 1.2 L, Monocytes # (Auto) 0.3, Eosinophils # (Auto) 0.0, Basophils # (Auto) 0.1, Calcium Level 9.0, Aspartate Amino Transf (AST/SGOT) 23, Alanine Aminotransferase (ALT/SGPT) 21, Total Creatine Kinase 47, Alkaline Phosphatase 51, Total Bilirubin 0.4, Direct Bilirubin 0.1, Total Protein 6.7, Albumin 3.4 Allergies Coded Allergies: No Known Allergies (Unverified , 12/10/18) Home Medications Scheduled Aspirin (Aspirin EC) 81 Mg Tab, 81 MG PO DAILY, (Reported) Atorvastatin Calcium (Atorvastatin Calcium) 20 Mg Tab, 20 MG PO QHS, (Reported) Bimatoprost (Lumigan) 50 Drop/2.5 Ml Ana Paula, 1 DROP OD QHS, (Reported) Brimonidine Tartrate (Brimonidine Tartrate) 0.2 % Ana Paula, 1 DROP OU TID, (Reported) Brinzolamide (Azopt) 1 % Loraine, 1 DROP OU BID, (Reported) Carvedilol (Carvedilol) 3.125 Mg Tab, 3.125 MG PO BID, (Reported) TAKES IF BP >140 Cholecalciferol (Vitamin D3) (Vitamin D3) 50,000 Unit Cap, 50,000 UNIT PO 1XMONTH, (Reported) Clopidogrel Bisulfate (Plavix) 75 Mg Tablet, 75 MG PO DAILY, (Reported) Folic Acid (Folic Acid) 1 Mg Tab, 1 MG PO DAILY, (Reported) Folic Acid/Vit B Complex and C (Jenni-Tres Tablet) 1 Tab Tab, 1 TAB PO DAILY, (Reported) Hydralazine HCl (Hydralazine HCl) 25 Mg Tablet, 25 MG PO BID, (Reported) Insulin Glargine,Hum.rec.anlog (Lantus Solostar) 100 Unit/Ml Inj, 6 UNITS SC DAILY, (Reported) Insulin Lispro (Humalog Kwikpen U-100) 100 Unit/Ml Inj, 1 DOSE SC AC, (Reported) SLIDING SCALE PER HOME REGIMEN Isosorbide Dinitrate (Isosorbide Dinitrate) 30 Mg Tablet, 30 MG PO BID, (Reported) Prednisolone Acetate (Pred Forte 1% Opth Susp) 1 % Loraine, 1 DROP OS QHS, (Reported) Prednisone (Prednisone) 5 Mg Tab, 5 MG PO DAILY, (Reported) Sucroferric Oxyhydroxide (Velphoro) 500 Mg Tab.chew, 500 MG PO QPM, (Reported) AT DINNER Timolol Maleate (Timolol Maleate) 0.5 % Ana Paula, 1 DROP OU BID, (Reported) Scheduled PRN Nitroglycerin (Nitrostat) 0.4 Mg Subl, 0.4 MG SL NITRO PRN for CHEST PAIN, (Reported) GME ATTESTATION GME ATTESTATION My faculty preceptor for this patient encounter was physically present during the encounter and was fully available. All aspects of the patient interview, ex amination, medical decision making process, and medical care plan development were reviewed and approved by the faculty preceptor. The faculty preceptor is aware and concurs with the plan as stated in the body of this note and will attest to such by his/her cosignature. ATTENDING NOTE Pt was seen and examined at bedside today AM during rounds with the resident. Assessment: Acute Hypoxemic Resp Failure Acute Pulm Edema Hypertensive Emergency CAD and elevated troponins ESRD on HD Plan: Emergent bedside HD with UF goal 3L NTG drip to be weaned off during fluid removal Cont home antihypertensive Serial troponin measurement. Repeat UF tomorrow if needed. Rest of plan as per resident note Pt was examined during HD as well and she was tolerating the HD well. Total critical Care time spent in the management of this patient in ICU today morning was 1Hr 5min excluding all the procedures. LEILA ALBIRGHT MD Mar 08, 2019 14:20 ROSA JONES MD Mar 08, 2019 21:11
[2019-03-08] MEDS: SUCROFERRIC OXYHYDROXIDE 500MG CHEW TAB (VELPHORO) PO SCH (17:39)
--- NOTE | 2019-03-08 17:49 | ECGEPIP ---
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
[2019-03-08 19:14] LABS: CK-MB VALUE MASS 7.4 NG/ML (<3.6); MB/CK RELATIVE INDEX 8.13 (< OR =4); TROPONIN I 3.41 NG/ML (< 0.10)
[2019-03-08] MEDS: ATORVASTATIN 20 MG TAB PO SCH (20:53)
[2019-03-08] MEDS: prednisoLONE ACET 1% OPHTH SUSP 5ML OS SCH (20:58)
[2019-03-08] MEDS ORDERED: **hydrALAZINE HCL** 25 MG TAB PO SCH (21:00)
[2019-03-09] VITALS (89 sets, daily range): BP systolic 120–207; BP diastolic 56–84
[2019-03-09 01:05] LABS: CK-MB VALUE MASS 4.8 NG/ML (<3.6); MB/CK RELATIVE INDEX 4.03 (< OR =4); TROPONIN I 4.06 NG/ML (< 0.10)
[2019-03-09 04:51] LABS: HEMATOCRIT 33.2 % (36.0-47.0); HEMOGLOBIN 10.5 g/dl (12.0-15.5); MEAN CORPUSCULAR HEMOGLOBIN 29.5 pg (27.0-33.0); MEAN CORPUSCULAR HGB CONC 31.6 g/dl (32.0-36.5); MEAN CORPUSCULAR VOLUME 93.3 fl (80.0-96.0); PLATELET COUNT, AUTOMATED 162 10^3/uL (150-450); RED BLOOD COUNT 3.56 10^6/uL (4.00-5.40); WHITE BLOOD COUNT 8.2 10^3/uL (4.0-10.0)
[2019-03-09 05:35] LABS: BILIRUBIN,TOTAL 0.5 MG/DL (0.2-1.0); CALCIUM LEVEL 8.9 MG/DL (8.8-10.2); CK-MB VALUE MASS 3.7 NG/ML (<3.6); CREATININE FOR GFR 3.98 MG/DL (0.55-1.30); MAGNESIUM LEVEL 1.9 MG/DL (1.8-2.4); MB/CK RELATIVE INDEX 4.3 (< OR =4); POTASSIUM SERUM 4.5 MEQ/L (3.5-5.1); TOTAL PROTEIN 6.3 GM/DL (6.4-8.2); TROPONIN I 3.7 NG/ML (< 0.10)
[2019-03-09] MEDS: NITROGLYCERIN/D5W 100MCG/ML 25 MG in IV 1 EA IV SCH (06:12)
[2019-03-09] MEDS: HumaLOG INSULIN (NovoLOG) PER UNIT SC SCH ×4 (07:23→20:32)
[2019-03-09] MEDS ORDERED: **hydrALAZINE HCL** 25 MG TAB PO SCH (08:15)
[2019-03-09] MEDS: LEVEMIR (INSULIN DETEMIR) 1 UNITS/0.01ML SC SCH (08:49)
[2019-03-09] MEDS: ASPIRIN 81 MG ENTERIC TAB PO SCH (08:50)
[2019-03-09] MEDS: ISOSORBIDE DIN. (ISORDIL) 30 MG TAB PO SCH ×2 (08:50→20:31)
[2019-03-09] MEDS: FOLIC ACID 1 MG TAB PO SCH (08:50)
[2019-03-09] MEDS: predniSONE 5 MG TAB PO SCH (08:50)
[2019-03-09] MEDS: HEPARIN SOD (PORCINE) 5000 UNITS/ML VIAL SQ SCH ×2 (08:50→20:32)
[2019-03-09] MEDS: CLOPIDOGREL 75 MG TAB PO SCH (08:51)
[2019-03-09] MEDS: CARVedilol 6.25 MG TAB PO SCH ×2 (08:51→20:31)
[2019-03-09] MEDS: TIMOLOL MALEATE 0.5% OPHTH SOLN 5 ML OU SCH ×2 (08:53→20:32)
[2019-03-09] MEDS: BRINZOLAMIDE 1 % OPHTH SUSP (AZOPT) 10ML OU SCH ×2 (08:53→20:32)
[2019-03-09] MEDS ORDERED: **hydrALAZINE HCL** 25 MG TAB PO ONE (10:00)
--- NOTE | 2019-03-09 10:01 | REP ---
Single view chest: 03/09/2019. Indication: Dyspnea. Chest pain. Comparison: Yesterday. Findings: There has been improvement in the findings of CHF as well as decreased size of the cardiac silhouette/strain. Tunnel catheter from a left subclavian approach is unchanged in position. There is no pneumothorax or significant pleural fluid. Impression: Significantly improved CHF. Electronically Signed by Atilio Castro DO 03/09/2019 09:52 A
--- NOTE | 2019-03-09 10:21 | IPNPDOC ---
Date Seen The patient was seen on 03/09/19. Progress Note SUBJECTIVE: Chief complaint: Patient is a 68-year-old white female presenting with shortness of breath secondary to pulmonary edema HPI: Lyndsay Johnson is a 68-year-old white female with a history of pulmonary edema, Hypertensive emergency and end-stage renal disease seen today for follow-up. Patient reported feeling better today compared to yesterday. She denies any shortness of breath, episodes of nausea vomiting or any chest pain. Patient denies any cough or constitutional symptoms. Yesterday, An attempt was made at discontinuing patient's nitroglycerin drip, however Patient had a reported blood pressure at 1805 of 171/77, and so nitroglycerin drip was reinitiated. This is consistent with patient's complaint of poor blood pressure control in the evenings. Discussion with patient's showed attempts were made at adhering to dietary restrictions. However, he explained that she had been frequently eating 2 sausages twice a day for the past few months. Additionally, he believes they have been eating tuna fairly frequently as a source of protein. Both of these sources could have been contributing to patient's noncompliance with her sodium restriction. Yesterday patient had elevated troponins gradually increasing to a maximum value of 4.06. Today's values are showing to be trending downwards reported at 0442 to be 3.7. Patient continues to have ST depressions in leads I and aVL indicative of lateral ischemia. Patient underwent bedside hemodialysis yesterday with a goal of removing 2.5 L. Patient reported nausea and dizziness post dialysis. She was given 4 mg IV of ondansetron, which resolved the nausea after which she was reinitiated on home oral medications. Patient reported no difficulty tolerating home oral medications. Patient's type 2 diabetes continues to be managed with Levemir and sliding scale insulin. Last reported blood glucose taken 03/08/2019 at 2044 was reported to be 245. OBJECTIVE PHYSICAL EXAMINATION: VITAL SIGNS: Please see below. GENERAL: Patient is lying in bed, appears stated age and is pleasant, cooperative and in no acute distress. Patient's is with her and assisted with her history. HEENT: Normocephalic, atraumatic. Patient's facial swelling is reduced compared to yesterday. believes she is back to her baseline. PERRLA, EOMI there is no noted conjunctival injection compared to yesterday. No nasal discharge. Patient appears to have good oral hygiene and dentition. No tracheal deviation or JVD noted CARDIOVASCULAR:. Regular rate and rhythm. Normal S1 and S2. No murmurs, gallops or rubs noted. RESPIRATORY: There continued be Rales in the lower lobes bilaterally. No wheezes or rhonchi noted. ABDOMINAL: No lesions noted. No pain upon palpation, rebound tenderness, guarding or rigidity. Normal bowel sounds noted throughout all 4 quadrants. No bruits heard EXTREMITIES:. Patient noted to have 2 out of 4 pedal pulses bilaterally. Normal capillary refill. No calf tenderness or swelling NEUROLOGICAL:. A & O 3. 5/5 strength noted bilaterally PSYCHOLOGICAL: Mood: Patient reports feeling in better spirits compared to yesterday. Affect: Patient appears to have more energy compared to yesterday LABORATORY DATA MICROBIOLOGY: Please see below. Imaging: CXR (03/08/2019): CXR showed CHF pattern with diffuse interstitial pulmonary edema. CXR (03/09/2019): Improvement in findings of CHF with as well as decreased size of cardiac silhouette DVT prophylaxis ordered?: Patient continues to be managed with heparin 5000 units twice a day ASSESSMENT AND PLAN: This is a 68-year-old white female with shortness of breath secondary to pulmonary edema and ESRD. Patient reports significant improvement in symptomatology compared to yesterday. Upon further discussion with her today, We found that she had a significant past history of sodium intake. This could have contributed to this particular episode PROBLEMS: #Pulmonary edema: Patient reports significant improvement in her shortness of breath and chest x- ray showed significant improvement in interstitial pulmonary edema. We had a discussion with her about possible sources of sodium that led to dietary noncompliance. He intends to research better sources of protein for his in order to avoid any recurrence. #Hypertensive emergency: Patient was reinitiated on nitroglycerin drip yesterday due to elevations in blood pressure. Patient was started on hydralazine 50 mg by mouth tid as well as carvedilol 6.25 mg by mouth bid. We plan to discontinue the nitroglycerin drip later today. Patient's troponins show a downward trend, likely indicating transient end-organ damage secondary to hypertensive emergency. Additionally, patient's EKG continued to show lateral ischemia secondary to occluded coronary stent found on angiogram. #ESRD Patient underwent bedside hemodialysis yesterday with a subsequent appointment scheduled for Friday. Her most recent creatinine taken 03/09/2019 at 0442 was reported to be 3.98, as well as her BUN at 27. She has an estimated GFR of 12. #Elevated troponin - likely 2/2 NSTEMI - likely 2/2 elevated blood pressures - Patient has received a recent cardiac catheterization; was found to have occlusion of the stent, however, had sufficient collaterals, patient also had nonsignificant stenosis of another coronary artery - Currently patient remains asymptomatic; no CP, SOB or palpitations - EKG has shown improvement in ischemic change at V5-V6 noted on admission - Troponin although trended up initially has improved - c/w ASA, Plavix and BP optimization - Case has been discussed with Cariology locally, Dr. Mendoza and with cardiology at [facility]; advised against full anticoagulation #DM2 Patient currently being managed with Levemir and sliding scale Humalog DVT Prophylaxis Heparin 5000 units bid. VS, I&O, 24H, Fishbone Vital Signs/I&O Vital Signs Date Time Temp Pulse Resp B/P (MAP) Pulse Ox O2 Delivery O2 Flow Rate FiO2 03/09/19 09:41 75 154/69 (97) 94 03/09/19 07:21 97.1 16 03/09/19 04:33 0.5 03/08/19 07:20 40 03/08/19 03:35 Non-Rebreather I&O- Last 24 Hours up to 6 AM 03/09/19 06:00 Intake Total 1671 ml Output Total 2950 ml Balance -1279 ml Laboratory Data 24H LABS Laboratory Tests 2 03/08/19 10:23: Bedside Glucose (Misc Panel) 134H 03/08/19 11:50: Bedside Glucose (Misc Panel) 112 03/08/19 11:54: Total Creatine Kinase 104#, Creatine Kinase MB 11.0H, Creatine Kinase MB Relative Index 10.58H, Troponin I 2.83#*H 03/08/19 16:27: Bedside Glucose (Misc Panel) 279H 03/08/19 18:23: Total Creatine Kinase 91, Creatine Kinase MB 7.4H, Creatine Kinase MB Relative Index 8.13H, Troponin I 3.41#*H 03/08/19 20:44: Bedside Glucose (Misc Panel) 245H 03/09/19 00:08: Total Creatine Kinase 119, Creatine Kinase MB 4.8H, Creatine Kinase MB Relative Index 4.03H, Troponin I 4.06*H 03/09/19 04:42: Total Creatine Kinase 86, Creatine Kinase MB 3.7H, Creatine Kinase MB Relative Index 4.30H, Troponin I 3.70*H, Nucleated Red Blood Cells % (auto) 0.0, Anion Gap 8, Glomerular Filtration Rate 12.0L, Blood Urea Nitrogen 27H, Creatinine 3.98H, Sodium Level 138, Potassium Level 4.5, Chloride Level 103, Carbon Dioxide Level 27, Calcium Level 8.9, Aspartate Amino Transf (AST/SGOT) 27, Alanine Aminotransferase (ALT/SGPT) 19, Alkaline Phosphatase 48, Total Bilirubin 0.5, Total Protein 6.3L, Albumin 3.0L, Magnesium Level 1.9, Albumin/Globulin Ratio 0.91L CBC/BMP Laboratory Tests 03/09/19 04:42 Red Blood Count 3.56 L, Mean Corpuscular Volume 93.3, Mean Corpuscular Hemoglobin 29.5, Mean Corpuscular Hemoglobin Concent 31.6 L, Red Cell Distribution Width 13.2, Calcium Level 8.9, Aspartate Amino Transf (AST/SGOT) 27, Alanine Aminotransferase (ALT/SGPT) 19, Total Creatine Kinase 86, Alkaline Phosphatase 48, Total Bilirubin 0.5, Total Protein 6.3 L, Albumin 3.0 L GME ATTESTATION GME ATTESTATION My faculty preceptor for this patient encounter was physically present during the encounter and was fully available. All aspects of the patient interview, examination, medical decision making process, and medical care plan development were reviewed and approved by the faculty preceptor. The faculty preceptor is aware and concurs with the plan as stated in the body of this note and will attest to such by his/her cosignature. ATTENDING NOTE I, Ramesh Morton, have independently examined this patient and performed my own physical exam, as well as reviewed the documentation and edited where necessary. I have discussed in detail with the resident / student the findings and plan of treatment as documented by the resident / student and edited their note. I agree with their findings and treatment plan and have edited their documentation. I will continue to follow the patient during this hospital stay. ALEXIS FELIX-3 Mar 09, 2019 10:21 JUAN MIGUEL HELLER DO Mar 09, 2019 15:07 RAMESH MORTON MD Mar 09, 2019 15:11
[2019-03-09] MEDS ORDERED: NITROGLYCERIN IN D5W 25MG/250ML (100MCG/ML) As Ordered ONE (10:33)
[2019-03-09] MEDS ORDERED: NITROGLYCERIN/D5W 100MCG/ML 25 MG in IV 1 EA IV SCH (11:00)
--- NOTE | 2019-03-09 11:53 | IPNPDOC ---
Date Seen The patient was seen on 03/09/19. Progress Note NEPHROLOGY SERVICE PROGRESS NOTE: SUBJECTIVE: Patient was seen and examined at the bedside this morning. She had dialysis yesterday with 2400cc fluid removed. She did get leg cramping and nausea toward the end of dialysis. She is not complaining of any shortness of breath today. Her BP was elevated this morning and she was started back on her nitroglycerin drip. She was also found to have elevated troponins overnight. This morning she states she feels much better. OBJECTIVE PHYSICAL EXAMINATION: VITAL SIGNS: Please see below. GENERAL APPEARANCE: Sitting up in bed, calm, cooperative, appears stated age, no acute distress HEENT: EOMI, PERRLA, neck is supple with no thyromegaly or lymphadenopathy RESPIRATORY: Crackles throughout both lung allred up to the middle lobes bilaterally but improved from yesterday CARDIOVASCULAR: JVD is elevated to 12-14cm at the sternal angle, RRR without murmurs/rubs/gallops ABDOMEN: Soft, nontender to palpation, no masses/organomegaly EXTREMITIES: no clubbing, cyanosis or edema noted NEUROLOGICAL: No obvious focal deficits PSYCHIATRIC: normal mood/affect Skin: No rashes or ulcers. LN: No significant cervical or inguinal lymphadenopathy LABORATORY DATA: Please see below. ASSESSMENT/PLAN: This is a 68 YO F with history of ESRD on HD who presents with chest pain and SOB found to have hypertensive emergency and pulmonary edema 1. ESRD on HD M,W,F: -Patient will get ultrafiltration done today at the bedside with goal of 2L removed. She still has significant crackles and JVD on exam. -Zofran PRN for nausea 2. Hypertensive emergency: BP was found to be 234/119 on admission -Nitroglycerin drip restarted yesterday evening as BPs were high -BP likely to improve more ultrafiltration today -Hydralazine was increased to 50mg TID -Continue Coreg, Isordil 3. Acute hypoxemic respiratory failure 2/2 Pulmonary edema: likely 2/2 fluid overload and will improve with dialysis -Fluid appears to be concentrated in her lungs. JVD is elevated but there is no peripheral edema -Another echo has been ordered and has yet to be read, as she does have a history of CHF -CXR done this morning demonstrates significantly improved pulmonary edema 4. Elevated troponins: -Likely 2/2 stress-induced ischemia -Patient does have history of NSTEMI 5. CAD s/p multiple stents with elevated troponins: -continue Atorvastatin, ASA, Plavix 6. DM2: -Continue Levemir and SSI 7. Chronic anemia 2/2 CKD: -Continue Velphoro Dispo: Pending improvement in volume status. VS, I&O, 24H, Fishbone Vital Signs/I&O Vital Signs Date Time Temp Pulse Resp B/P (MAP) Pulse Ox O2 Delivery O2 Flow Rate FiO2 03/09/19 10:50 69 136/65 (88) 95 03/09/19 07:21 97.1 16 03/09/19 04:33 0.5 03/08/19 07:20 40 03/08/19 03:35 Non-Rebreather I&O- Last 24 Hours up to 6 AM 03/09/19 06:00 Intake Total 1671 ml Output Total 2950 ml Balance -1279 ml Laboratory Data 24H LABS Laboratory Tests 2 03/08/19 11:50: Bedside Glucose (Misc Panel) 112 03/08/19 11:54: Total Creatine Kinase 104#, Creatine Kinase MB 11.0H, Creatine Kinase MB Relative Index 10.58H, Troponin I 2.83#*H 03/08/19 16:27: Bedside Glucose (Misc Panel) 279H 03/08/19 18:23: Total Creatine Kinase 91, Creatine Kinase MB 7.4H, Creatine Kinase MB Relative Index 8.13H, Troponin I 3.41#*H 03/08/19 20:44: Bedside Glucose (Misc Panel) 245H 03/09/19 00:08: Total Creatine Kinase 119, Creatine Kinase MB 4.8H, Creatine Kinase MB Relative Index 4.03H, Troponin I 4.06*H 03/09/19 04:42: Total Creatine Kinase 86, Creatine Kinase MB 3.7H, Creatine Kinase MB Relative Index 4.30H, Troponin I 3.70*H, Nucleated Red Blood Cells % (auto) 0.0, Anion Gap 8, Glomerular Filtration Rate 12.0L, Blood Urea Nitrogen 27H, Creatinine 3.98H, Sodium Level 138, Potassium Level 4.5, Chloride Level 103, Carbon Dioxide Level 27, Calcium Level 8.9, Aspartate Amino Transf (AST/SGOT) 27, Alanine Aminotransferase (ALT/SGPT) 19, Alkaline Phosphatase 48, Total Bilirubin 0.5, Total Protein 6.3L, Albumin 3.0L, Magnesium Level 1.9, Albumin/Globulin Ratio 0.91L CBC/BMP Laboratory Tests 03/09/19 04:42 Red Blood Count 3.56 L, Mean Corpuscular Volume 93.3, Mean Corpuscular Hemoglobin 29.5, Mean Corpuscular Hemoglobin Concent 31.6 L, Red Cell Distribution Width 13.2, Calcium Level 8.9, Aspartate Amino Transf (AST/SGOT) 27, Alanine Aminotransferase (ALT/SGPT) 19, Total Creatine Kinase 86, Alkaline P hosphatase 48, Total Bilirubin 0.5, Total Protein 6.3 L, Albumin 3.0 L GME ATTESTATION GME ATTESTATION My faculty preceptor for this patient encounter was physically present during the encounter and was fully available. All aspects of the patient interview, examination, medical decision making process, and medical care plan development were reviewed and approved by the faculty preceptor. The faculty preceptor is aware and concurs with the plan as stated in the body of this note and will attest to such by his/her cosignature. ATTENDING NOTE Pt was seen and examined today AM in ICU. Still on Nitro gtt. s/p HD yesterday 2L UF. Assessment: Hypertensive emergency Decompensated HFrEF NSTEMI Pulm Edema ESRD on HD Plan: Another HD/UF to be done at bedside today. UF goal 2L Titrate off Nitro once UF is done. Trend troponins. Cont ASA,Plavix statins. Total Critical care time spent in ICU today AM is 45 min excluding procedures. LEILA ALBRIGHT MD Mar 09, 2019 11:53 ROSA JONES MD Mar 09, 2019 21:24
[2019-03-09] MEDS ORDERED: HEPARIN 1,000 UNITS/ML 10ML VIAL (FOR RADIOLOGY& DIALYSIS ONLY) XX ONE (12:45)
[2019-03-09] MEDS ORDERED: HEPARIN 1,000 UNITS/ML 10ML VIAL (FOR RADIOLOGY& DIALYSIS ONLY) IV ONE (12:45)
[2019-03-09 13:04] LABS: CK-MB VALUE MASS 2.5 NG/ML (<3.6); MB/CK RELATIVE INDEX 3.57 (< OR =4); TROPONIN I 3.35 NG/ML (< 0.10)
[2019-03-09] MEDS: **hydrALAZINE** 50 MG TAB PO SCH ×2 (16:44→20:30)
[2019-03-09] MEDS: SUCROFERRIC OXYHYDROXIDE 500MG CHEW TAB (VELPHORO) PO SCH (16:44)
[2019-03-09] MEDS ORDERED: **NOTE PATIENT COMMENT** MISC XX SCH (17:30)
[2019-03-09] MEDS: ATORVASTATIN 20 MG TAB PO SCH (20:31)
[2019-03-09] MEDS: prednisoLONE ACET 1% OPHTH SUSP 5ML OS SCH (20:32)
[2019-03-09] MEDS: BRIMONIDINE TARTRATE 0.2% OU SCH (21:00)
[2019-03-10] VITALS (13 sets, daily range): BP systolic 102–172; BP diastolic 48–97
[2019-03-10 05:00] LABS: HEMATOCRIT 37.1 % (36.0-47.0); HEMOGLOBIN 11.6 g/dl (12.0-15.5); MEAN CORPUSCULAR HEMOGLOBIN 28.4 pg (27.0-33.0); MEAN CORPUSCULAR HGB CONC 31.3 g/dl (32.0-36.5); MEAN CORPUSCULAR VOLUME 90.9 fl (80.0-96.0); PLATELET COUNT, AUTOMATED 147 10^3/uL (150-450); RED BLOOD COUNT 4.08 10^6/uL (4.00-5.40); WHITE BLOOD COUNT 8.4 10^3/uL (4.0-10.0)
[2019-03-10 05:32] LABS: CALCIUM LEVEL 9.1 MG/DL (8.8-10.2); CREATININE FOR GFR 5.41 MG/DL (0.55-1.30); GLOMERULAR FILTRATION RATE 8.4 (>45); MAGNESIUM LEVEL 2.3 MG/DL (1.8-2.4); POTASSIUM SERUM 4.3 MEQ/L (3.5-5.1)
[2019-03-10] MEDS: FOLIC ACID 1 MG TAB PO SCH (06:33)
[2019-03-10] MEDS: CLOPIDOGREL 75 MG TAB PO SCH (06:33)
[2019-03-10] MEDS: ASPIRIN 81 MG ENTERIC TAB PO SCH (06:40)
[2019-03-10] MEDS: LEVEMIR (INSULIN DETEMIR) 1 UNITS/0.01ML SC SCH (08:07)
[2019-03-10] MEDS: HumaLOG INSULIN (NovoLOG) PER UNIT SC SCH ×4 (08:07→20:22)
[2019-03-10] MEDS: ISOSORBIDE DIN. (ISORDIL) 30 MG TAB PO SCH ×2 (08:08→20:35)
[2019-03-10] MEDS: HEPARIN SOD (PORCINE) 5000 UNITS/ML VIAL SQ SCH ×2 (08:09→21:03)
[2019-03-10] MEDS: predniSONE 5 MG TAB PO SCH (08:09)
[2019-03-10] MEDS: **hydrALAZINE** 50 MG TAB PO SCH ×3 (08:09→20:35)
[2019-03-10] MEDS: BRINZOLAMIDE 1 % OPHTH SUSP (AZOPT) 10ML OU SCH ×3 (08:10→21:04)
[2019-03-10] MEDS: CARVedilol 6.25 MG TAB PO SCH ×2 (08:10→20:35)
[2019-03-10] MEDS: TIMOLOL MALEATE 0.5% OPHTH SOLN 5 ML OU SCH ×2 (08:11→21:04)
[2019-03-10] MEDS: BRIMONIDINE TARTRATE 0.2% OU SCH ×3 (08:11→21:03)
[2019-03-10] MEDS: prednisoLONE ACET 1% OPHTH SUSP 5ML OS SCH (08:58)
--- NOTE | 2019-03-10 10:54 | IPNPDOC ---
Date Seen The patient was seen on 03/10/19. Progress Note SUBJECTIVE: Patient is a 68-year-old white female presenting with shortness of breath secondary to pulmonary edema. Patient was seen and examined at bedside this morning. Patient appeared to be in good spirits claimed that she felt even better than yesterday. She denied any shortness of breath, chest pain, weakness or dizziness. She said that she finally felt back to her baseline. Patient un derwent hemodialysis yesterday removing 2 L. She explains she experienced another episode of nausea and leg cramping following the procedure. However, it went away fairly quickly. We discussed reinitiation of her medication for her right-sided open angle glaucoma OBJECTIVE PHYSICAL EXAMINATION: VITAL SIGNS: Please see below. GENERAL: Patient is lying in bed, cooperative and in no acute distress HEENT:. Normocephalic, atraumatic. PERRLA. EOMI. no nasal discharge. No tracheal deviation or JVD noted CARDIOVASCULAR:. Regular rate and rhythm. Normal S1 and S2. No murmurs, gallops or rubs noted. RESPIRATORY:. Patient's lower lobes show significant improvements compared to yesterday, however, faint rails are still heard no wheezes or rhonchi noted ABDOMINAL:. No lesions noted. No pain upon palpation, rebound tenderness, guarding or rigidity. Normal bowel sounds noted throughout all 4 quadrants. No bruits heard EXTREMITIES:. Patient has 2/4 pedal pulses bilaterally. Normal capillary refill. No calf tenderness or swelling noted NEUROLOGICAL: A and O 3. 5/5 strength noted bilaterally PSYCHOLOGICAL: Mood: Patient claims to be back at her baseline and is in good spirits Affect: Patient's affect is congruent with her stated mood LABORATORY DATA, MICROBIOLOGY: Please see below. Imaging: CXR (03/08/2019): CXR showed CHF pattern with diffuse interstitial pulmonary edema. CXR (03/09/2019): Improvement in findings of CHF with as well as decreased size of cardiac silhouette DVT prophylaxis ordered?: Patient is managed with heparin 5000 units twice a day ASSESSMENT AND PLAN: This is a 68-year-old white female with, shortness of breath secondary to pulmonary edema and ESRD. Patient appears to be back to her baseline and feels she is ready to go home whenever. PROBLEMS: #Pulmonary edema: Patient's shortness of breath is significantly improved since her admission. She reports she is back to her baseline #Hypertensive emergency: Patient's nitroglycerin drip was discontinued yesterday and she was reinitiated on oral medications, hydralazine 50 mg by mouth 3 times a day and carvedilol 6.25 mg twice a day. Patient had one episode of severe hypertension yesterday at 2002 reading 192/80. However, today patient's blood pressure appears to be stable with Map of 106. #ESRD Today she has a BUN/creatinine reading of 41 and 5.41, respectively. Estimated GFR is 8.4. Patient is scheduled to undergo hemodialysis later today #Elevated troponin - likely 2/2 NSTEMI - likely 2/2 elevated blood pressures - Patient has received a recent cardiac catheterization; was found to have occlusion of the stent, however, had sufficient collaterals, patient also had nonsignificant stenosis of another coronary artery - Currently patient remains asymptomatic; no CP, SOB or palpitations - EKG has shown improvement in ischemic change at V5-V6 noted on admission - Troponin although trended up initially has improved - c/w ASA, Plavix and BP optimization - Case has been discussed with Cariology locally, Dr. Mendoza and with cardiology at [facility]; advised against full anticoagulation #Glaucoma. Patient had orders placed today to continue her drops of brinzolamide latano prost and prednisolone #DM2 Patient currently being managed with Levemir and sliding scale Humalog DVT prophylaxis. Heparin 5000 units bid I saw and evaluated the patient. I agree with the findings and plan of care as documented in the above note VS, I&O, 24H, Fishbone Vital Signs/I&O Vital Signs Date Time Temp Pulse Resp B/P (MAP) Pulse Ox O2 Delivery O2 Flow Rate FiO2 03/10/19 09:00 78 19 123/59 (80) 97 03/10/19 08:00 98.3 03/09/19 04:33 0.5 03/08/19 07:20 40 03/08/19 03:35 Non-Rebreather I&O- Last 24 Hours up to 6 AM 03/10/19 06:00 Intake Total 1000 ml Output Total 2300 ml Balance -1300 ml Laboratory Data 24H LABS Laboratory Tests 2 03/09/19 12:01: Bedside Glucose (Misc Panel) 276H 03/09/19 12:17: Total Creatine Kinase 70, Creatine Kinase MB 2.5, Creatine Kinase MB Relative Index 3.57, Troponin I 3.35*H 03/09/19 16:40: Bedside Glucose (Misc Panel) 259H 03/09/19 20:18: Bedside Glucose (Misc Panel) 180H 03/10/19 04:50: Nucleated Red Blood Cells % (auto) 0.0, Anion Gap 9, Glomerular Filtration Rate 8.4L, Calcium Level 9.1, Magnesium Level 2.3 CBC/BMP Laboratory Tests 03/10/19 04:50 ALEXIS FELIX-Leola Mar 10, 2019 10:54 EVELIA PORTER MD Mar 10, 2019 13:37
[2019-03-10] MEDS ORDERED: DOCUSATE SODIUM 100 MG CAP PO ONE (12:00)
--- NOTE | 2019-03-10 12:00 | IPNPDOC ---
Date Seen The patient was seen on 03/10/19. Progress Note NEPHROLOGY SERVICE PROGRESS NOTE: SUBJECTIVE: Patient was seen and examined at the bedside this morning. She had dialysis yesterday with 2000cc removed. She did get some cramping towards the end. Otherwise, she has no complaints this morning. She is not having any difficulty breathing or laying flat. She is to get another dialysis session today at the bedside. OBJECTIVE PHYSICAL EXAMINATION: VITAL SIGNS: Please see below. GENERAL APPEARANCE: Sitting up in bed, calm, cooperative, appears stated age, no acute distress HEENT: EOMI, PERRLA, neck is supple with no thyromegaly or lymphadenopathy RESPIRATORY: Faint crackles throughout both lung allred up to the middle lobes bilaterally but improved from yesterday CARDIOVASCULAR: JVD is elevated to 12-14cm at the sternal angle, RRR without murmurs/rubs/gallops ABDOMEN: Soft, nontender to palpation, no masses/organomegaly EXTREMITIES: no clubbing, cyanosis or edema noted NEUROLOGICAL: No obvious focal deficits PSYCHIATRIC: normal mood/affect Skin: No rashes or ulcers. LN: No significant cervical or inguinal lymphadenopathy LABORATORY DATA: Please see below. ASSESSMENT/PLAN: This is a 68 YO F with history of ESRD on HD who presents with chest pain and SOB found to have hypertensive emergency and pulmonary edema 1. ESRD on HD M,W,F: -Patient will get HD with goal of 1.5-2kg removed. She still has some crackles and significant JVD on exam. -Zofran PRN for nausea 2. Hypertensive emergency: BP was found to be 234/119 on admission but have come down to normal limits as of today -s/p Nitroglycerin drip -BP likely to improve more HD -Hydralazine was increased to 50mg TID -Continue Coreg, Isordil 3. Acute hypoxemic respiratory failure 2/2 Pulmonary edema: likely 2/2 fluid overload and will improve with dialysis -Fluid appears to be concentrated in her lungs. JVD is still elevated -Another echo has been ordered and has yet to be read, as she does have a history of CHF 4. Elevated troponins: peaked at 4 and trended down -Likely 2/2 stress-induced ischemia -Patient does have history of NSTEMI 5. CAD s/p multiple stents with elevated troponins: -continue Atorvastatin, ASA, Plavix 6. DM2: -Continue Levemir and SSI 7. Chronic anemia 2/2 CKD: -Continue Velphoro Dispo: Pending improvement in volume status. VS, I&O, 24H, Fishbone Vital Signs/I&O Vital Signs Date Time Temp Pulse Resp B/P (MAP) Pulse Ox O2 Delivery O2 Flow Rate FiO2 03/10/19 09:00 78 19 123/59 (80) 97 03/10/19 08:00 98.3 03/09/19 04:33 0.5 03/08/19 07:20 40 03/08/19 03:35 Non-Rebreather I&O- Last 24 Hours up to 6 AM 03/10/19 06:00 Intake Total 1000 ml Output Total 2300 ml Balance -1300 ml Laboratory Data 24H LABS Laboratory Tests 2 03/09/19 12:01: Bedside Glucose (Misc Panel) 276H 03/09/19 12:17: Total Creatine Kinase 70, Creatine Kinase MB 2.5, Creatine Kinase MB Relative Index 3.57, Troponin I 3.35*H 03/09/19 16:40: Bedside Glucose (Misc Panel) 259H 03/09/19 20:18: Bedside Glucose (Misc Panel) 180H 03/10/19 04:50: Nucleated Red Blood Cells % (auto) 0.0, Anion Gap 9, Glomerular Filtration Rate 8.4L, Calcium Level 9.1, Magnesium Level 2.3 03/10/19 11:44: Bedside Glucose (Misc Panel) 225H CBC/BMP Laboratory Tests 03/10/19 04:50 GME ATTESTATION GME ATTESTATION My faculty preceptor for this patient encounter was physically present during the encounter and was fully available. All aspects of the patient interview, examination, medical decision making process, and medical care plan development were reviewed and approved by the faculty preceptor. The faculty preceptor is aware and concurs with the plan as stated in the body of this note and will attest to such by his/her cosignature. LEILA ALBRIGHT MD Mar 10, 2019 12:00
[2019-03-10] MEDS: SUCROFERRIC OXYHYDROXIDE 500MG CHEW TAB (VELPHORO) PO SCH (17:30)
[2019-03-10] MEDS ORDERED: LATANOPROST 0.005% OPHTH SOLN 2.5 ML OD SCH (21:00)
[2019-03-10] MEDS ORDERED: BIMATOPROST OD SCH (21:00)
[2019-03-10] MEDS ORDERED: LATANOPROST 0.005% OPHTH SOLN 2.5 ML OS SCH (21:00)
[2019-03-10] MEDS: ATORVASTATIN 20 MG TAB PO SCH (21:04)
[2019-03-11 06:00] VITALS: BP 107/40
[2019-03-11 06:17] LABS: HEMATOCRIT 37.2 % (36.0-47.0); HEMOGLOBIN 11.8 g/dl (12.0-15.5); MEAN CORPUSCULAR HEMOGLOBIN 28.6 pg (27.0-33.0); MEAN CORPUSCULAR HGB CONC 31.7 g/dl (32.0-36.5); MEAN CORPUSCULAR VOLUME 90.1 fl (80.0-96.0); PLATELET COUNT, AUTOMATED 153 10^3/uL (150-450); RED BLOOD COUNT 4.13 10^6/uL (4.00-5.40); WHITE BLOOD COUNT 6.4 10^3/uL (4.0-10.0)
[2019-03-11 06:42] LABS: CALCIUM LEVEL 9.8 MG/DL (8.8-10.2); CREATININE FOR GFR 4.5 MG/DL (0.55-1.30); GLOMERULAR FILTRATION RATE 10.4 (>45); MAGNESIUM LEVEL 2.1 MG/DL (1.8-2.4); POTASSIUM SERUM 4.3 MEQ/L (3.5-5.1)
[2019-03-11] MEDS: HumaLOG INSULIN (NovoLOG) PER UNIT SC SCH ×2 (08:03→12:37)
[2019-03-11] MEDS: LEVEMIR (INSULIN DETEMIR) 1 UNITS/0.01ML SC SCH (08:03)
[2019-03-11] MEDS: HEPARIN SOD (PORCINE) 5000 UNITS/ML VIAL SQ SCH (08:03)
[2019-03-11] MEDS: ASPIRIN 81 MG ENTERIC TAB PO SCH (08:05)
[2019-03-11] MEDS: CLOPIDOGREL 75 MG TAB PO SCH (08:05)
[2019-03-11] MEDS: predniSONE 5 MG TAB PO SCH (08:05)
[2019-03-11] MEDS: FOLIC ACID 1 MG TAB PO SCH (08:05)
[2019-03-11] MEDS: BRIMONIDINE TARTRATE 0.2% OU SCH (08:07)
[2019-03-11] MEDS: TIMOLOL MALEATE 0.5% OPHTH SOLN 5 ML OU SCH (08:07)
[2019-03-11] MEDS: BRINZOLAMIDE 1 % OPHTH SUSP (AZOPT) 10ML OU SCH (08:08)
[2019-03-11] MEDS: prednisoLONE ACET 1% OPHTH SUSP 5ML OS SCH (08:08)
[2019-03-11 08:11] VITALS: BP 107/40
[2019-03-11] MEDS: ISOSORBIDE DIN. (ISORDIL) 30 MG TAB PO SCH (08:11)
[2019-03-11] MEDS: CARVedilol 6.25 MG TAB PO SCH (08:11)
[2019-03-11] MEDS: **hydrALAZINE** 50 MG TAB PO SCH (08:11)
[2019-03-11] MEDS ORDERED: **hydrALAZINE** 50 MG TAB PO SCH (09:00)
[2019-03-11] MEDS ORDERED: HYDR50TA PO (10:21)
[2019-03-11] MEDS ORDERED: CARV6.25 PO ×2 (10:21→10:41)
[2019-03-11] MEDS ORDERED: HYDR-3911 PO (10:41)
--- NOTE | 2019-03-11 10:41 | IPNPDOC ---
Date Seen The patient was seen on 03/11/19. Progress Note EPHROLOGY SERVICE PROGRESS NOTE: SUBJECTIVE: Patient was seen and examined at the bedside this morning. She was transferred out of the ICU yesterday. She also had HD yesterday with 1500cc removed. She reports she is still getting leg cramps usually at the end of dialysis. She is ready to go home toady. She has questions about taking her home medications before and after outpatient dialysis and all her questions were answered. She has no complaints of shortness of breath or urinary issues today. OBJECTIVE PHYSICAL EXAMINATION: VITAL SIGNS: Please see below. GENERAL APPEARANCE: Sitting up in bed, calm, cooperative, appears stated age, no acute distress HEENT: EOMI, PERRLA, She has left-sided bells' palsy; neck is supple with no thyromegaly or lymphadenopathy RESPIRATORY: Clear to auscultation bilaterally with no adventitious breath sounds appreciated CARDIOVASCULAR: JVD is measured at ~10cm at the sternal angle, decreased from yesterday; RRR without murmurs/rubs/gallops ABDOMEN: Soft, nontender to palpation, no masses/organomegaly EXTREMITIES: no clubbing, cyanosis or edema noted NEUROLOGICAL: No obvious focal deficits PSYCHIATRIC: normal mood/affect Skin: No rashes or ulcers. LN: No significant cervical or inguinal lymphadenopathy LABORATORY DATA: Please see below. ASSESSMENT/PLAN: This is a 68 YO F with history of ESRD on HD who presents with chest pain and SOB found to have hypertensive emergency and pulmonary edema 1. ESRD on HD M,W,F: -Patient's fluid status has improved and she is no longer having SOB or orthopnea. She appears more euvolemic on exam. If she is discharged today, she is to resume her normal dialysis routine in the outpatient setting. -Zofran PRN for nausea 2. Hypertension with ESRD: BP was found to be 234/119 on admission but is now around 100s systolic over 40s-50s -s/p Nitroglycerin drip -Hydralazine was decreased to 50 BID (instead of TID) as her blood pressures have been somewhat low -Continue Coreg, Isordil 3. Acute hypoxemic respiratory failure 2/2 Pulmonary edema: likely 2/2 fluid overload and has improved with dialysis -Lungs are clear today with JVD decreased -Consider follow up echocardiogram in the outpatient setting after discharge for her prior history of heart failure 4. Elevated troponins: peaked at 4 and trended down -Likely 2/2 stress-induced ischemia -Patient does have history of NSTEMI 5. CAD s/p multiple stents with elevated troponins: -continue Atorvastatin, ASA, Plavix 6. DM2: -Continue Levemir and SSI 7. Chronic Kidney disease Min[place] Bone disease: -Continue Velphoro Dispo: Patient's fluid status has improved with dialysis and she is cleared to be discharged from a Nephrology standpoint. She is to continue dialysis as per her normal M,W, F schedule and follow up with Nephrology in a few weeks. VS, I&O, 24H, Fishbone Vital Signs/I&O Vital Signs Date Time Temp Pulse Resp B/P (MAP) Pulse Ox O2 Delivery O2 Flow Rate FiO2 03/11/19 08:11 107/40 03/11/19 06:00 97.5 56 18 99 03/09/19 04:33 0.5 03/08/19 07:20 40 03/08/19 03:35 Non-Rebreather I&O- Last 24 Hours up to 6 AM 03/11/19 06:00 Intake Total 420 ml Output Total 1500 ml Balance -1080 ml Laboratory Data 24H LABS Laboratory Tests 2 03/10/19 11:44: Bedside Glucose (Misc Panel) 225H 03/10/19 17:21: Bedside Glucose (Misc Panel) 162H 03/10/19 20:00: Bedside Glucose (Misc Panel) 231H 03/11/19 05:27: Nucleated Red Blood Cells % (auto) 0.0, Anion Gap 7L, Glomerular Filtration Rate 10.4L, Calcium Level 9.8, Magnesium Level 2.1 CBC/BMP Laboratory Tests 03/11/19 05:27 GME ATTESTATION GME ATTESTATION My faculty preceptor for this patient encounter was physically present during the encounter and was fully available. All aspects of the patient interview, examination, medical decision making process, and medical care plan development were reviewed and approved by the faculty preceptor. The faculty preceptor is aware and concurs with the plan as stated in the body of this note and will attest to such by his/her cosignature. LEILA ALBRIGHT MD Mar 11, 2019 10:41 ROSA JONES MD Mar 12, 2019 12:22
--- NOTE | 2019-03-11 15:10 | DS.PDOC ---
Discharge Summary General Date of Admission Mar 08, 2019 at 03:36 Date of Discharge 03/11/19 Attending Physician: EVELIA PORTER MD Discharge Summary PROCEDURES PERFORMED DURING STAY: Bedside dialysis ADMITTING DIAGNOSES: Pulmonary edema Hypertensive urgency End-stage renal disease DISCHARGE DIAGNOSES: Pulmonary edema Hypertensive emergency Hypoxemic respiratory failure Elevated troponins Coronary artery disease Glaucoma Diabetes type 2 End-stage renal disease on dialysis COMPLICATIONS/CHIEF COMPLAINT: Esrd On Dialysis, Pulmonary Edema. HISTORY OF PRESENT ILLNESS: Patient is a 68-year-old white female presented to the hospital on 03/08/19 with a chief complaint of shortness of breath and left-sided chest pain. Patient was recently hospitalized and discharged on 12/14/18 after being treated for acute pulmonary edema. Patient stated that her chest pain was sharp in nature and radiated toward her back. She stated that it was persistent despite nitroglycer in administration. There was no association with diet or ambulation. She also reported diaphoresis. She states that she took to not nitroglycerin with minimal relief and decided to present to the emergency department. Patient does have end-stage renal disease and is coming hemodialysis. Her last hemodialysis was done 03/05/19 without issue. In the emergency department, patient was found to have significant hypertension. Patient was admitted to the ICU and placed on nitroglycerin drip to help reduce blood pressure and decrease preload. Nephrology was consulted for further dialysis. HOSPITAL COURSE: Later in the morning following patient's admission to the ICU, patient was noted to have mildly elevated troponins continued to increase over the next several hours. She also demonstrated some ST segment depression, all of which are likely secondary to patient's elevated blood pressure. The patient remained a symptomatically throughout, no chest pains or is of breath or palpitations. EKG showed improvement and ischemic changes. Patient was continued on aspirin, Plavix. The case was discussed with cardiology at [facility] who advised against full anticoagulation. Patient's blood pressure was optimized using a nitroglycerin drip. This was transitioned to her home medications and was found to be unsuccessful. Patient's home medications were titrated, increasing her hydralazine to 50 mg 3 times a day and doubling her dose of carvedilol. With the after mentioned changes, patient was able to successfully transitioned off the nitroglycerin drip. Patient did receive bedside dialysis while in the ICU. With improvement of patient's pressures, she was moved to the [facility] floor. Night prior to patient's discharge, blood pressure remained stable without any events noted overnight. Discharge and follow-up with patient's primary care provider nephrology was discussed with the patient was in agreement with plan. Patient to continue on adjusted medications as prescribed on discharge. All questions regarding patient's hospital stay and clinical cou rse were answered. DISCHARGE MEDICATIONS: Please see below. ALLERGIES: Please see below. PHYSICAL EXAMINATION ON DISCHARGE: VITAL SIGNS: Please see below. GENERAL: Patient was interviewed and examined in her hospital room this morning. Patient was found to be seated upright in bed in no acute distress. Patient was quite conversant, able to answer questions regarding her medical care. HEENT: Normocephalic, atraumatic, sclera nonicteric, EOMI, mucous membranes moist CARDIOVASCULAR:. Regular rate and rhythm. Normal S1 and S2. No murmurs, gallops or rubs noted. RESPIRATORY:. Patient's lower lobes show significant improvements compared to yesterday, however, faint rails are still heard no wheezes or rhonchi noted. ABDOMINAL:. No lesions noted. No pain upon palpation, rebound tenderness, guarding or rigidity. Normal bowel sounds noted throughout all 4 quadrants. No bruits heard EXTREMITIES:. Patient has 2/4 pedal pulses bilaterally. Normal capillary refill. No calf tenderness or swelling noted. NEUROLOGICAL: A and O 3. 5/5 strength noted bilaterally PSYCHOLOGICAL: Mood: Patient claims to be back at her baseline and is in good spirits Affect: Patient's affect is congruent with her stated mood LABORATORY DATA: Please see below. IMAGING: CXR (03/08/2019): CXR showed CHF pattern with diffuse interstitial pulmonary edema. CXR (03/09/2019): Improvement in findings of CHF with as well as decreased size of cardiac silhouette PROGNOSIS: Fair ACTIVITY: As tolerated DIET: Low sodium diet DISPOSITION: Home, Self-Care. DISCHARGE INSTRUCTIONS: Please follow-up with primary care provider in 5-7 days Please follow-up with nephrology in 1 week. Please increase your Carvedilol to 6.25 mg twice daily. Please increase your Hydralazine to 50 mg three times daily Please continue your other medications as prescribed. Please continue hemodialysis on Wednesdays and Fridays. Please return to the ED should your previous symptoms return. Thank you for allowing us to participate in your care. DISCHARGE CONDITION: Stable TIME SPENT ON DISCHARGE: Greater than 35 minutes. Vital Signs/I&Os Vital Signs Date Time Temp Pulse Resp B/P (MAP) Pulse Ox O2 Delivery O2 Flow Rate FiO2 03/11/19 08:11 107/40 03/11/19 06:00 97.5 56 18 99 03/09/19 04:33 0.5 03/08/19 07:20 40 03/08/19 03:35 Non-Rebreather I&O- Last 24 Hours up to 6 AM 03/11/19 06:00 Intake Total 420 ml Output Total 1500 ml Balance -1080 ml Laboratory Data Labs 24H Laboratory Tests 2 03/10/19 17:21: Bedside Glucose (Misc Panel) 162H 03/10/19 20:00: Bedside Glucose (Misc Panel) 231H 03/11/19 05:27: Nucleated Red Blood Cells % (auto) 0.0, Anion Gap 7L, Glomerular Filtration Rate 10.4L, Calcium Level 9.8, Magnesium Level 2.1 CBC/BMP Laboratory Tests 03/11/19 05:27 FSBS Laboratory Tests Test 03/10/19 17:21 03/10/19 20:00 Range/Units Bedside Glucose (Misc Panel) 162 231 80-115 MG/DL Discharge Medications Scheduled Aspirin (Aspirin EC) 81 Mg Tab, 81 MG PO DAILY, (Reported) Atorvastatin Calcium (Atorvastatin Calcium) 20 Mg Tab, 20 MG PO QHS, (Reported) Bimatoprost (Lumigan) 50 Drop/2.5 Ml Ana Paula, 1 DROP OD QHS, (Reported) Brimonidine Tartrate (Brimonidine Tartrate) 0.2 % Ana Paula, 1 DROP OU TID, (Reported) Brinzolamide (Azopt) 1 % Loraine, 1 DROP OU BID, (Reported) Carvedilol (Carvedilol) 6.25 Mg Tablet, 6.25 MG PO BID Cholecalciferol (Vitamin D3) (Vitamin D3) 50,000 Unit Cap, 50,000 UNIT PO 1XMONTH, (Reported) Clopidogrel Bisulfate (Plavix) 75 Mg Tablet, 75 MG PO DAILY, (Reported) Folic Acid (Folic Acid) 1 Mg Tab, 1 MG PO DAILY, (Reported) Folic Acid/Vit B Complex and C (Jenni-Tres Tablet) 1 Tab Tab, 1 TAB PO DAILY, (Reported) Hydralazine HCl (Hydralazine HCl) 50 Mg Tablet, 50 MG PO TID Insulin Glargine,Hum.rec.anlog (Lantus Solostar) 100 Unit/Ml Inj, 6 UNITS SC D AILY, (Reported) Insulin Lispro (Humalog Kwikpen U-100) 100 Unit/Ml Inj, 1 DOSE SC AC, (Reported) SLIDING SCALE PER HOME REGIMEN Isosorbide Dinitrate (Isosorbide Dinitrate) 30 Mg Tablet, 30 MG PO BID, (Reported) Prednisolone Acetate (Pred Forte 1% Opth Susp) 1 % Loraine, 1 DROP OS QAM, (Repor guzman) Prednisone (Prednisone) 5 Mg Tab, 5 MG PO DAILY, (Reported) Sucroferric Oxyhydroxide (Velphoro) 500 Mg Tab.chew, 500 MG PO QPM, (Reported) AT DINNER Timolol Maleate (Timolol Maleate) 0.5 % Ana Paula, 1 DROP OU BID, (Reported) Scheduled PRN Nitroglycerin (Nitrostat) 0.4 Mg Subl, 0.4 MG SL NITRO PRN for CHEST PAIN, (Reported) Allergies Coded Allergies: No Known Allergies (Unverified , 12/10/18) GME ATTESTATION GME ATTESTATION I saw and evaluated the patient. I agree with the findings and plan of care as documented in the documenters note. I spent 45 minutes coordinating this patient's discharge. JUAN MIGUEL HELLER DO Mar 11, 2019 15:10 EVEILA PORTER MD Mar 12, 2019 13:09
--- NOTE | 2019-03-11 23:40 | ECHO ---
DATE OF PROCEDURE: 03/08/2019 REFERRING PHYSICIAN: Dr. Toney Chung INDICATION: Heart failure, unspecified. HEIGHT: 147 cm WEIGHT: 51.8 kg 2D MEASUREMENTS: Left atrium: 3.1 cm Ventricular septum: 1.39 cm Posterior wall: 0.99-1.33 cm Aortic root: 2.6 cm Proximal ascending aorta: 2.5 cm Left atrial volume index: 35 Inferior vena cava: 1.1 cm DOPPLER MEASUREMENTS: Aortic valve velocity: 161 cm/s Very mild mitral regurgitation. No aortic regurgitation. Mitral E velocity: 84.0 cm/s Mitral A velocity: 121 cm/s Moderate tricuspid regurgitation. Estimated right ventricle systolic pressure: 47 mmHg assuming a pressure of 10 mmHg. MITRAL ANNULAR TISSUE DOPPLER: E prime septal: 5.55 cm/s DESCRIPTION: Rhythm was sinus with some premature ventricular contractions (PVCs). Image quality was fair. No arch views were obtainable. CONCLUSIONS: 1. Mild concentric left ventricle hypertrophy. Akinesis to severe hypokinesis of the basal inferolateral segment of the left ventricle with normal wall motion and wall thickening elsewhere. Preserved overall left ventricular (LV) systolic function. Left ventricular ejection fraction (LVEF) 60% by visual estimate. Grade 1 LV diastolic dysfunction (impaired relaxation filling pattern). 2. Small left pericardial effusion measuring 0.7 cm over the posterobasal region. 3. Moderate left atrial dilatation by left atrial volume index. 4. Suggestive of moderate elevation of estimated right ventricle systolic pressure. 5. Mild mitral annular calcification. Very mild mitral regurgitation. 6. Mild aortic valve sclerosis of a 3-cusp aortic valve. No aortic regurgitation. 7. Left pleural effusion.
== END 2019-03-11 13:30 | disposition home or self-care (01) | DRG 280 ==
LOC: M ED 02:27 → M ED INP 03:36 → M ICU 04:50 → M MSPAV 03-10 14:02
PROVIDERS: ADMIT Internal Medicine; ATTEND Internal Medicine
PROC: 5A1D90Z Performance of Urinary Filtration, Continuous, Greater than 18 hours Per Day (ICD-10-PCS; principal; 2019-03-08)
DX: I16.1 Hypertensive emergency (principal); I21.4 Non-ST elevation (NSTEMI) myocardial infarction; J96.01 Acute respiratory failure with hypoxia; N18.6 End stage renal disease; J81.1 Chronic pulmonary edema; I13.2 Hypertensive heart and chronic kidney disease with heart failure and with stage 5 chronic kidney disease, or end stage renal disease; E11.22 Type 2 diabetes mellitus with diabetic chronic kidney disease; E87.70 Fluid overload, unspecified; I50.9 Heart failure, unspecified; I25.10 Atherosclerotic heart disease of native coronary artery without angina pectoris; M06.9 Rheumatoid arthritis, unspecified; E78.5 Hyperlipidemia, unspecified; H40.9 Unspecified glaucoma; K21.9 Gastro-esophageal reflux disease without esophagitis; D63.1 Anemia in chronic kidney disease; Z79.4 Long term (current) use of insulin; Z79.899 Other long term (current) drug therapy; Z79.82 Long term (current) use of aspirin; Z79.01 Long term (current) use of anticoagulants; Z79.52 Long term (current) use of systemic steroids; Z91.11 Patient's noncompliance with dietary regimen; Z95.5 Presence of coronary angioplasty implant and graft; Z86.79 Personal history of other diseases of the circulatory system; Z99.2 Dependence on renal dialysis

== ENCOUNTER 2019-04-06 11:21 | Day surgery (SDC) | payer MEDICARE ==
[~2019-04-06] VITALS: Ht 149.9 cm; Wt 49.0 kg
[~2019-04-06 11:21] MED LIST changes: +CARV6.25 PO; +D5W/0.2% SODIUM CHLORIDE 1,000 ML IV ONE; +HYDR-3910 PO; +HYDR-3911 PO; +HYDR50TA PO; +ISOS30TAB PO; +LIDOCAINE 2% INJ 100 MG/5 ML SDV (FOR ANES.) As Ordered ONE; +MIDAZOLAM INJ 2 MG/2 ML VIAL (J2250) As Ordered ONE; +ONDANSETRON 4MG/2ML VIAL (J2405) As Ordered ONE; +PROPOFOL 200 MG/20 ML VIAL As Ordered ONE; +VELP5CHW PO; +ceFAZolin SOD 2 GM in IV 1 EA IV ONE; +dexameTHASONE 4 MG/ML 1ML VIAL (J1100) As Ordered ONE; +fentaNYL 250 MCG/5 ML INJECTION (J3010) As Ordered ONE
[2019-04-06] MEDS ORDERED: HEPARIN SOD (PORCINE) 5000 UNITS/ML VIAL As Ordered ONE (13:05)
[2019-04-06] MEDS ORDERED: BUPIVACAINE/EPIN 0.5% 30 ML VIAL As Ordered ONE (13:05)
[2019-04-06] MEDS ORDERED: CALCIUM CHLORIDE 10% 1 GM/10 ML SYR As Ordered ONE (13:50)
[2019-04-06] MEDS ORDERED: ePHEDrine SULFATE 25 MG/5 ML(5MG/ML) SYRINGE As Ordered ONE (14:08)
[2019-04-06] MEDS ORDERED: OXYC1TAB23 PO (16:07)
[2019-04-06] MEDS ORDERED: METOCLOPRAMIDE INJ 10MG/2ML VIAL (J2765) IV PRN (16:15)
[2019-04-06] MEDS ORDERED: ONDANSETRON 4MG/2ML VIAL (J2405) IV PRN (16:15)
[2019-04-06] MEDS ORDERED: D5W/0.45% SODIUM CHLORIDE 1,000 ML IV SCH (16:15)
[2019-04-06] MEDS ORDERED: PERCOCET 5MG/325MG TAB PO PRN (16:15)
[2019-04-06] MEDS ORDERED: fentaNYL 100 MCG/2 ML INJECTION (J3010) IV PRN (16:15)
--- NOTE | 2019-04-06 16:17 | ROOPDOC ---
[facility] Report Of Operation Report of Operation DATE OF PROCEDURE: 04/06/19 PREPROCEDURE DIAGNOSES: End-stage renal disease, right brachial basilic AV fistula too deep for cannulation. POSTPROCEDURE DIAGNOSES: Same. PROCEDURE: Right basilic vein transposition. SURGEON: Khalida Spencer MD ANESTHESIA: Gen. anesthesia and local. INDICATION FOR PROCEDURE: Ms. Johnson is a very pleasant 68-year-old patient with a right brachial basilic AV fistula too deep for cannulation. Risks benefits and alternatives to a basilic vein transposition were explained to the patient and she is agreeable to proceed. Informed consent was obtained. REPORT OF OPERATION: Patient was brought to the OR in stable condition and anesthesia and antibiotics were administered without complication. Her right upper extremity was prepped and draped in a sterile fashion. A timeout was performed. Local anesthesia was yarn man to skin and subcutaneous tissue over the basilic vein where there was an excellent thrill. A skin knife was used to make an incision over the vein and carried down to subcutaneous tissue with Bovie cautery. The cellophane was identified and skeletonized proximal and distally within the incision. Branches were suture ligated and divided. The nervous structures were preserved. Bulldog clamps were placed proximally and distally. The vein was transected near the AV anastomosis with a long bevel. We then used a curved tunneler to tunnel the vein from the axilla towards the AV anastomosis over the bicep. We then reanastomosed the proximal and distal and with 6-0 Prolene suture. Before the final sutures replace we flushed the inflow and outflow of the artery. The final sutures replace a good hemostasis was noted. Next, we copiously irrigated the incision and Bovie cautery was used for hemostasis were needed. Additional local anesthesia was yarn man to skin and subcutaneous tissue. The deep fascia was approximated with a running Vicryl suture. The deep space was closed with interrupted Vicryl sutures. The subcutaneous layer was closed with a running Vicryl suture. The deep dermal layer was approximated with interrupted Vicryl sutures and the skin was closed in running subcuticular Monocryl suture. The incision was clean and dry and Steri-Strips and Mastisol were used to dress the length of the incision and dry gauze and Tegaderms were placed over as a final dressing. There is a fairly weak thrill through the fistula which is not uncommon after transposition, but there was good flow on Doppler. Hopefully this will continue to improve over the next week. The patient's hand was warm and well-perfused. She was allowed to awaken from anesthesia was taken to PACU in stable condition. ESTIMATED BLOOD LOSS: Approximately 25 mL. COMPLICATIONS: None. DRAINS: None SPECIMENS: None PLAN: We will see the patient back in a week and check her fistula and incision. She should continue to use a squeeze ball to help with maturation. She should not do any strenuous exercise until the incision is completely healed. She should not drive while taking narcotics. A prescription for Percocet has been sent. KHALIDA SPENCER MD Apr 06, 2019 16:17
[2019-04-06 18:00] VITALS: BP 134/62
== END 2019-04-06 18:05 | disposition home or self-care (01) ==
LOC: M SDC 11:21
PROVIDERS: ATTEND Surgery Vascular Surgery
DX: T82.898A Other specified complication of vascular prosthetic devices, implants and grafts, initial encounter (principal); N18.6 End stage renal disease; I12.0 Hypertensive chronic kidney disease with stage 5 chronic kidney disease or end stage renal disease; E11.22 Type 2 diabetes mellitus with diabetic chronic kidney disease; M12.9 Arthropathy, unspecified; E78.5 Hyperlipidemia, unspecified; I25.10 Atherosclerotic heart disease of native coronary artery without angina pectoris; I25.2 Old myocardial infarction; D64.9 Anemia, unspecified; H40.9 Unspecified glaucoma; R29.810 Facial weakness; M85.80 Other specified disorders of bone density and structure, unspecified site; Z79.899 Other long term (current) drug therapy; Z79.82 Long term (current) use of aspirin; Z79.4 Long term (current) use of insulin; Z79.01 Long term (current) use of anticoagulants; Z99.2 Dependence on renal dialysis; Z95.5 Presence of coronary angioplasty implant and graft; Z87.81 Personal history of (healed) traumatic fracture; Z78.0 Asymptomatic menopausal state; X58.XXXA Exposure to other specified factors, initial encounter; Y93.9 Activity, unspecified; Y92.9 Unspecified place or not applicable; Y99.9 Unspecified external cause status
CPT/HCPCS: 36415; 36819; 84132; J0690; J1100; J2250; J2405; J3010

== ENCOUNTER → 2019-07-13 | Outpatient (CLI) | payer MEDICARE ==
[~2019-07-13] MED LIST changes: +BISO5TAB14 PO; -BISO5TAB9 PO; -D5W/0.2% SODIUM CHLORIDE 1,000 ML IV ONE; -FENO145T13 PO; +FENO145T7 PO; +HEPARIN 1,000 UNITS/ML 10ML VIAL (FOR RADIOLOGY& DIALYSIS ONLY)(J1644-10) As Ordered ONE; +ISOVUE-300 61% 50ML VIAL (Q9967) As Ordered ONE; +LIDOCAINE 1% MDV 20ML VIAL As Ordered ONE; -LIDOCAINE 2% INJ 100 MG/5 ML SDV (FOR ANES.) As Ordered ONE; -ONDANSETRON 4MG/2ML VIAL (J2405) As Ordered ONE; +OXYC1TAB23 PO; -PROPOFOL 200 MG/20 ML VIAL As Ordered ONE; -ceFAZolin SOD 2 GM in IV 1 EA IV ONE; -dexameTHASONE 4 MG/ML 1ML VIAL (J1100) As Ordered ONE; +fentaNYL 100 MCG/2 ML INJECTION (J3010) As Ordered ONE; -fentaNYL 250 MCG/5 ML INJECTION (J3010) As Ordered ONE
[2019-07-13 13:20] VITALS: BP 173/74
--- NOTE | 2019-07-13 13:36 | ROOPDOC ---
[facility] Report Of Operation Report of Operation DATE OF PROCEDURE: 07/13/19 PREPROCEDURE DIAGNOSES: End-stage renal disease with poor maturation right upper extremity AV fistula POSTPROCEDURE DIAGNOSES: Same PROCEDURE: 1. Ultrasound-guided access right basilic vein 2. Fistulogram and central venogram 3. Angioplasty basilic vein was 7 x 100 Andale balloon 4. Completion venogram SURGEON: Tess Spencer MD ANESTHESIA: Local anesthesia 2 mL lidocaine. Moderate intravenous conscious sedation was administered by Dr. Spencer. The patient was independently monitored by a registered nurse assigned to the Department of radiology using automated blood pressure, EKG, and pulse oximetry. The detailed sedation record is permanently stored in the hospital information system. The following is the brief sedation record: Start time 12:02, stop time 12:32, Versed 1 mg IV, fentanyl 50 g IV. INDICATION FOR PROCEDURE: This is a very pleasant 68-year-old patient with multiple failed fistulas in the left upper extremity, who recently underwent transposition of her right upper extremity brachial basilic AV fistula. Initially, the patient had a good thrill and healed well, but we noticed she was having more pulsatility in the fistula and it was not really maturing as expected. It was still fairly small. On ultrasound in clinic, the vein appeared to be 5-6 mm diameter, which was still a bit small. We also noted a stenosis at the proximal basilic vein. We discussed the risks benefits and alternatives to a fistulogram and attempted intervention to improve maturation flow in the fistula. The patient was agreeable to proceed. Informed consent was obtained. INTERPRETATION: 1. AV anastomosis is widely patent but the basilic vein proximal to the AV anastomosis is intermittently stenotic and small. The transposed portion of the vein is about 5-6 mm diameter, and no focal stenoses are noted. The proximal basilic vein towards the upper arm has a 1 cm focal near occlusive stenosis. Some contrast does pass the stenosis, but it is extremely tight. The central veins are widely patent. 2. After angioplasty of the basilic vein with a 7 x 100 Andale balloon, we were not able to open the tight stenosis in the proximal basilic vein. Despite the fairly aggressive angioplasty, we were unsuccessful in opening the stenosis, and the vein was a bit fragile and the patient had a considerable amount of pain with angioplasty, therefore I was worried about rupturing the vein with further attempts to open the area. 3. Completion arteriograms did not show extravasation, nor did they show improve flow through the tight stenosis in the proximal basilic vein despite multiple angioplasties. REPORT OF OPERATION: Patient was brought to the angiographic suite in stable condition and placed supine on the fluoroscopic table. Her right upper extremity was prepped and draped in a sterile fashion. A timeout was performed. Local anesthesia was a surface hydrologist to skin and subcutaneous tissue over the basilic vein in the upper arm and a microneedle was used to access the vein under ultrasound guidance. A wire was passed through this access and the needle was removed and a micro-sheath was placed. Through this access, we advanced a Glidewire and the central system under fluoroscopic guidance and the sheath was exchanged for 6 [place] sheath and flushed with saline. A fistulogram and central venogram were performed. Please interpretation above. With best a 7 x 100 Andale balloon across proximal basilic vein and did a three-minute inflations at high atmospheres and were not able to improve the stenoses in this area. We attempted to angioplasty a second time and the patient did have considerable pain so we used a lower atmosphere pressure. We still did not see much improvement in flow. We left the balloon across the stenosis and injected through the balloon and found the central veins were widely patent with good rapid flow through to the heart. There was an area where the basilic vein had been tied were there appeared to be a small pseudoaneurysm after angioplasty in the mid arm, and gentle manual pressure was held over this area for 2 minutes and following this the pseudoaneurysm had resolved. No extravasation was noted the vein was not ruptured. The patient tolerated this well with light sedation. At this point I felt the vein was too fragile for further angioplasty and likely we would not be successful with out more aggressive cutting balloons or angioplasty which may result in ruptured the vein crating a surgical emergency. I felt it best to stop at this point as the vein was very small, fragile, and poorly matured. The suture was placed at the access site in the sheath was removed. Pressure was held for 5 minutes and sterile dressings were applied. The patient was taken to recovery in stable condition. ESTIMATED BLOOD LOSS: Approximately 2 mL. COMPLICATIONS: None. PLAN: I had a long discussion with the patient and her after the procedure. She went through an extensive number of procedures to try and get and access to work in her left upper extremity, and unfortunately she had multiple failures with access attempts leading to infiltrations and severe bleeding episo lc in the upper extremity. I was hoping that we may have better lock on the right upper extremity, but I am worried we will have similar outcomes due to the small nature of the vein. With a proximal stenosis, the vein towards the AV anastomosis should dilate considerably due to limited outflow, but we do not see this dilation. I'm afraid that the current size of the vein is as large as it will get. Certainly, if we do a surgical intervention to relieve the outflow at the proximal basilic vein, that we'll relieve the pressure in the vein and will likely again not note any improvement in size. Because her veins are small and fragile, I think they will be difficult to access. She said when they tried to access the veins in her left arm, think frequently missed the veins and caused significant infiltrations and damage, which resulted in weeks of pain for her. After this long discussion, I think the best option for the patient is to place an AV graft. She has good outflow to the central system and her arterial flow is good, I think this may be the best option for her. We will set this up in clinic. She can continue to use her PermCath for now. TESS SPENCER MD Jul 13, 2019 13:36
== END ==
LOC: M IRPRO 11:11
PROVIDERS: ATTEND Surgery Vascular Surgery
DX: T82.590A Other mechanical complication of surgically created arteriovenous fistula, initial encounter (principal); N18.6 End stage renal disease; X58.XXXA Exposure to other specified factors, initial encounter; Y93.9 Activity, unspecified; Y92.9 Unspecified place or not applicable; Y99.9 Unspecified external cause status
CPT/HCPCS: 36902; 99152; 99153; C1725; C1769; C1894; J1644; J2250; J3010; Q9967

== ENCOUNTER → 2019-08-04 | Outpatient (CLI) | payer MEDICARE ==
[~2019-08-04] MED LIST changes: -ISOVUE-300 61% 50ML VIAL (Q9967) As Ordered ONE; +ceFAZolin 1GM INJ (J0690 PER 500MG) As Ordered ONE; +diphenhydrAMINE INJ 50MG/ML VIAL (J1200) As Ordered ONE
--- NOTE | 2019-08-04 07:45 | IRHP ---
[facility] IR Pre-Procedure H & P General Date of Service: Aug 04, 2019 Procedure: Same Day Surgery Interval History and Physical I have seen the patient and reviewed last H & P performed within 30 days. There is no significant interval change. History of Present Illness Chief Complaint The patient is a 69-year-old female admitted with a reason for visit of Leaking Perm Cath Site. PRE-PROCEDURE DIAGNOSIS: RF HEART: normal rate. LUNGS: normal breathing at rest. ASA Classification ASA Classification: III-Severe systemic dis. Mallampati Score: II NPO: Yes Problems with prior sedation: No Obstructive Sleep Apnea: No Plan moderate sedation Allergies Coded Allergies: No Known Allergies (Unverified , 04/01/19) Home Medications Scheduled Aspirin (Aspirin EC), 81 MG PO DAILY, (Reported) Atorvastatin Calcium (Atorvastatin Calcium), 20 MG PO QHS, (Reported) Bimatoprost (Lumigan), 1 DROP OD QHS, (Reported) Brimonidine Tartrate (Brimonidine Tartrate), 1 DROP OU TID, (Reported) Brinzolamide (Azopt), 1 DROP OU BID, (Reported) Carvedilol (Carvedilol), 3.125 MG PO BID, (Reported) Cholecalciferol (Vitamin D3) (Vitamin D3), 50,000 UNIT PO 1XMONTH, (Reported) Clopidogrel Bisulfate (Plavix), 75 MG PO DAILY, (Reported) Folic Acid (Folic Acid), 1 MG PO DAILY, (Reported) Folic Acid/Vit B Complex and C (Jenni-Tres Tablet), 1 TAB PO DAILY, (Reported) Hydralazine HCl (Hydralazine HCl), 25 MG PO BID, (Reported) Insulin Glargine,Hum.rec.anlog (Lantus Solostar), 5 UNITS SC QHS, (Reported) Insulin Lispro (Humalog Kwikpen U-100), 1 DOSE SC AC, (Reported) Prednisolone Acetate (Pred Forte 1% Opth Susp), 1 DROP OS QAM, (Reported) Sucroferric Oxyhydroxide (Velphoro), 500 MG PO QPM, (Reported) Timolol Maleate (Timolol Maleate), 1 DROP OU BID, (Reported) Scheduled PRN Nitroglycerin (Nitrostat), 0.4 MG SL NITRO PRN for CHEST PAIN, (Reported) Discontinued Medications Oxycodone HCl/Acetaminophen (Oxycodone-Acetaminophen 5-325), 1 TAB PO QIDP PRN for pain Discontinued Reason: Pt states not taking VS, I&O, 24H, Fishbone Vital Signs/I&O Vital Signs Date Time Temp Pulse Resp B/P (MAP) Pulse Ox O2 Delivery O2 Flow Rate FiO2 08/04/19 07:06 98.9 82 18 97 Room Air Laboratory Data 24H LABS Laboratory Tests 2 08/04/19 07:05: Bedside Glucose (Misc Panel) 74L CAITIE ARZATE MD Aug 04, 2019 07:45
[2019-08-04 10:30] VITALS: BP 173/78
--- NOTE | 2019-08-05 14:39 | POST-OPPD ---
Postoperative Procedure Note Date Of Procedure: Aug 04, 2019 Time Of Procedure: 14:37 PREOPERATIVE DIAGNOSIS: RF. broken perm cath exterior POSTOPERATIVE DIAGNOSIS: same FINDINGS: same. Right IJ perm PROCEDURE: right IJ perm cath exchange. catheter ready to use SURGEON: nadeen ANESTHESIA: mod sed ESTIMATED BLOOD LOSS: < 5 ml COMPLICATIONS: none POSTOPERATIVE CONDITION: stable CAITIE ARZATE MD Aug 05, 2019 14:39
--- NOTE | 2019-08-05 16:38 | REP ---
IR Permcath Exchange. IR Permcath exchange under fluoroscopy guidance. IR moderate sedation. Clinical information: Renal failure. Dialysis catheter broken externally. Physician: Dr. Kent. Procedure: The patient was advised of the benefits, risks and alternatives of the procedure and informed consent was obtained. The time-out was performed with verification of the patient's name, MRN, site of procedure and type of procedure to be performed. The patient was positioned in the supine position on the angiographic table. The site was prepped and draped in the usual sterile fashion. Moderate sedation was performed by the physician including the presence of an independent trained observer who assisted in monitoring the patient's level of consciousness and physiologic status. Following the administration of fentanyl and Versed , the physician spent 45 minutes of continuous face to face time with the patient. A workers compensation examiner radiograph reveals a left sided PermCath. Tip in the right atrium. The heparin flushes was aspirated from the catheter. Two Amplatz wires were advanced through the catheter into the inferior vena cava under fluoroscopy guidance. The sutures holding the catheter in place were cut and blunt dissection of the cuff was performed using hemostats. The catheter was removed over the wire. A new 23 cm glide cath dialysis catheter was advanced over the wire using fluoroscopy guidance. The tip was positioned in the right atrium. The wires were then removed. The catheter was sutured in position with 2-0 Prolene. Both ports aspirated and flushed easily. At the conclusion of the procedure, the catheter was locked with high-dose heparin. The patient tolerated the procedure well and was returned to the PRU in stable condition. EBL: < 5 ml. Complications: None. Conclusion: Successful exchange of preexisting left sided PermCath. The catheter is ready for immediate use. Thank you this referral. Electronically Signed by Petra Kent MD 08/05/2019 04:37 P
== END ==
LOC: M IRPRO 06:24
PROVIDERS: ATTEND Internal Medicine Nephrology
DX: T82.43XA Leakage of vascular dialysis catheter, initial encounter (principal)
CPT/HCPCS: 36800; 99152; 99153; C1750; C1769; J0690; J1644; J2250; J3010

== ENCOUNTER → 2019-12-16 | Outpatient (CLI) | payer MEDICARE ==
[~2019-12-16] MED LIST changes: -AMLO10TA5 PO; +AMLO1TAB25 PO; -HEPARIN 1,000 UNITS/ML 10ML VIAL (FOR RADIOLOGY& DIALYSIS ONLY)(J1644-10) As Ordered ONE; -LIDOCAINE 1% MDV 20ML VIAL As Ordered ONE; -MIDAZOLAM INJ 2 MG/2 ML VIAL (J2250) As Ordered ONE; +PANT40TA29 PO; -PANT40TA3 PO; +PRED5PAK PO; +RENOCAP PO; +VITA50005 PO; -ceFAZolin 1GM INJ (J0690 PER 500MG) As Ordered ONE; -diphenhydrAMINE INJ 50MG/ML VIAL (J1200) As Ordered ONE; -fentaNYL 100 MCG/2 ML INJECTION (J3010) As Ordered ONE
--- NOTE | 2019-12-16 09:28 | REP ---
RENAL SONOGRAPHY WITH RENAL ARTERY DOPPLER ASSESSMENT: HISTORY: Renovascular hypertension. End-stage renal disease. FINDINGS: Scanning at the level urinary bladder shows no abnormality but only limited bladder filling. There is a 1.7 cm cyst in the upper pole right kidney and a 0.6 cm cyst is seen in the lower pole left kidney. No other cyst is seen. No hydronephrosis seen. Renal cortical echogenicity pattern is felt to be mildly increased consistent with chronic medical renal disease. Right renal dimensions are 9.6 x 3.9 x 3.8 cm. Left kidney measures 9.1 x 3.8 x 3.6 cm. There is no evidence of renal mass. DOPPLER ASSESSMENT: Peak systolic flow velocity in the abdominal aorta at the level of the main renal arteries is normal measured at 75.2 cm/s. Peak systolic flow velocity in the right main renal artery is 59.8 cm. This is normal. Renal to aortic flow velocity ratio is normal at 0.8 on the right. Peak systolic flow velocity could not be visualized in the left main renal artery. Intrarenal interlobar arterial resistive indices and acceleration times are measured bilaterally and these values are normal. IMPRESSION: There is no Doppler evidence of renal artery stenosis. The main renal artery Doppler flow could not be visualized on the left technically. Increased renal cortical echogenicity consistent with chronic medical renal disease. Small cysts, one in each kidney. Electronically Signed by Juan Carlos Hodgson MD 12/16/2019 09:46 A
== END ==
LOC: M RAD 07:18
PROVIDERS: ATTEND Internal Medicine Nephrology
DX: I15.0 Renovascular hypertension (principal); N18.6 End stage renal disease

== ENCOUNTER 2020-01-13 11:06 | Day surgery (SDC) | payer MEDICARE ==
[~2020-01-13] VITALS: Ht 147.3 cm; Wt 47.1 kg
[~2020-01-13 11:06] MED LIST changes: +LIDOCAINE 2% 100MG/5ML SDV (FOR ANES.) As Ordered ONE; +MIDAZOLAM INJ 2MG/2ML VIAL (J2250 PER 1MG) As Ordered ONE; +ONDANSETRON 4MG/2ML VIAL As Ordered ONE; -PRED5PAK PO; -RENOCAP PO; +ROCURONIUM BROMIDE 50 MG/5 ML VIAL As Ordered ONE; +SUGAMMADEX SODIUM 500 MG/5 ML VIAL (BRIDION) As Ordered ONE; +dexameTHASONE 4 MG/ML 1ML VIAL (J1100 PER 1MG) As Ordered ONE; +fentaNYL 100 MCG/2 ML INJECTION (J3010) As Ordered ONE; +propofoL 200 MG/20 ML VIAL As Ordered ONE
[2020-01-13] MEDS ORDERED: ceFAZolin 2 GM/D5W 50 ML IV BAG (J0690 PER 500MG) As Ordered ONE (11:55)
[2020-01-13] MEDS ORDERED: ISOVUE-300 61% 50ML VIAL As Ordered ONE (13:12)
[2020-01-13] MEDS ORDERED: LIDOCAINE 1% SDV 30ML VIAL As Ordered ONE (13:12)
[2020-01-13] MEDS ORDERED: HEPARIN SOD (PORCINE) 5000UNITS/ML 1ML VIAL/SYRINGE As Ordered ONE ×2 (13:13→13:17)
[2020-01-13] MEDS ORDERED: BUPIVACAINE/EPIN 0.5% 30 ML VIAL As Ordered ONE (13:13)
[2020-01-13] MEDS ORDERED: fentaNYL 100 MCG/2 ML INJECTION (J3010) As Ordered ONE (14:12)
[2020-01-13] MEDS ORDERED: hydrALAZINE 20MG/ML 1ML VIAL (J0360 PER 20MG) As Ordered ONE (14:24)
[2020-01-13] MEDS ORDERED: ROCURONIUM BROMIDE 50 MG/5 ML VIAL As Ordered ONE (14:36)
[2020-01-13] MEDS ORDERED: SUGAMMADEX SODIUM 500 MG/5 ML VIAL (BRIDION) As Ordered ONE (15:33)
--- NOTE | 2020-01-13 16:13 | ROOPDOC ---
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 The patient has a lot of challenges with AV access. This has made her leery of attempting a new AV access. We have been trying to encourage her to pursue a right brachial axillary graft for quite some time, that that the patient is apprehensive and has not wanted to proceed due to fear that the graft will feel similarly to her other AV access attempts. We are sensitive to her feelings and understands that this is a very frustrating situation for her. She will return to clinic recently to disc uss again the option for a right brachial axillary graft. In clinic, I looked at her brachial artery and her axillary vein under ultrasound and showed them both to the patient and her . I explained to them that based on how they look on imaging, I think she will have a suitable brachial axillary graft. However, I cannot promise her that it will be successful. She understands this but after discussing the risks benefits and alternatives, she would like to proceed. Informed consent was obtained. REPORT OF OPERATION: The patient was brought to the operating room in stable condition. General anesthesia and antibiotics were administered without, occasion. Her right upper extremity and axilla were prepped and draped in a sterile fashion. Ioban was placed over the skin. A timeout was performed. An incision was made just proximal to the antecubital crease over the brachial artery through a well-healed previous incision. This was carried down to subcutaneous tissue with Bovie cautery. The brachial artery was identified and skeletonized proximally and distally within the incision, preserving flow through the brachial veins. Vesseloops were placed proximally and distally on the artery. We then turned our attention to the axilla. Local anesthesia was administered to the skin and subcutaneous tissue over the axillary artery pulse and an incision was made and carried down through the subcutaneous tissue and fascia down to the axillary vein. The vein was skeletonized proximally and distally within the incision. Vesseloops were placed around the distal aspect of the vein and a large branch. Proximally, the vein was circumferentially cleared for a bulldog clamp placement. We then prepared a 7 mm diameter Artegraft and 1 end of the vein was beveled to 5 mm opening with 6-0 Prolene suture. The vein was marked to maintain orientation. A tunneler was used to tunnel the vein from the arterial incision to the axillary incision over the biceps. The beveled end was at the arterial incision. The Vesseloops were secured and a 5 mm arteriotomy was made in the graft was anastomosed to the artery and an end-to-side fashion with 5-0 Prolene hemostatic suture. Before the final sutures were placed, a clamp was placed on the graft and the inflow and outflow artery were flushed and the anastomosis was irrigated with heparinized saline. We then placed our final sutures and restored arterial flow through the brachial artery. Good hemostasis was noted. The venous end of the graft was then cut with a long bevel for a long venous anastomosis, tension-free. A bulldog clamp was placed proximally on the vein after securing the distal Vesseloops. A long arteriotomy was made and the graft was anastomosed to the vein and an end-to-side fashion with hemostatic 5-0 Prolene suture. Before the final sutures are placed, we flushed the inflow and outflow at the vein, and removed the clinic from the graft and flushed graft. We replaced the clamp on the graft irrigated with heparinized saline and placed our final sutures. We then restored flow through the graft and the distal veins, and lastly restored flow through the proximal vein. Good hemostasis was noted. There was a good thrill in the graft. Doppler confirmed good flow in the graft, good flow in the vein distal to the graft, and good flow in the brachial artery distal to the arterial anastomosis. There was also a biphasic signal over the palmar arch and the hand was warm and pink and well perfused with less than 1 second capillary refill at each digit. We then irrigated both incisions with arm saline. Local anesthesia was administered to the skin and subcutaneous tissue in both incisions prior to closure. The arterial incision was closed in 2 layers with 2-0 Vicryl suture, and then the skin was approximated with a few interrupted deep dermal 4-0 Vicryl sutures. The skin itself was closed with running 4-0 subcuticular Monocryl suture. The axillary incision was closed with 3 layers of 2-0 Vicryl suture for fascia and the dermal layer was closed with interrupted 4-0 Vicryl sutures. The skin was closed with a running subcuticular Monocryl 4-0 Vicryl suture. Both incisions were cleaned and dried. Mastisol was placed over the incisions and Steri-Strips were placed the length of the incisions. 2 x 2's and Tegaderms were placed his final dressings. Flow was again checked in the graft and the hand and both were well perfused. The patient was then allowed to awaken from anesthesia and was taken to recovery in stable condition. She tolerated the surgery and anesthesia well. ESTIMATED BLOOD LOSS: Approximately 25 mL. COMPLICATIONS: None. PLAN: We will see patient back in 1 week to check AV graft flow and incisions. Ok to shower, no tub bath/swimming 3 weeks. Ok to remove tegaderm and gauze, but try to leave steri strips intact for 5-7 days. Activity as tolerated, no lifting >5lbs or strenuous exercise right arm for 1 week. Percocet Rx pain. We appreciate the opportunity to participate in the care of this patient. KHALIDA SPENCER MD Jan 13, 2020 16:13
[2020-01-13] MEDS ORDERED: OXYC1TAB23 PO (16:17)
[2020-01-13] MEDS ORDERED: NS 1,000 ML IV SCH (17:15)
[2020-01-13] MEDS ORDERED: ONDANSETRON 4MG/2ML VIAL IV PRN (17:15)
[2020-01-13] MEDS ORDERED: oxyCODONE 5MG TAB PO PRN (17:15)
[2020-01-13] MEDS ORDERED: fentaNYL 100 MCG/2 ML INJECTION (J3010) IV PRN (17:15)
[2020-01-13 18:50] VITALS: BP 121/60
[2020-01-27] MEDS ORDERED: PRED5PAK PO (14:16)
[2020-01-27] MEDS ORDERED: RENOCAP PO (14:16)
== END 2020-01-13 19:15 | disposition home or self-care (01) ==
LOC: M SDC 11:06
PROVIDERS: ATTEND Surgery Vascular Surgery
DX: N18.6 End stage renal disease (principal); I12.0 Hypertensive chronic kidney disease with stage 5 chronic kidney disease or end stage renal disease; E11.22 Type 2 diabetes mellitus with diabetic chronic kidney disease; I25.2 Old myocardial infarction; D64.9 Anemia, unspecified; E78.5 Hyperlipidemia, unspecified; H40.9 Unspecified glaucoma; M12.9 Arthropathy, unspecified; Z79.4 Long term (current) use of insulin; Z79.82 Long term (current) use of aspirin; Z79.899 Other long term (current) drug therapy; Z95.5 Presence of coronary angioplasty implant and graft; Z99.2 Dependence on renal dialysis
CPT/HCPCS: 36830; C1768; J0360; J1644; J2250; J2405; J3010

== ENCOUNTER → 2020-02-03 | Outpatient (CLI) | payer MEDICARE ==
[~2020-02-03] MED LIST changes: -LIDOCAINE 2% 100MG/5ML SDV (FOR ANES.) As Ordered ONE; -MIDAZOLAM INJ 2MG/2ML VIAL (J2250 PER 1MG) As Ordered ONE; -ONDANSETRON 4MG/2ML VIAL As Ordered ONE; +PRED5PAK PO; +RENOCAP PO; -ROCURONIUM BROMIDE 50 MG/5 ML VIAL As Ordered ONE; -SUGAMMADEX SODIUM 500 MG/5 ML VIAL (BRIDION) As Ordered ONE; -dexameTHASONE 4 MG/ML 1ML VIAL (J1100 PER 1MG) As Ordered ONE; -fentaNYL 100 MCG/2 ML INJECTION (J3010) As Ordered ONE; -propofoL 200 MG/20 ML VIAL As Ordered ONE
== END ==
LOC: M LABSMTC 10:20
PROVIDERS: ATTEND Anesthesiology
DX: Z01.812 Encounter for preprocedural laboratory examination (principal); Z20.828 Contact with and (suspected) exposure to other viral communicable diseases
CPT/HCPCS: C9803; U0003

== ENCOUNTER 2020-02-08 12:45 | Day surgery (SDC) | payer MEDICARE ==
[~2020-02-08] VITALS: Ht 147.3 cm; Wt 47.6 kg
[~2020-02-08 12:45] MED LIST changes: +D5W/0.2% SODIUM CHLORIDE 1,000 ML IV ONE; +ceFAZolin SOD 2 GM in IV 1 EA IV ONE
[2020-02-08] MEDS ORDERED: CARVedilol 3.125 MG TAB As Ordered ONE (13:52)
[2020-02-08] MEDS ORDERED: CARVedilol 3.125 MG TAB PO ONE (14:00)
[2020-02-08] MEDS ORDERED: HEPARIN SOD (PORCINE) 5000UNITS/ML 1ML VIAL/SYRINGE As Ordered ONE (14:10)
[2020-02-08] MEDS ORDERED: LIDOCAINE 1% SDV 30ML VIAL As Ordered ONE (14:10)
[2020-02-08] MEDS ORDERED: BUPIVACAINE/EPIN 0.5% 30 ML VIAL As Ordered ONE ×2 (14:10→14:15)
[2020-02-08] MEDS ORDERED: fentaNYL 100 MCG/2 ML INJECTION (J3010) As Ordered ONE ×2 (14:15→14:48)
[2020-02-08] MEDS ORDERED: MIDAZOLAM INJ 2MG/2ML VIAL (J2250 PER 1MG) As Ordered ONE ×2 (14:15→14:48)
[2020-02-08] MEDS ORDERED: propofoL 200 MG/20 ML VIAL As Ordered ONE (14:17)
[2020-02-08] MEDS ORDERED: LIDOCAINE 2% 100MG/5ML SDV (FOR ANES.) As Ordered ONE (14:18)
[2020-02-08] MEDS ORDERED: PHENYLephrine HCL 500 MCG/5 ML (100MCG/ML) SYRINGE (J2370) As Ordered ONE (15:30)
[2020-02-08] MEDS ORDERED: ONDANSETRON 4MG/2ML VIAL As Ordered ONE ×2 (15:55→16:55)
[2020-02-08] MEDS ORDERED: oxyCODONE 5MG TAB As Ordered ONE (16:55)
[2020-02-08] MEDS ORDERED: fentaNYL 100 MCG/2 ML INJECTION (J3010) IV PRN (17:15)
[2020-02-08] MEDS ORDERED: MEPERIDINE INJ 25 MG/ML VIAL (J2175) IV PRN (17:15)
[2020-02-08] MEDS ORDERED: oxyCODONE 5MG TAB PO PRN (17:15)
[2020-02-08] MEDS ORDERED: ONDANSETRON 4MG/2ML VIAL IV PRN (17:15)
[2020-02-08] MEDS ORDERED: METOCLOPRAMIDE INJ 10MG/2ML VIAL (J2765 PER 1) IV PRN (17:15)
[2020-02-08] MEDS ORDERED: NS 1,000 ML IV SCH (17:15)
[2020-02-08] MEDS ORDERED: OXYC1TAB23 PO (17:22)
--- NOTE | 2020-02-08 17:32 | ROOPDOC ---
[facility] Report Of Operation Report of Operation DATE OF PROCEDURE: 02/08/20 PREPROCEDURE DIAGNOSES: End-stage renal disease with right brachial axillary Artegraft and mild steal syndrome right hand POSTPROCEDURE DIAGNOSES: Same PROCEDURE: 1. Open exposure right AV graft near AV anastomosis 2. Banding proximal AV graft near AV anastomosis while monitoring hand perfusion SURGEON: Khalida Spencer MD ANESTHESIA: LMA anesthesia and local anesthesia INDICATION FOR PROCEDURE: This is a very pleasant 69-year-old patient with end- stage renal disease currently on dialysis who has a right brachial axillary AV graft that has an excellent thrill and is well-healed, but the patient has had mild steal syndrome of the right hand. She says that her hand hurts and cramps with any activity, and frequently feels cold, especially with dialysis. This is lifestyle limiting for her. She does not have any visual signs of ischemia, and her hand is warm and pink, no tissue loss or gangrene, however her symptoms are very concerning for steal syndrome and I believe she may benefit from banding her AV graft to provide a little bit of additional arterial flow to the hand. Risks benefits and alternatives were explained and she is agreeable to proceed. Informed consent was obtained. REPORT OF OPERATION: The patient was brought to the OR in stable condition and placed supine on the order table. LMA anesthesia and antibiotics were administered without complication. Her right upper extremity was prepped and draped in sterile fashion, and Ioban was placed over the skin. A timeout was performed. Local anesthesia was administered to the skin and subcutaneous tissue over the previous brachial incision near the AV anastomosis. This was carried down to the subcutaneous tissue carefully with Bovie cautery and sharp dissection. The graft was identified at the AV anastomosis and carefully d issected circumferentially. The suture was placed around the graft near the AV anastomosis. We carefully secured the suture and since to slowly while listening to flow within the graft and then listing to flow at the radial and ulnar arteries at the wrist. Following banding, there was still adequate flow for a palpable thrill in the graft, and also a marked improvement in Doppler signal at the radial and ulnar artery at the wrist. This was encouraging. Her hand was still warm and pink. Even with complete compression of the graft, the patient did not have a palpable radial or ulnar pulses, and I believe she has some distal arterial disease at baseline, likely making her more symptomatic than she would be if her arterial system distally was normal. However, after banding, there was no change in the signal at the radial or ulnar arteries with complete compression of the graft or releasing the compression. I believe the banding will help. We then irrigated with saline and the deep tissues were approximated with 2 layers of running 2-0 Vicryl suture, the deep dermal layer was approximated with interrupted 4-0 Vicryl suture, and the skin was closed with a running 4-0 subcuticular Monocryl suture. Mastisol and Steri-Strips were placed length of the incision and a 2 x 2 and Tegaderm was placed as a final dressing. The patient was last awakened from anesthesia and taken to recovery in stable co ndition. ESTIMATED BLOOD LOSS: Approximately 5 mL. COMPLICATIONS: None. PLAN: We will see the patient back in clinic in a week and see if this procedure has made a noticeable difference for her with perfusion in her right hand. Hopefully, this will provide satisfactory relief so the patient is not so troubled by a cold hand, pain in the hand, and diminished motor function. It will be okay for her to shower after 24 hours, okay to remove the Tegaderm and gauze after 24 hours, but that Steri-Strips should remain intact for 5 days. It is okay for her to resume her home medications including Plavix. We appreciate the opportunity to participate in the care of this patient. KHALIDA SPENCER MD Feb 08, 2020 17:32
[2020-02-08 18:25] VITALS: BP 187/77
== END 2020-02-08 18:25 | disposition home or self-care (01) ==
LOC: M SDC 12:45
PROVIDERS: ATTEND Surgery Vascular Surgery
DX: T82.590A Other mechanical complication of surgically created arteriovenous fistula, initial encounter (principal); N18.6 End stage renal disease; E11.319 Type 2 diabetes mellitus with unspecified diabetic retinopathy without macular edema; E11.22 Type 2 diabetes mellitus with diabetic chronic kidney disease; E55.9 Vitamin D deficiency, unspecified; E78.00 Pure hypercholesterolemia, unspecified; H40.9 Unspecified glaucoma; I13.2 Hypertensive heart and chronic kidney disease with heart failure and with stage 5 chronic kidney disease, or end stage renal disease; I25.10 Atherosclerotic heart disease of native coronary artery without angina pectoris; I25.2 Old myocardial infarction; I50.42 Chronic combined systolic (congestive) and diastolic (congestive) heart failure; M06.9 Rheumatoid arthritis, unspecified; M81.0 Age-related osteoporosis without current pathological fracture; X58.XXXA Exposure to other specified factors, initial encounter; Z79.4 Long term (current) use of insulin; Z79.82 Long term (current) use of aspirin; Z79.899 Other long term (current) drug therapy; Z95.5 Presence of coronary angioplasty implant and graft; Z99.2 Dependence on renal dialysis
CPT/HCPCS: 36415; 37607; 84132; J0690; J1644; J2370; J2405

== ENCOUNTER 2020-02-10 18:21 | Emergency (ER) | payer MEDICARE ==
[~2020-02-10] VITALS: Ht 147.3 cm; Wt 47.7 kg
[~2020-02-10 18:21] MED LIST changes: -D5W/0.2% SODIUM CHLORIDE 1,000 ML IV ONE; -ceFAZolin SOD 2 GM in IV 1 EA IV ONE
[2020-02-10 19:12] LABS: BASO # 0.1 10^3/uL (0.0-0.2); BASO % 0.7 % (0.0-1.0); EOS # 0.5 10^3/uL (0.0-0.5); EOS % 5.6 % (0.0-3.0); HEMATOCRIT 34.2 % (36.0-47.0); HEMOGLOBIN 10.9 g/dl (12.0-15.5); LYMPH # 2.4 10^3/uL (1.5-5.0); LYMPH % 29.2 % (24.0-44.0); MEAN CORPUSCULAR HEMOGLOBIN 28.9 pg (27.0-33.0); MEAN CORPUSCULAR HGB CONC 31.9 g/dl (32.0-36.5); MEAN CORPUSCULAR VOLUME 90.7 fl (80.0-96.0); MONO # 0.7 10^3/uL (0.0-0.8); MONO % 8.3 % (0.0-5.0); NEUTROPHILS # 4.5 10^3/uL (1.5-8.5); NEUTROPHILS % 55.6 % (36.0-66.0); PLATELET COUNT, AUTOMATED 162 10^3/uL (150-450); RED BLOOD COUNT 3.77 10^6/uL (4.00-5.40); WHITE BLOOD COUNT 8.2 10^3/uL (4.0-10.0)
[2020-02-10] MEDS ORDERED: NITROGLYCERIN 0.4 MG SUBL TABLET As Ordered ONE (19:19)
[2020-02-10] MEDS: NITROGLYCERIN 0.3 MG SUBL TAB SL PRN ×4 (19:25→19:40)
[2020-02-10] MEDS: NITROGLYCERIN 0.4 MG SUBL TABLET SL PRN ×3 (19:25→19:35)
[2020-02-10 19:45] LABS: CALCIUM LEVEL 9.5 MG/DL (8.8-10.2); CREATININE FOR GFR 4.49 MG/DL (0.55-1.30); GLOMERULAR FILTRATION RATE 10.4 (>45); POTASSIUM SERUM 4.3 MEQ/L (3.5-5.1)
[2020-02-10] MEDS ORDERED: CARVedilol 3.125 MG TAB PO ONE (21:15)
[2020-02-10] MEDS ORDERED: **hydrALAZINE** 50 MG TAB PO ONE (21:15)
[2020-02-10 21:17] VITALS: BP 178/90
--- NOTE | 2020-02-10 21:40 | REPVR ---
PROCEDURE INFORMATION: Exam: XR Chest, 1 View Exam date and time: 02/10/2020 7:19 PM Age: 69 years old Clinical indication: Other: Chest pain TECHNIQUE: Imaging protocol: XR of the chest Views: 1 view. COMPARISON: [facility] PORTABLE CHEST X-RAY 03/09/2019 9:46 AM FINDINGS: Tubes, catheters and devices: There is a central line with its tip at the junction of superior vena cava and right atrium. Lungs: There is mild prominence of the vascular markings. Pleural space: There is no evidence of pneumothorax. Heart/Mediastinum: The heart is normal in size. Bones/joints: The patient has had previous removal of the distal 3rd of the right clavicle. IMPRESSION: Mild prominence of the vascular markings. Electronically signed by: Jamar Washington On 02/10/2020 21:40:14 PM
[2020-02-10] MEDS ORDERED: HEPARIN DRIP 25,000 UNITS in IV 1 EA IV SCH (22:32)
[2020-02-10] MEDS ORDERED: HEPARIN SOD (PORCINE) 5000UNITS/ML 1ML VIAL/SYRINGE IV ONE (22:45)
[2020-02-10] MEDS ORDERED: MORPHINE 4 MG/ML 1ML VIAL/SYRINGE (J2270) IV ONE (22:45)
[2020-02-10] MEDS ORDERED: CLOPIDOGREL 300 MG TAB (PLAVIX) PO ONE (22:45)
[2020-02-10] MEDS ORDERED: ASPIRIN 81 MG CHEW TABLET PO ONE (22:45)
[2020-02-10 23:55] VITALS: BP 188/98
--- NOTE | 2020-02-12 11:50 | ECGEPIP ---
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
--- NOTE | 2020-02-12 11:53 | ECGEPIP ---
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
== END 2020-02-10 23:58 | disposition short-term general hospital (02) ==
LOC: M ED 18:21
DX: I20.0 Unstable angina (principal); R00.0 Tachycardia, unspecified; I25.2 Old myocardial infarction; E11.9 Type 2 diabetes mellitus without complications; I10 Essential (primary) hypertension; E78.5 Hyperlipidemia, unspecified; N18.6 End stage renal disease; Z99.2 Dependence on renal dialysis; Z95.5 Presence of coronary angioplasty implant and graft; Z79.82 Long term (current) use of aspirin; Z79.4 Long term (current) use of insulin; Z79.899 Other long term (current) drug therapy
CPT/HCPCS: 71045; 80048; 82550; 84484; 85025; 93005; 93041; 94760; 96374; 99285; J1644; J2270; U0002

== ENCOUNTER → 2020-05-02 | Outpatient (CLI) | payer MEDICARE ==
[~2020-05-02] MED LIST changes: +LIDOCAINE W/EPINEPHRINE 1% 20ML VIAL As Ordered ONE
[2020-05-02 12:55] VITALS: BP 145/62
--- NOTE | 2020-05-02 14:06 | ROOPDOC ---
[facility] Report Of Operation Report of Operation DATE OF PROCEDURE: 05/02/20 PREPROCEDURE DIAGNOSES: End-stage renal disease no longer requiring PermCath for dialysis POSTPROCEDURE DIAGNOSES: Same PROCEDURE: Removal left IJ PermCath SURGEON: Khalida Spencer MD ANESTHESIA: Local anesthesia INDICATION FOR PROCEDURE: This is a very pleasant 69-year-old patient with end- stage renal disease currently dialyzing with an AV graft in her right upper extremity no longer requires PermCath for dialysis. Risks benefits and alternatives to a PermCath removal were explained to the patient she is agreeable to proceed. Informed consent was obtained. REPORT OF OPERATION: The patient's left neck and chest were prepped and draped in a sterile fashion including the PermCath. A timeout was performed. The sutures removed. Local anesthesia was a felt coverer to round the skin and subcutaneous tissue around the catheter. Dissection was used to loosen the cost from subcutaneous tissue. Pressure was held at the jugular access site and catheter was removed. Pressure was held for 10 minutes and sterile dressings were applied. Good hemostasis was noted. The patient was monitored for 30 minutes without a bit elevated postprocedure and no new bleeding or bruising was noted. She was then discharged in stable condition. ESTIMATED BLOOD LOSS: Approximately 2 mL. COMPLICATIONS: NONE. PLAN: It is okay to use the AV graft for dialysis. It is okay to shower tomorrow with the dressing off. Cover with a bandage daily after shower until healed. For the rest of the day today, keep head of bed elevated to minimize risk of bleeding or bruising left neck and chest. We appreciate the opportunity to participate in the care of this patient. KHALIDA SPENCER MD May 02, 2020 14:06
== END ==
LOC: M IRPRO 12:01
PROVIDERS: ATTEND Surgery Vascular Surgery
DX: Z45.2 Encounter for adjustment and management of vascular access device (principal); N18.6 End stage renal disease; I12.0 Hypertensive chronic kidney disease with stage 5 chronic kidney disease or end stage renal disease; E11.22 Type 2 diabetes mellitus with diabetic chronic kidney disease; E78.5 Hyperlipidemia, unspecified; D64.9 Anemia, unspecified; H40.9 Unspecified glaucoma; M12.9 Arthropathy, unspecified; Z79.01 Long term (current) use of anticoagulants; Z79.4 Long term (current) use of insulin; Z79.82 Long term (current) use of aspirin; Z79.899 Other long term (current) drug therapy; Z99.2 Dependence on renal dialysis

== ENCOUNTER → 2020-07-14 | Outpatient (CLI) | payer MEDICARE ==
[~2020-07-14] MED LIST changes: +ISOS1TAB36 PO; -ISOS60TA2 PO; +ISOVUE-300 61% 50ML VIAL As Ordered ONE; +LIDOCAINE 1% MDV 20ML VIAL As Ordered ONE; -LIDOCAINE W/EPINEPHRINE 1% 20ML VIAL As Ordered ONE; +MIDAZOLAM INJ 2MG/2ML VIAL (J2250 PER 1MG) As Ordered ONE; +fentaNYL 100 MCG/2 ML INJECTION (J3010) As Ordered ONE
--- NOTE | 2020-07-14 16:45 | ROOPDOC ---
[facility] Report Of Operation Report of Operation DATE OF PROCEDURE: 07/14/20 PREPROCEDURE DIAGNOSES: End-stage renal disease with increased pulsatility right brachial axillary graft POSTPROCEDURE DIAGNOSES: Same PROCEDURE: 1. Ultrasound-guided access right brachial axillary graft 2. Angioplasty graft axillary vein anastomosis through subclavian vein and thoracic outlet with 7 x 200 and 8 x 200 Stanley balloons 3. Completion venogram SURGEON: Khalida Spencer MD ANESTHESIA: Local anesthesia 3 mL lidocaine. Moderate intravenous conscious sedation was administered by Dr. Spencer. The patient was independent we monitored by a registered nurse assigned of the department of radiology using automated blood pressure, EKG, and pulse oximetry. The details sedation record is permanently stored in the hospital information system. The following is a brief sedation record: Start time 16:08, stop time 16:25, Versed 0.5 mg IV, fentanyl 25 g IV. INDICATION FOR PROCEDURE: This is a very pleasant 69-year-old patient with a right brachial axillary graft has had increased pulsatility in the graft. Risks benefits alternatives to a fistulogram and potential intervention were explained to the patient she is agreeable to proceed. Informed consent was obtained. INTERPRETATION: 1. The graft arterial anastomosis is patent. It is mildly narrowed purposefully with a band due to patient's history of steal syndrome, but good arterial flow into the graft is noted. 2. The graft over the biceps is widely patent, but there is a focal 90% stenosis at the venous anastomosis, good outflow through the axillary vein and subclavian vein until the thoracic outlet where there is a 40% stenosis, and in the central veins are widely patent. 3. After angioplasty with a 7 x 200 balloon across the venous anastomosis and across the thoracic outlet, there was definitely some large improvement in flow but still 30% residual stenosis in both areas. After repeat angioplasty with an 8 x 200 Stanley balloon, there is widely patent flow with less than 20% residual stenosis at the venous anastomosis and the thoracic outlet. Rapid flow back to the heart was noted. There was a marked decrease inflow through collateral veins as the main veins were patent. No extravasation was noted. REPORT OF OPERATION: Patient was brought to the angiographic suite in stable condition. Her right upper extremity was prepped and draped in sterile fashion. A timeout was performed. Local anesthesia was administered to the skin and subcutaneous tissue and ultrasound was used to examine the AV anastomosis. There was noted to be good flow at the arterial anastomosis, some narrowing due to purposeful bandaging for steal syndrome, but overall flow is more than adequate. Ultrasound was used to guide access with a microneedle and a wire was passed through this access. The needle was removed and a 4 Trinid[place] sheath was placed and flushed with saline. A fistulogram and central venogram were performed, please see interpretation above. A Glidewire was advanced into the central system. This took a bit of time that there was difficulty passing through the venous anastomosis, once we were successful with this we had no trouble advancing the wire to the central system. The sheath was exchanged for 6 Trinidadian sheath which was flushed with saline. A 7 x 200 Stanley balloon was advanced across the venous anastomosis and thoracic outlet. I three-minute inflation was performed. Following this there was some improvement, please see interpretation above. We change the balloon for an 8 x 200 Stanley balloon and a second three-minute inflation was performed. Following this, there was a marked improvement in flow, decreased collateral vein flow, no extravasation, and an excellent thrill and the graft. There is no longer any pulsatility. Local anesthesia was ministered around the sheath in a [id number] suture was placed and the sheath was removed. The suture was secured and pressure was held and good hemostasis was noted. Sterile dressings were applied. The patient tolerated the procedure and the sedation well. ESTIMATED BLOOD LOSS: Approximately 5 mL. COMPLICATIONS: None. PLAN: It is okay to use the graft for dialysis. It is okay to resume home diet and medications. We appreciate the opportunity to participate in the care of this patient. KHALIDA SPENCER MD Jul 14, 2020 16:45
[2020-07-14 16:55] VITALS: BP 157/69
== END ==
LOC: M IRPRO 14:27
PROVIDERS: ATTEND Surgery Vascular Surgery
DX: T82.590A Other mechanical complication of surgically created arteriovenous fistula, initial encounter (principal); N18.6 End stage renal disease; X58.XXXA Exposure to other specified factors, initial encounter; Z99.2 Dependence on renal dialysis
CPT/HCPCS: 36902; 99152; C1725; C1769; C1894; J1644; J2250; J3010; Q9967

== ENCOUNTER → 2020-09-08 | Outpatient (CLI) | payer MEDICARE ==
[~2020-09-08] MED LIST changes: +LISI2.5T2; +METO1TAB32; +SEVE800T3
--- NOTE | 2020-09-08 14:23 | ROOPDOC ---
[facility] Report Of Operation Report of Operation DATE OF PROCEDURE: 09/08/20 PREPROCEDURE DIAGNOSES: End stage renal disease with difficult cannulation right brachial axillary AV graft POSTPROCEDURE DIAGNOSES: Same PROCEDURE: 1. Ultrasound-guided access right AV graft 2. Right upper extremity fistulogram and central venogram 3. Angioplasty right axillary vein and subclavian vein was 7 x 20 cutting balloon and 8 x 200 [place] balloon 4. Completion venogram SURGEON: Tess Spencer MD ANESTHESIA: Local anesthesia 2 mL lidocaine. Moderate intravenous conscious sedation was administered by Dr. Spencer. The patient was independently monitored by registered nurse assigned at the Department of radiology using automated blood pressure, EKG, and pulse oximetry. The detailed sedation record is permanently stored in the hospital information system. The following is a brief sedation record: Start time 13:41, start time 14:02, Versed 0.5 mg IV, fentanyl 25 g IV. CONTRAST: 16 mL Isovue-300 INDICATION FOR PROCEDURE: This is a very pleasant 70-year-old patient with end- stage renal disease currently dialyzing with a right brachial axillary AV graft to his had multiple infiltrations and difficulty with cannulation. Risks benefits alternatives to a fistulogram potential intervention were explained to the patient she is agreeable to proceed. Informed consent was obtained. INTERPRETATION: 1. The AV anastomosis is widely patent on ultrasound, please see images 2. The right AV graft is widely patent with good outflow into the axillary vein and a 40% stenosis at the axillary vein a few centimeters from the AV anasto mosis, and then the axillary vein is otherwise widely patent. The subclavian vein is widely patent except for a focal stenosis at the thoracic outlet of 60%. The central veins are widely patent. 3. After angioplasty of the axillary vein and subclavian vein with a 7 x 20 cutting balloon, there was improve flow but still residual stenosis. After repeat angioplasty across both areas with an 8 x 200 [place] balloon, there is widely patent flow with minimal residual stenosis and an excellent thrill and the AV graft. No extravasation noted. REPORT OF OPERATION: The patient was brought to the angiographic suite in stable condition. Her right upper extremity was prepped and draped in a sterile fashion. A timeout was performed. Local anesthesia was administered to the skin and subcutaneous tissue over the AV graft near the AV anastomosis. Ultrasound was used to examine the AV anastomosis and colorful images were saved showing there is widely patent inflow into the graft. We then gained access to the AV graft with a microneedle under ultrasound guidance. A wire was passed through this access through the graft and the needle was removed. A 4 Syriac sheath was placed and flushed with saline. A fistulogram and central venogram were performed, please see interpretation above. We then advanced a Glidewire and exchanged the sheath for some Syriac sheath. We then exchange the wire for a 018 Glidewire advantage. Over the wire was passed to 7 x 20 cutting balloon and this was used to do sequential angioplasties at the focal area of stenosis in axillary vein and the subclavian vein. Following this, there was improve flow but still significant residual stenosis and we replaced the balloon over the wire with an 8 x 200 [place] balloon and angioplasties across the entire area for three-minute inflations. Following this, there is marked improvement in flow with minimal residual stenosis in both areas. There is an excellent thrill in the fistula. No extravasation noted. The balloon was removed and the sheath was flushed with saline. A [id number] pulling suture was placed at the sheath site and the sheath was removed. The suture was secured good hemostasis was noted and sterile dressings were applied. We then utilized ultrasound to rogers the fistula on the skin and a Tegaderm was placed over the almanza to keep him from washing off before the patient returns to dialysis. She was then taken to recovery in stable condition. She tolerated the procedure and the sedation well. ESTIMATED BLOOD LOSS: Approximately 4 mL. COMPLICATIONS: None. PLAN: Okay to resume home diet and medications. Okay to use fistula for dialysis. We appreciate the opportunity to participate in the care of this patient. TESS SPENCER MD Sep 08, 2020 14:23
[2020-09-08 14:40] VITALS: BP 139/64
== END ==
LOC: M IRPRO 12:50
PROVIDERS: ATTEND Surgery Vascular Surgery
DX: T82.590A Other mechanical complication of surgically created arteriovenous fistula, initial encounter (principal); N18.6 End stage renal disease; X58.XXXA Exposure to other specified factors, initial encounter
CPT/HCPCS: 36902; 99152; 99153; C1725; C1729; C1769; C1894; J1644; J2250; J3010; Q9967

== ENCOUNTER → 2021-02-08 | Outpatient (CLI) | payer MEDICARE ==
[~2021-02-08] MED LIST changes: +ERGO500029 PO; -ISOVUE-300 61% 50ML VIAL As Ordered ONE; -KLOR20TA42 PO; -LIDOCAINE 1% MDV 20ML VIAL As Ordered ONE; -LISI2.5T2; +LISI2.5T9; -MIDAZOLAM INJ 2MG/2ML VIAL (J2250 PER 1MG) As Ordered ONE; +POTA-141 PO; -VITA50005 PO; -fentaNYL 100 MCG/2 ML INJECTION (J3010) As Ordered ONE
== END ==
LOC: M LABSMTC 11:26
PROVIDERS: ATTEND Ophthalmology
DX: Z01.812 Encounter for preprocedural laboratory examination (principal); Z20.822 Contact with and (suspected) exposure to COVID-19

== ENCOUNTER → 2021-02-10 | Outpatient (CLI) | payer MEDICARE ==
[2021-02-10 10:41] LABS: HEMATOCRIT 34.2 % (36.0-47.0); HEMOGLOBIN 10.8 g/dl (12.0-15.5); MEAN CORPUSCULAR HEMOGLOBIN 28.1 pg (27.0-33.0); MEAN CORPUSCULAR HGB CONC 31.6 g/dl (32.0-36.5); MEAN CORPUSCULAR VOLUME 89.1 fl (80.0-96.0); PLATELET COUNT, AUTOMATED 149 10^3/uL (150-450); RED BLOOD COUNT 3.84 10^6/uL (4.00-5.40); WHITE BLOOD COUNT 5.9 10^3/uL (4.0-10.0)
[2021-02-10 11:06] LABS: CALCIUM LEVEL 8.5 MG/DL (8.8-10.2); CREATININE FOR GFR 3.39 MG/DL (0.55-1.30); GLOMERULAR FILTRATION RATE 14.3 (>45); POTASSIUM SERUM 3.8 MEQ/L (3.5-5.1)
== END ==
LOC: M LAB 10:05
PROVIDERS: ATTEND Physician Assistant
DX: I25.10 Atherosclerotic heart disease of native coronary artery without angina pectoris (principal)

== ENCOUNTER 2022-01-28 09:54 | Inpatient (IN) | payer MEDICARE ==
[~2022-01-28] VITALS: Ht 149.9 cm; Wt 50.0 kg
[~2022-01-28 09:54] MED LIST changes: +AZOP0.2S OS; -AZOP0.2S OU; -METO1TAB32; +METO1TAB32 PO; +PANTOPRAZOLE 40MG TAB (PROTONIX) PO SCH; +PRED1SUS2 OD; -PRED1SUS2 OS; -SEVE800T3; +SEVE800T3 PO
[2022-01-28] MEDS: NITROGLYCERIN 0.4 MG SUBL TABLET SL PRN ×2 (10:37→10:43)
[2022-01-28 11:06] LABS: BASO # 0.1 10^3/uL (0.0-0.2); BASO % 1.3 % (0.0-1.0); EOS # 0.3 10^3/uL (0.0-0.5); EOS % 5.4 % (0.0-3.0); HEMATOCRIT 34.7 % (36.0-47.0); HEMOGLOBIN 11.1 g/dl (12.0-15.5); LYMPH # 1.4 10^3/uL (1.5-5.0); LYMPH % 25.8 % (24.0-44.0); MEAN CORPUSCULAR HEMOGLOBIN 28.9 pg (27.0-33.0); MEAN CORPUSCULAR VOLUME 90.4 fl (80.0-96.0); MONO # 0.3 10^3/uL (0.0-0.8); MONO % 5.4 % (2.0-8.0); NEUTROPHILS # 3.3 10^3/uL (1.5-8.5); NEUTROPHILS % 61.7 % (36.0-66.0); PLATELET COUNT, AUTOMATED 181 10^3/uL (150-450); RED BLOOD COUNT 3.84 10^6/uL (4.00-5.40); WHITE BLOOD COUNT 5.4 10^3/uL (4.0-10.0)
[2022-01-28] MEDS ORDERED: NITROGLYCERIN 2% OINT 1 GM *U/D* PKT TOP ONE (11:35)
[2022-01-28] MEDS ORDERED: ISOVUE-370 76% 100ML VIAL As Ordered ONE (11:47)
[2022-01-28 12:00] LABS: CK-MB VALUE MASS < 1.0 NG/ML (<3.6); CPK CREATINE PHOSPHOKINASE 92 U/L (26-192); MB/CK RELATIVE INDEX 1.09 (< OR =4)
[2022-01-28 12:01] LABS: ALBUMIN 3.1 GM/DL (3.2-5.2); BILIRUBIN,DIRECT 0.2 MG/DL (0.0-0.2); BILIRUBIN,TOTAL 0.6 MG/DL (0.2-1.0); CREATININE FOR GFR 2.45 MG/DL (0.55-1.30); GLOMERULAR FILTRATION RATE 20.7 (>39); POTASSIUM SERUM 3.7 MEQ/L (3.5-5.1); THYROID STIMULATING HORMONE 0.463 uIU/ML (0.358-3.740)
[2022-01-28] MEDS ORDERED: ONDANSETRON 4MG 2ML VIAL IV ONE (12:20)
[2022-01-28] MEDS ORDERED: MORPHINE 2 MG/ML 1ML VIAL IV PRN (12:20)
[2022-01-28 12:23] LABS: MB/CK RELATIVE INDEX 2.17 (< OR =4)
[2022-01-28] MEDS ORDERED: BRIMONIDINE 0.1% OPHTH SOLN 5 ML OS SCH (14:00)
[2022-01-28] MEDS ORDERED: ACETAMINOPHEN TAB 650MG DOSE (2X325MG) PO PRN (15:05)
[2022-01-28 15:10] LABS: CK-MB VALUE MASS 1.5 NG/ML (<3.6); MB/CK RELATIVE INDEX 3.19 (< OR =4)
[2022-01-28 15:24] LABS: MAGNESIUM LEVEL 2.1 MG/DL (1.8-2.4)
[2022-01-28] MEDS ORDERED: GLUCOSE 4GM CHEW TABLET PO PRN (15:25)
[2022-01-28] MEDS ORDERED: GLUCAGON INJ 1MG VIAL SC PRN (15:25)
[2022-01-28] MEDS ORDERED: DEXTROSE 50% 50 ML SYRINGE IV PRN (15:25)
[2022-01-28] MEDS ORDERED: FUROSEMIDE 100MG/10ML VIAL (J1940) IV ONE (15:25)
[2022-01-28] MEDS ORDERED: AZITHROMYCIN INJ 500 MG, VIAL MATE ADAPTER 1 EACH in NS 250 ML IV SCH (16:00)
[2022-01-28] MEDS ORDERED: TIMO0.5S29 OS (16:24)
[2022-01-28] MEDS ORDERED: REFR0.5D8 OU (16:24)
[2022-01-28] MEDS ORDERED: BRIM0.2S13 OS (16:24)
[2022-01-28] MEDS ORDERED: HYDR-3911 PO (16:24)
[2022-01-28] MEDS ORDERED: LISI20TA33 PO (16:24)
[2022-01-28] MEDS ORDERED: OFLO3OPSO OD (16:24)
[2022-01-28] MEDS ORDERED: EZET10TA21 PO (16:24)
[2022-01-28] MEDS ORDERED: ISOS1TAB36 PO (16:28)
[2022-01-28] MEDS ORDERED: LIDO1CRE42 TOP (16:28)
[2022-01-28] MEDS ORDERED: HOME MED LIST COMPLETE! XX SCH (16:30)
[2022-01-28] MEDS ORDERED: NITROGLYCERIN 0.4 MG SUBL TABLET SL PRN (16:50)
[2022-01-28 16:56] LABS: CK-MB VALUE MASS 2.3 NG/ML (<3.6)
[2022-01-28] MEDS ORDERED: ENTER DRUG NAME HERE (PATIENT'S OWN MED) OU PRN (17:00)
[2022-01-28] MEDS ORDERED: ENTER DRUG NAME HERE (PATIENT'S OWN MED) OS SCH (17:00)
[2022-01-28] MEDS ORDERED: cefTRIAXone SOD 1 GM in D5W MINI-BAG PLUS 50 ML IV SCH (17:00)
[2022-01-28] MEDS ORDERED: INSULIN LISPRO (NovoLOG) PER UNIT SC SCH ×2 (17:30→21:00)
[2022-01-28] MEDS ORDERED: POLYVINYL ALCOHOL OPHTH SOLN 15 ML(LIQUITEARS) OU PRN (17:50)
[2022-01-28] MEDS ORDERED: SUCROFERRIC OXYHYDROXIDE 500MG CHEW TAB (VELPHORO) PO SCH (18:00)
[2022-01-28] MEDS ORDERED: HEPARIN SOD (PORCINE) 5000UNITS/ML 1ML VIAL/SYRINGE IV STA ×2 (18:38→19:45)
[2022-01-28] MEDS ORDERED: METOPROLOL TART 25 MG TABLET PO ONE (19:20)
[2022-01-28] MEDS ORDERED: HEPARIN DRIP 25,000 UNITS in IV 1 EA IV SCH (19:35)
[2022-01-28 20:45] VITALS: BP 105/48
[2022-01-28] MEDS ORDERED: BRINZOLAMIDE 1% OPHTH SUSP (AZOPT) 10ML OS SCH (21:00)
[2022-01-28] MEDS ORDERED: TIMOLOL MALEATE 0.5% OPHTH SOLN 5 ML OS SCH (21:00)
[2022-01-28] MEDS ORDERED: HEPARIN SOD (PORCINE) 5000UNITS/ML 1ML VIAL/SYRINGE SC SCH (21:00)
[2022-01-28] MEDS ORDERED: **hydrALAZINE** 50 MG TAB PO SCH (21:00)
[2022-01-28] MEDS ORDERED: (RENVELA) SEVELAMER **CARBONate** 800 MG TAB PO SCH (21:00)
[2022-01-28] MEDS ORDERED: LEVEMIR (INSULIN DETEMIR) 1 UNITS/0.01ML SC SCH (21:00)
[2022-01-28] MEDS ORDERED: BRIMONIDINE 0.1% OPHTH SOLN 5 ML OU SCH (21:00)
[2022-01-28] MEDS ORDERED: ENTER DRUG NAME HERE (PATIENT'S OWN MED) OU SCH (21:00)
[2022-01-28] MEDS ORDERED: ISOSORBIDE MON. (IMDUR) 60MG XR TAB PO SCH (21:00)
[2022-01-29] MEDS ORDERED: TIMOLOL MALEATE 0.5% OPHTH SOLN 5 ML OU SCH (09:00)
[2022-01-29] MEDS ORDERED: NEPHRO-VIT TAB (NEPHROCAPS) PO SCH (09:00)
[2022-01-29] MEDS ORDERED: EZETIMIBE 10MG TABLET (ZETIA) PO SCH (09:00)
[2022-01-29] MEDS ORDERED: CLOPIDOGREL 75 MG TAB PO SCH (09:00)
[2022-01-29] MEDS ORDERED: FOLIC ACID 1MG TAB PO SCH (09:00)
[2022-01-29] MEDS ORDERED: ASPIRIN 81MG ENTERIC TABLET PO SCH (09:00)
[2022-01-29] MEDS ORDERED: METOPROLOL SUCC *XL* 25MG TAB (TopROL *XL*) PO SCH (09:00)
[2022-01-29] MEDS ORDERED: ATORVASTATIN 20 MG TAB PO SCH ×2 (09:00)
[2022-02-01] MEDS ORDERED: OFLOXACIN 0.3 % (OCUFLOX) OPTH SOL 5ML OD SCH (09:00)
[2022-02-04] MEDS ORDERED: prednisoLONE ACET 1% OPHTH SUSP 5ML OD SCH (09:00)
== END 2022-01-28 21:08 | disposition short-term general hospital (02) | DRG 304 ==
LOC: M ED 09:54 → M ED INP 15:32 → CANRESERV 17:22 → ENRESERV 17:22
PROVIDERS: ADMIT Family Medicine; ATTEND Family Medicine
DX: I16.1 Hypertensive emergency (principal); N18.6 End stage renal disease; I50.32 Chronic diastolic (congestive) heart failure; J90 Pleural effusion, not elsewhere classified; I24.8 Other forms of acute ischemic heart disease; I13.2 Hypertensive heart and chronic kidney disease with heart failure and with stage 5 chronic kidney disease, or end stage renal disease; I25.10 Atherosclerotic heart disease of native coronary artery without angina pectoris; I25.2 Old myocardial infarction; Z95.5 Presence of coronary angioplasty implant and graft; E78.5 Hyperlipidemia, unspecified; E11.22 Type 2 diabetes mellitus with diabetic chronic kidney disease; H40.9 Unspecified glaucoma; Z99.2 Dependence on renal dialysis; Z90.79 Acquired absence of other genital organ(s); R74.01 Elevation of levels of liver transaminase levels; Z79.82 Long term (current) use of aspirin; Z79.4 Long term (current) use of insulin; Z79.899 Other long term (current) drug therapy; R07.89 Other chest pain

== ENCOUNTER 2023-03-03 09:38 | Emergency (ER) | payer MEDICARE ==
[~2023-03-03] VITALS: Ht 147.3 cm; Wt 46.4 kg
[~2023-03-03 09:38] MED LIST changes: +BRIM0.2S13 OS; +CLOP75TA99 PO; +EZET10TA21 PO; +LIDO30CR18 TOP; +LISI20TA33 PO; +OFLO5DRO OD; -PANTOPRAZOLE 40MG TAB (PROTONIX) PO SCH; -PLAV1TAB2 PO; +REFR0.5D8 OU; +TIMO0.5S20 OS; +TIMO0.5S20 OU; -TIMO0.5S29 OU
[2023-03-03 09:39] VITALS: BP 141/64; TEMP 98; O2SAT 16
== END 2023-03-03 12:22 | disposition home or self-care (01) ==
LOC: M ED 09:38
DX: T82.838A Hemorrhage due to vascular prosthetic devices, implants and grafts, initial encounter (principal); E11.9 Type 2 diabetes mellitus without complications; I10 Essential (primary) hypertension; E78.5 Hyperlipidemia, unspecified; N18.9 Chronic kidney disease, unspecified; Z79.82 Long term (current) use of aspirin; Z79.811 Long term (current) use of aromatase inhibitors; Z79.02 Long term (current) use of antithrombotics/antiplatelets; Z79.899 Other long term (current) drug therapy

== ENCOUNTER → 2023-07-24 | Outpatient (CLI) | payer MEDICARE ==
[~2023-07-24] MED LIST changes: -HYDR-3910 PO; -HYDR-3911 PO; -HYDR25TA PO; +HYDR25TA87 PO; +HYDR25TA88 PO; -HYDR50TA PO; +HYDR50TA46 PO; +HYDR50TA47 PO
[2023-07-24 11:00] LABS: BASO # 0.1 10^3/uL (0.0-0.2); BASO % 1.2 % (0.0-1.0); EOS # 0.2 10^3/uL (0.0-0.5); EOS % 3.3 % (0.0-3.0); HEMATOCRIT 41.8 % (36.0-47.0); HEMOGLOBIN 13.3 g/dl (12.0-15.5); LYMPH # 1.7 10^3/uL (1.5-5.0); LYMPH % 26.4 % (24.0-44.0); MEAN CORPUSCULAR HGB CONC 31.8 g/dl (32.0-36.5); MEAN CORPUSCULAR VOLUME 91.3 fl (80.0-96.0); MONO # 0.5 10^3/uL (0.0-0.8); MONO % 8.4 % (2.0-8.0); NEUTROPHILS # 3.9 10^3/uL (1.5-8.5); NEUTROPHILS % 60.5 % (36.0-66.0); PLATELET COUNT, AUTOMATED 131 10^3/uL (150-450); RED BLOOD COUNT 4.58 10^6/uL (4.00-5.40); WHITE BLOOD COUNT 6.4 10^3/uL (4.0-10.0)
[2023-07-24 11:28] LABS: ALBUMIN 3.3 G/DL (3.2-5.2); BILIRUBIN,TOTAL 0.3 MG/DL (0.3-1.2); CALCIUM LEVEL 8.5 MG/DL (8.3-10.6); CHOLESTEROL RISK RATIO 1.93 (<5); CREATININE FOR GFR 4.49 MG/DL (0.55-1.30); GLOMERULAR FILTRATION RATE 10.3 (>39); HDL CHOLESTEROL 49.1 MG/DL (>40); HEMOGLOBIN A1c 5.3 % (4.0-6.0); LDL CHOLESTEROL 30.3 MG/DL (<100); NON-HDL-C 45.9 MG/DL; POTASSIUM SERUM 4.7 MMOL/L (3.5-5.1); TOTAL PROTEIN 6.8 G/DL (5.7-8.2)
== END ==
LOC: M PLALAB 07:16
PROVIDERS: ATTEND Family Medicine
DX: E78.5 Hyperlipidemia, unspecified (principal); D64.9 Anemia, unspecified; E11.9 Type 2 diabetes mellitus without complications

== ENCOUNTER → 2024-02-03 | Outpatient (CLI) | payer MEDICARE | LOC: M WHC 06:43 | PROVIDERS: ATTEND Family Medicine | DX: Z12.31 Encounter for screening mammogram for malignant neoplasm of breast (principal); Z53.9 Procedure and treatment not carried out, unspecified reason ==

== ENCOUNTER → 2024-07-06 | Outpatient (CLI) | payer MEDICARE ==
[2024-07-06 11:22] LABS: BASO # 0.1 10^3/uL (0.0-0.2); BASO % 1.5 % (0.0-1.0); EOS # 0.2 10^3/uL (0.0-0.5); EOS % 3.3 % (0.0-3.0); HEMATOCRIT 36.4 % (36.0-47.0); HEMOGLOBIN 11.3 g/dl (12.0-15.5); LYMPH # 1.3 10^3/uL (1.5-5.0); LYMPH % 26.1 % (24.0-44.0); MEAN CORPUSCULAR HEMOGLOBIN 29.1 pg (27.0-33.0); MEAN CORPUSCULAR VOLUME 93.8 fl (80.0-96.0); MONO # 0.5 10^3/uL (0.0-0.8); MONO % 10.4 % (2.0-8.0); NEUTROPHILS # 2.8 10^3/uL (1.5-8.5); NEUTROPHILS % 58.5 % (36.0-66.0); PLATELET COUNT, AUTOMATED 115 10^3/uL (150-450); RED BLOOD COUNT 3.88 10^6/uL (4.00-5.40); WHITE BLOOD COUNT 4.8 10^3/uL (4.0-10.0)
[2024-07-06 11:30] LABS: ALBUMIN 3.3 G/DL (3.2-5.2); BILIRUBIN,TOTAL 0.3 MG/DL (0.3-1.2); CREATININE FOR GFR 4.51 MG/DL (0.55-1.30); GLOMERULAR FILTRATION RATE 10.2 (>39); POTASSIUM SERUM 4.2 MMOL/L (3.5-5.1)
[2024-07-06 11:34] LABS: THYROID STIMULATING HORMONE 0.447 uIU/ML (0.55-4.78)
[2024-07-06 11:46] LABS: HEMOGLOBIN A1c 5.8 % (4.0-6.0)
== END ==
LOC: M PLALAB 07:53
PROVIDERS: ATTEND Family Medicine
DX: I25.10 Atherosclerotic heart disease of native coronary artery without angina pectoris (principal); E07.9 Disorder of thyroid, unspecified

== ENCOUNTER → 2025-01-06 | Outpatient (CLI) | payer MEDICARE ==
[~2025-01-06] MED LIST changes: +ISOS-18 PO; -ISOS30TAB PO
[2025-01-06 11:29] LABS: BASO # 0.1 10^3/uL (0.0-0.2); BASO % 1.5 % (0.0-1.0); EOS # 0.2 10^3/uL (0.0-0.5); EOS % 4.8 % (0.0-3.0); LYMPH # 1.2 10^3/uL (1.5-5.0); LYMPH % 26.6 % (24.0-44.0); MONO # 0.5 10^3/uL (0.0-0.8); MONO % 10.6 % (2.0-8.0); NEUTROPHILS # 2.6 10^3/uL (1.5-8.5); NEUTROPHILS % 56.3 % (36.0-66.0); PLATELET COUNT, AUTOMATED 103 10^3/uL (150-450)
[2025-01-06 11:47] LABS: ESTIMATED AVERAGE GLUCOSE 103.0 MG/DL (60-110)
[2025-01-06 12:00] LABS: ALT/SGPT 18.0 U/L (7.0-40); AST/SGOT 29.0 U/L (<34); CALCIUM LEVEL 8.9 MG/DL (8.3-10.6); CARBON DIOXIDE LEVEL 29.0 MMOL/L (20-31); CHLORIDE LEVEL 104.0 MMOL/L (98-107); CHOLESTEROL LEVEL 98.0 MG/DL (<200); CHOLESTEROL RISK RATIO 1.92 (<5); CREATININE FOR GFR 4.41 MG/DL (0.55-1.30); GLOMERULAR FILTRATION RATE 10.0 (>39); LDL CHOLESTEROL 30.7 MG/DL (<100); NON-HDL-C 47.1 MG/DL; POTASSIUM SERUM 4.0 MMOL/L (3.5-5.1); SODIUM LEVEL 144.0 MMOL/L (136-145); TRIGLYCERIDES LEVEL 82.0 MG/DL (<150)
== END ==
LOC: M PLALAB 07:39
PROVIDERS: ATTEND Family Medicine
DX: I25.10 Atherosclerotic heart disease of native coronary artery without angina pectoris (principal); D63.1 Anemia in chronic kidney disease; E11.21 Type 2 diabetes mellitus with diabetic nephropathy; I13.2 Hypertensive heart and chronic kidney disease with heart failure and with stage 5 chronic kidney disease, or end stage renal disease; Z79.4 Long term (current) use of insulin; N18.5 Chronic kidney disease, stage 5; E11.22 Type 2 diabetes mellitus with diabetic chronic kidney disease

== ENCOUNTER → 2025-02-01 | Outpatient (CLI) | payer MEDICARE ==
[~2025-02-01] MED LIST changes: +AMLO2.5T3 PO; -BRIM0.2S13 OU; +DORZ1SOL4 OS; +FLUO1OPD OD; +HEPARIN 1,000 UNITS/ML 10 ML VIAL (FOR RADIOLOGY & DIALYSIS ONLY) IV PRN; +NS (Normal Saline) 0.9% 1,000 ML IV SCH; +ceFAZolin SODIUM 2 GM in DEXTROSE 5% (D5W) ADV/MINI-BAG 50 ML IV ONE
[2025-02-01 10:00] VITALS: TEMP 98.9
[2025-02-01 11:33] LABS: BASO # 0.0 10^3/uL (0.0-0.2); BASO % 0.1 % (0.0-1.0); EOS # 0.0 10^3/uL (0.0-0.5); EOS % 0.0 % (0.0-3.0); LYMPH # 0.6 10^3/uL (1.5-5.0); LYMPH % 2.9 % (24.0-44.0); MONO # 0.8 10^3/uL (0.0-0.8); MONO % 3.9 % (2.0-8.0); NEUTROPHILS # 19.0 10^3/uL (1.5-8.5); NEUTROPHILS % 92.3 % (36.0-66.0)
[2025-02-01 11:38] LABS: PLATELET COUNT, AUTOMATED 85 10^3/uL (150-450)
[2025-02-01] MEDS: VANCOMYCIN HCL 1,000 MG, VIAL MATE ADAPTER 1 EACH in NS 250 ML IV ONE (12:11)
[2025-02-01] MEDS: MIDAZOLAM INJ 2 MG/2 ML VIAL IV PRN (12:35)
[2025-02-01] MEDS: LIDOCAINE 1% MDV 20 ML VIAL SC SCH (12:49)
[2025-02-01 13:04] LABS: CALCIUM LEVEL 9.1 MG/DL (8.3-10.6); CARBON DIOXIDE LEVEL 24.0 MMOL/L (20-31); CHLORIDE LEVEL 103.0 MMOL/L (98-107); CREATININE FOR GFR 5.32 MG/DL (0.55-1.30); GLOMERULAR FILTRATION RATE 8.0 (>39); POTASSIUM SERUM 4.1 MMOL/L (3.5-5.1); SODIUM LEVEL 141.0 MMOL/L (136-145)
[2025-02-01 13:30] VITALS: BP 172/80; O2SAT 100
== END ==
LOC: M IRPRO 09:35
PROVIDERS: ATTEND Internal Medicine Nephrology
DX: N18.6 End stage renal disease (principal)
CPT/HCPCS: 36415; 36589; 80048; 85025; 85049; 85055; 87040; 87154; 99152; J2250; J3010; J3373

== ENCOUNTER 2025-02-02 16:03 | Inpatient (IN) | payer MEDICARE ==
[~2025-02-02] VITALS: Ht 147.3 cm; Wt 49.3 kg
[~2025-02-02 16:03] MED LIST changes: -AMLO2.5T3 PO; -DORZ1SOL4 OS; -EZET10TA21 PO; +EZET10TA57 PO; -FLUO1OPD OD; -HEPARIN 1,000 UNITS/ML 10 ML VIAL (FOR RADIOLOGY & DIALYSIS ONLY) IV PRN; -NS (Normal Saline) 0.9% 1,000 ML IV SCH; -ceFAZolin SODIUM 2 GM in DEXTROSE 5% (D5W) ADV/MINI-BAG 50 ML IV ONE
[2025-02-02] MEDS ORDERED: DEXTROSE 50% 50 ML SYRINGE IV PRN (16:20)
[2025-02-02] MEDS ORDERED: GLUCAGON INJ 1 MG VIAL SC PRN (16:20)
[2025-02-02] MEDS ORDERED: GLUCOSE 4 GM CHEW PO PRN (16:20)
[2025-02-02] MEDS: INSULIN LISPRO (NovoLOG) PER UNIT SC SCH ×2 (17:30→20:22)
[2025-02-02] MEDS ORDERED: FLUO1OPD OD (18:04)
[2025-02-02] MEDS ORDERED: HYDR50TA46 PO (18:04)
[2025-02-02] MEDS ORDERED: DORZ1SOL4 OS (18:04)
[2025-02-02] MEDS ORDERED: AMLO2.5T3 PO (18:04)
[2025-02-02] MEDS ORDERED: HOME MED LIST COMPLETE! XX SCH (18:05)
[2025-02-02 19:14] LABS: PLATELET COUNT, AUTOMATED 85 10^3/uL (150-450)
[2025-02-02 19:46] LABS: ALT/SGPT 25.0 U/L (7.0-40); AST/SGOT 84.0 U/L (<34); C REACTIVE PROTEIN QUANTITATIV 16.39 MG/DL (<1.0); CALCIUM LEVEL 9.1 MG/DL (8.3-10.6); CARBON DIOXIDE LEVEL 26.0 MMOL/L (20-31); CHLORIDE LEVEL 100.0 MMOL/L (98-107); CREATININE FOR GFR 4.67 MG/DL (0.55-1.30); GLOMERULAR FILTRATION RATE 9.4 (>39); POTASSIUM SERUM 5.3 MMOL/L (3.5-5.1); SODIUM LEVEL 138.0 MMOL/L (136-145)
[2025-02-02 19:51] VITALS: BP 139/61; TEMP 97.5; O2SAT 97
[2025-02-02] MEDS: **hydrALAZINE** 50 MG TAB PO SCH (20:54)
[2025-02-02] MEDS: VANCOMYCIN HCL 750 MG, VIAL MATE ADAPTER 1 EACH in NS 250 ML IV ONE (21:04)
[2025-02-02] MEDS: ISOSORBIDE MONONITRATE 60 MG XR TAB PO SCH (21:05)
[2025-02-02] MEDS: HEPARIN SOD 5000 UNITS/ML 1 ML VIAL/SYRINGE SC SCH (21:05)
[2025-02-03 00:15] VITALS: BP 140/60; TEMP 97.7; O2SAT 98
[2025-02-03 03:36] VITALS: BP 152/67; TEMP 97.7; O2SAT 98
[2025-02-03] MEDS ORDERED: LIDOCAINE 1% SDV 5 ML VIAL SC PRN (06:00)
[2025-02-03] MEDS ORDERED: SODIUM CHLORIDE 0.9% 1000 ML IV PRN (06:00)
[2025-02-03] MEDS ORDERED: HEPARIN 1,000 UNITS/ML 10 ML VIAL (FOR RADIOLOGY & DIALYSIS ONLY) XX SCH (06:00)
[2025-02-03] MEDS: EZETIMIBE 10 MG TABLET PO SCH (07:57)
[2025-02-03] MEDS: CLOPIDOGREL 75 MG TAB PO SCH (07:57)
[2025-02-03] MEDS: METOPROLOL SUCC. 25 MG *XL* TAB PO SCH (07:58)
[2025-02-03] MEDS: ATORVASTATIN 20 MG TAB PO SCH (07:58)
[2025-02-03] MEDS: FOLIC ACID 1 MG TAB PO SCH (07:59)
[2025-02-03] MEDS: ASPIRIN 81 MG ENTERIC TABLET PO SCH (07:59)
[2025-02-03] MEDS: SEVELAMER *CARBONate* 800 MG TAB PO SCH (07:59)
[2025-02-03 08:22] LABS: VANCOMYCIN RANDOM 22.7 UG/ML
[2025-02-03 08:23] LABS: CALCIUM LEVEL 8.7 MG/DL (8.3-10.6); CARBON DIOXIDE LEVEL 25.0 MMOL/L (20-31); CHLORIDE LEVEL 100.0 MMOL/L (98-107); CREATININE FOR GFR 5.61 MG/DL (0.55-1.30); GLOMERULAR FILTRATION RATE 7.5 (>39); POTASSIUM SERUM 4.0 MMOL/L (3.5-5.1); SODIUM LEVEL 138.0 MMOL/L (136-145)
[2025-02-03] MEDS: HEPARIN 1,000 UNITS/ML 10 ML VIAL (FOR RADIOLOGY & DIALYSIS ONLY) IV PRN (11:13)
[2025-02-03 12:45] VITALS: BP 165/69; TEMP 97.5; O2SAT 98
[2025-02-03] MEDS: **hydrALAZINE** 50 MG TAB PO SCH (14:30)
[2025-02-03 15:39] LABS: BASO # 0.0 10^3/uL (0.0-0.2); BASO % 0.5 % (0.0-1.0); EOS # 0.1 10^3/uL (0.0-0.5); EOS % 1.7 % (0.0-3.0); LYMPH # 0.6 10^3/uL (1.5-5.0); LYMPH % 7.5 % (24.0-44.0); MONO # 0.4 10^3/uL (0.0-0.8); MONO % 4.5 % (2.0-8.0); NEUTROPHILS # 6.8 10^3/uL (1.5-8.5); NEUTROPHILS % 85.2 % (36.0-66.0)
[2025-02-03 15:54] LABS: PLATELET COUNT, AUTOMATED 80 10^3/uL (150-450)
[2025-02-03 16:00] VITALS: BP 167/67; TEMP 98.1; O2SAT 97
[2025-02-03] MEDS ORDERED: VANCOMYCIN HCL 1,000 MG, VIAL MATE ADAPTER 1 EACH in NS 250 ML IV SCH (16:00)
[2025-02-03] MEDS ORDERED: VANCOMYCIN HCL 500 MG in DEXTROSE 5% (D5W) MINI-BAG PLU 100 ML IV SCH (16:00)
[2025-02-03] MEDS: ceFAZolin SOD 1 GM in DEXTROSE 5% (D5W) ADV/MINI-BAG 50 ML IV SCH (16:14)
[2025-02-03 20:10] VITALS: BP 135/52; TEMP 97.7; O2SAT 100
[2025-02-04 00:18] VITALS: BP 140/55; TEMP 97.3; O2SAT 97
[2025-02-04 03:34] VITALS: BP 143/57; TEMP 97.3; O2SAT 95
[2025-02-04 07:21] LABS: BASO # 0.1 10^3/uL (0.0-0.2); BASO % 0.9 % (0.0-1.0); EOS # 0.2 10^3/uL (0.0-0.5); EOS % 3.8 % (0.0-3.0); LYMPH # 0.5 10^3/uL (1.5-5.0); LYMPH % 9.8 % (24.0-44.0); MONO # 0.4 10^3/uL (0.0-0.8); MONO % 6.9 % (2.0-8.0); NEUTROPHILS # 4.3 10^3/uL (1.5-8.5); NEUTROPHILS % 78.1 % (36.0-66.0)
[2025-02-04 07:46] LABS: PLATELET COUNT, AUTOMATED 88 10^3/uL (150-450)
[2025-02-04 07:54] LABS: CALCIUM LEVEL 8.7 MG/DL (8.3-10.6); CARBON DIOXIDE LEVEL 25.0 MMOL/L (20-31); CHLORIDE LEVEL 103.0 MMOL/L (98-107); CREATININE FOR GFR 4.12 MG/DL (0.55-1.30); GLOMERULAR FILTRATION RATE 10.9 (>39); POTASSIUM SERUM 3.6 MMOL/L (3.5-5.1); SODIUM LEVEL 141.0 MMOL/L (136-145)
[2025-02-04 12:00] VITALS: BP 124/54; TEMP 97.2; O2SAT 100
[2025-02-04 14:32] VITALS: BP 124/54
[2025-02-04] MEDS ORDERED: AMOX500C PO (15:36)
== END 2025-02-04 16:07 | disposition home or self-care (01) | DRG 314 ==
LOC: M MSPAV 16:28
PROVIDERS: ADMIT Internal Medicine; ATTEND Internal Medicine
PROC: 5A1D70Z Performance of Urinary Filtration, Intermittent, Less than 6 Hours Per Day (ICD-10-PCS; principal; 2025-02-03)
PROC: B246ZZZ Ultrasonography of Right and Left Heart (ICD-10-PCS; 2025-02-04)
DX: T82.7XXA Infection and inflammatory reaction due to other cardiac and vascular devices, implants and grafts, initial encounter (principal); N18.6 End stage renal disease; I50.32 Chronic diastolic (congestive) heart failure; I13.2 Hypertensive heart and chronic kidney disease with heart failure and with stage 5 chronic kidney disease, or end stage renal disease; R78.81 Bacteremia; N61.0 Mastitis without abscess; E78.5 Hyperlipidemia, unspecified; E11.22 Type 2 diabetes mellitus with diabetic chronic kidney disease; H40.9 Unspecified glaucoma; D63.8 Anemia in other chronic diseases classified elsewhere; E87.5 Hyperkalemia; I25.10 Atherosclerotic heart disease of native coronary artery without angina pectoris; B95.1 Streptococcus, group B, as the cause of diseases classified elsewhere; L53.9 Erythematous condition, unspecified; Z79.82 Long term (current) use of aspirin; Z79.4 Long term (current) use of insulin; Z79.899 Other long term (current) drug therapy; Z99.2 Dependence on renal dialysis; I34.0 Nonrheumatic mitral (valve) insufficiency

== ENCOUNTER → 2025-04-12 | Outpatient (CLI) | payer MEDICARE ==
[~2025-04-12] MED LIST changes: +AMLO2.5T3 PO; +AMOX500C PO; +DORZ1SOL4 OS; +FLUO1OPD OD
== END ==
LOC: M WHC 08:08
PROVIDERS: ATTEND Internal Medicine Infectious Disease
DX: Z12.31 Encounter for screening mammogram for malignant neoplasm of breast (principal); R92.333 Mammographic heterogeneous density, bilateral breasts

== ENCOUNTER → 2025-04-28 | Outpatient (CLI) | payer MEDICARE | LOC: M WHC 09:45 | PROVIDERS: ATTEND Surgery | DX: R92.8 Other abnormal and inconclusive findings on diagnostic imaging of breast (principal); Z99.2 Dependence on renal dialysis; Z95.828 Presence of other vascular implants and grafts; R60.0 Localized edema ==